=== PATIENT | female | born 1970 | race Caucasian/White ===

== ENCOUNTER 2016-12-25 01:29 | Emergency (ER) | payer SELFPAY ==
[2016-12-25] MEDS ORDERED: Sodium Chloride 0.9% 10 ML Syringe FLUSH PRN (01:43)
[2016-12-25] MEDS ORDERED: Ketorolac 30 MG/ML SDV IVPUSH ONE (01:43)
[2016-12-25] MEDS ORDERED: Ondansetron 4 MG/2 ML SDV IVPUSH ONE (01:44)
[2016-12-25] MEDS ORDERED: Sodium Chloride 0.9% 1,000 ML IV SCH (01:45)
--- NOTE | 2016-12-25 01:48 | EDM.PDOC ---
ED HPI GI/ABDOMINAL - General Chief Complaint: Abdominal Pain Stated Complaint: abdominal pain Time Seen by Provider: 12/25/16 01:38 Source of Information: Reports: Patient, RN, RN notes reviewed History Limitations: Reports: No limitations - History of Present Illness INITIAL COMMENTS - FREE TEXT/NARRATIVE: Patient presents to the ED at [facility] with a 5 day history of lower abdominal/pelvic pain. Patient states she started not feeling well last . She feels very nauseated and started noticing blood in the urine yesterday. Her pain has progressively gotten worse. No vomiting or diarrhea. Patient is only voiding small amounts with dysuria. Symptom Onset Date: 12/19/16 Timing/Duration: Reports: Getting worse Location: other (lower abdomen/pelvic) Quality: Reports: burning, cramping Severity: moderate Improves with: Reports: lying down Worsens with: Reports: urinating, palpation, sitting up Context: Denies: sick contact, bad/questionable food, out of country travel, recent surgery, recent trauma Associated Symptoms (-Female): Reports: nausea/vomiting - Related Data Allergies/ADRs: Allergies Allergy/AdvReac Type Severity Reaction Status Date / Time No Known Drug Allergies Allergy Other Verified 12/25/16 01:32 Home Meds: Home Meds Dextroamphetamine/Amphetamine [Amphetamine Salts] 10 mg PO ASDIRECTED 12/12/13 [ History] Ibuprofen 1 tab PO Q4H PRN 01/07/15 [History] Naproxen Sodium 220 mg PO BID PRN 01/07/15 [History] medroxyPROGESTERone [Depo-Provera Contraceptive] 150 mg IM Q3M 01/07/15 [History ] Hydrochlorothiazide 12.5 mg PO DAILY 12/25/16 [History] Past Medical History Cardiovascular History: Reports: Hypertension Genitourinary History: Reports: Renal calculus Psychiatric History: Reports: ADHD Immunologic 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 (see below) Other Immunologic History: sarcoidosis Social & Family History - Tobacco Use Smoking Status *Q: Current Every Day Smoker Years of Tobacco use: 33 Packs/Tins Daily: 1 Second Hand Smoke Exposure: Yes - Alcohol Use Days Per Week of Alcohol Use: 0 - Recreational Drug Use Recreational Drug Use: No ED ROS GENERAL - Review of Systems Review Of Systems: See Below Constitutional: Denies: fever, chills, weakness Respiratory: Denies: Shortness of Breath, Cough Cardiovascular: Denies: Chest pain, Palpitations GI/Abdominal: Reports: Abdominal pain, Nausea. Denies: Diarrhea, Vomiting : Reports: dysuria, flank pain, hematuria Skin: Reports: no symptoms Neurological: Reports: No Symptoms. Denies: Dizziness, Headache ED EXAM, GI/ABD - Physical Exam Exam: See Below Exam Limited By: No limitations General Appearance: alert, no apparent distress, thin, cachetic Respiratory/Chest: no respiratory distress, lungs clear, normal breath sounds Cardiovascular: regular rate, rhythm GI/Abdominal: hyperactive bowel sounds, tenderness, guarding. No: rebound, rigidity (Female) Exam: Deferred Neurological: alert, oriented Skin Exam: Warm, Dry, Intact, Normal color, No rash Course - Vital Signs Last Recorded V/S: Last Vital Signs Temp 36.9 C 12/25/16 03:20 Pulse 74 12/25/16 03:20 Resp 16 12/25/16 03:20 BP 130/83 12/25/16 03:20 Pulse Ox 100 12/25/16 03:20 - Orders/Labs/Meds Orders: Active Orders 24 hr Category Date Time Status Abdomen Pelvis wo Cont [CT] Stat Exams 12/25/16 01:42 Taken AMPHET/METH EXT CONF (GCMS) Stat Lab 12/25/16 02:00 Received Sodium Chloride 0.9% [Normal Saline] 1,000 ml Med 12/25/16 01:45 Active IV ASDIRECTED Sodium Chloride 0.9% [Saline Flush] Med 12/25/16 01:43 Active 10 ml FLUSH ASDIRECTED PRN Peripheral IV Insertion Adult [OM.PC] Routine Oth 12/25/16 01:43 Ordered Medication Orders Sodium Chloride (Normal Saline) 1,000 mls @ 999 mls/hr IV ASDIRECTED CJ Last Admin: 12/25/16 01:55 Dose: 999 mls/hr Sodium Chloride (Saline Flush) 10 ml FLUSH ASDIRECTED PRN PRN Reason: Keep Vein Open Labs: Laboratory Tests 12/25/16 12/25/16 12/25/16 Range/Units 02:00 02:00 02:00 WBC (4.0-10.0) x10^3/uL RBC (4.00-5.50) x10^6/uL Hgb (12.0-16.0) g/dL Hct (33.0-47.0) % MCV (78.0-93.0) fL MCH (26.0-32.0) pg MCHC (32.0-36.0) g/dL RDW Coeff of Jen (10.0-15.0) % Plt Count (130-400) x10^3/uL Add Manual Diff Neutrophils % (Manual) (50-80) % Band Neutrophils % (0-6) % Lymphocytes % (Manual) (25-50) % Monocytes % (Manual) (2-11) % Eosinophils % (Manual) (0-4) % Basophils % (Manual) (0-1) % Platelet Estimate Sodium (136-145) mmol/L Potassium (3.5-5.1) mmol/L Chloride (98-107) mmol/L Carbon Dioxide (21-32) mmol/L BUN (7-18) mg/dL Creatinine (0.55-1.02) mg/dL Est Cr Clr Drug Dosing Estimated GFR (MDRD) Glucose (74-106) mg/dL Calcium (8.5-10.1) mg/dL Urine Color Yellow (YELLOW) Urine Appearance Slightly cloudy H (CLEAR) Urine pH 7.0 (5.0-8.0) Ur Specific Loa 1.020 Urine Protein Negative (NEGATIVE) mg/dL Urine Glucose (UA) Negative (NEGATIVE) mg/dL Urine Ketones Negative (NEGATIVE) mg/dL Urine Occult Blood Negative (NEGATIVE) Urine Nitrite Negative (NEGATIVE) Urine Bilirubin Negative (NEGATIVE) Urine Urobilinogen 0.2 (0.2) EU/dL Ur Leukocyte Esterase Negative (NEGATIVE) Urine RBC 0-5 (NOT SEEN) /HPF Urine WBC 0-5 (NOT SEEN) /HPF Ur Squamous Epith Cells Moderate H (NEGATIVE) /HPF Amorphous Sediment Moderate Urine Bacteria Moderate H (NEGATIVE) /HPF Granular Casts Few H (NEGATIVE) /HPF Urine Mucus Few H (NEGATIVE) /LPF Urine HCG, Qual Negative (NEGATIVE) Urine Opiates Screen Negative (NEGATIVE) Ur Buprenorphine Scrn Negative (NEGATIVE) Ur Oxycodone Screen Negative (NEGATIVE) Urine Methadone Screen Negative (NEGATIVE) Ur Barbiturates Screen Negative (NEGATIVE) Ur Tricyclics Screen Negative (NEGATIVE) Ur Amphetamine Screen Positive H (NEGATIVE) U Methamphetamines Scrn Negative (NEGATIVE) Urine MDMA Screen Negative (NEGATIVE) U Benzodiazepines Scrn Negative (NEGATIVE) U Cocaine Metab Screen Negative (NEGATIVE) U Marijuana (THC) Screen Negative (NEGATIVE) 12/25/16 12/25/16 Range/Units 02:10 02:10 WBC 11.7 H (4.0-10.0) x10^3/uL RBC 3.99 L (4.00-5.50) x10^6/uL Hgb 12.7 (12.0-16.0) g/dL Hct 36.4 (33.0-47.0) % MCV 91.2 (78.0-93.0) fL MCH 31.8 (26.0-32.0) pg MCHC 34.9 (32.0-36.0) g/dL RDW Coeff of Jen 12.9 (10.0-15.0) % Plt Count 297 (130-400) x10^3/uL Add Manual Diff Yes Neutrophils % (Manual) 52 (50-80) % Band Neutrophils % 1 (0-6) % Lymphocytes % (Manual) 32 (25-50) % Monocytes % (Manual) 7 (2-11) % Eosinophils % (Manual) 6 H (0-4) % Basophils % (Manual) 2 H (0-1) % Platelet Estimate Adequate Sodium 143 (136-145) mmol/L Potassium 3.3 L (3.5-5.1) mmol/L Chloride 108 H (98-107) mmol/L Carbon Dioxide 27 (21-32) mmol/L BUN 10 (7-18) mg/dL Creatinine 0.7 (0.55-1.02) mg/dL Est Cr Clr Drug Dosing TNP Estimated GFR (MDRD) > 60 Glucose 101 (74-106) mg/dL Calcium 8.1 L (8.5-10.1) mg/dL Urine Color (YELLOW) Urine Appearance (CLEAR) Urine pH (5.0-8.0) Ur Specific Loa Urine Protein (NEGATIVE) mg/dL Urine Glucose (UA) (NEGATIVE) mg/dL Urine Ketones (NEGATIVE) mg/dL Urine Occult Blood (NEGATIVE) Urine Nitrite (NEGATIVE) Urine Bilirubin (NEGATIVE) Urine Urobilinogen (0.2) EU/dL Ur Leukocyte Esterase (NEGATIVE) Urine RBC (NOT SEEN) /HPF Urine WBC (NOT SEEN) /HPF Ur Squamous Epith Cells (NEGATIVE) /HPF Amorphous Sediment Urine Bacteria (NEGATIVE) /HPF Granular Casts (NEGATIVE) /HPF Urine Mucus (NEGATIVE) /LPF Urine HCG, Qual (NEGATIVE) Urine Opiates Screen (NEGATIVE) Ur Buprenorphine Scrn (NEGATIVE) Ur Oxycodone Screen (NEGATIVE) Urine Methadone Screen (NEGATIVE) Ur Barbiturates Screen (NEGATIVE) Ur Tricyclics Screen (NEGATIVE) Ur Amphetamine Screen (NEGATIVE) U Methamphetamines Scrn (NEGATIVE) Urine MDMA Screen (NEGATIVE) U Benzodiazepines Scrn (NEGATIVE) U Cocaine Metab Screen (NEGATIVE) U Marijuana (THC) Screen (NEGATIVE) Meds: Medications Generic Name Dose Route Start Last Admin Trade Name Freq PRN Reason Stop Dose Admin Sodium Chloride 1,000 mls @ 999 mls/hr 12/25/16 01:45 12/25/16 01:55 Normal Saline IV 999 mls/hr ASDIRECTED CJ Administration Sodium Chloride 10 ml 12/25/16 01:43 Saline Flush FLUSH ASDIRECTED PRN Keep Vein Open Discontinued Medications Generic Name Dose Route Start Last Admin Trade Name Freq PRN Reason Stop Dose Admin Ketorolac Tromethamine 30 mg 12/25/16 01:43 12/25/16 01:56 Toradol IVPUSH 12/25/16 01:44 30 mg ONETIME ONE Administration Ondansetron HCl 4 mg 12/25/16 01:44 12/25/16 01:56 Zofran IVPUSH 12/25/16 01:45 4 mg ONETIME ONE Administration Potassium Chloride 40 meq 12/25/16 02:37 12/25/16 03:18 Klor-Con M20 PO 12/25/16 02:38 40 meq ONETIME ONE Administration - Radiology Interpretation Free Text/Narrative:: Multiple small bilateral renal cysts and nonobstructing calyceal stones again demostrated No urinary tract obstruction, appendicitis, or other acute abdominopelvic process, but there is moderate predominately proximal colonic stool; correlate clinically for possible proximal constipation See scanned report CT Results Date: 12/25/16 CT Results Time: 03:24 Departure - Departure Time of Disposition: 03:30 Disposition: Home, Self-Care 01 Condition: good Clinical Impression: Constipation Qualifiers: Constipation type: unspecified constipation type Qualified Code(s): K59.00 - Constipation, unspecified Instructions: Constipation, Adult, [id number] Referrals: Kaleigh Hernandez DO [Physician] - Forms: ED Department Discharge - Problem List Review Problem List Initiated/Reviewed/Updated: Yes - My Orders Last 24 Hours: My Active Orders 12/25/16 01:42 Abdomen Pelvis wo Cont [CT] Stat 12/25/16 01:43 Sodium Chloride 0.9% [Saline Flush] 10 ml FLUSH ASDIRECTED PRN Peripheral IV Insertion Adult [OM.PC] Routine 12/25/16 01:45 Sodium Chloride 0.9% [Normal Saline] 1,000 ml IV ASDIRECTED 12/25/16 02:00 AMPHET/METH EXT CONF (GCMS) Stat - Assessment/Plan Last 24 Hours: My Active Orders 12/25/16 01:42 Abdomen Pelvis wo Cont [CT] Stat 12/25/16 01:43 Sodium Chloride 0.9% [Saline Flush] 10 ml FLUSH ASDIRECTED PRN Peripheral IV Insertion Adult [OM.PC] Routine 12/25/16 01:45 Sodium Chloride 0.9% [Normal Saline] 1,000 ml IV ASDIRECTED 12/25/16 02:00 AMPHET/METH EXT CONF (GCMS) Stat
[2016-12-25 02:30] LABS: CHLORIDE,CL 108 mmol/L (98-107); SODIUM,NA 143 mmol/L (136-145)
[2016-12-25] MEDS ORDERED: Potassium Chloride 20 MEQ Tab.ER PO ONE (02:37)
[2016-12-25 03:21] VITALS: BP 130/83
== END 2016-12-25 03:47 | disposition home or self-care (01) ==
LOC: VM.ED 01:29
DX: K59.00 Constipation, unspecified (principal); I10 Essential (primary) hypertension; F17.210 Nicotine dependence, cigarettes, uncomplicated; Z79.899 Other long term (current) drug therapy
CPT/HCPCS: 36415; 74176; 80048; 80305; 81001; 81025; 85025; 96361; 96372; 96374; 99284; A9270; G0480; J1885; J2405; J7030

== ENCOUNTER 2017-12-18 17:38 | Emergency (ER) | payer OTHER, BC ==
[2017-12-18] MEDS ORDERED: Lidocaine 1% 30 ML SDV INJECT ONE (17:45)
[2017-12-18] MEDS ORDERED: Take Home: Acetaminophen/HYDROcodone 325-10 MG, 5 Tab Pack PO ONE (19:06)
[2017-12-18] MEDS ORDERED: Take Home: Cephalexin 500 MG Cap, 4 Cap Pack PO ONE (19:06)
[2017-12-18 19:30] VITALS: BP 158/105
--- NOTE | 2017-12-18 19:50 | EDM.PDOC ---
ED HPI GENERAL MEDICAL PROBLEM - General Chief Complaint: Upper Extremity Injury/Pain Time Seen by Provider: 12/18/17 17:40 Source of Information: Reports: Patient History Limitations: Reports: No Limitations - History of Present Illness INITIAL COMMENTS - FREE TEXT/NARRATIVE: PtAmmy presents to ER with complaints to injury to the tip of her L middle finger. 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 She states that she sustained a laceration to the pad of her L middle finger, as well as discoloration to the nailbed. She denies any other injury than what is isolated to the tip of her finger. Onset: Today Location: Reports: Upper Extremity, Left Quality: Reports: Ache, Burning, Sharp, Stabbing, Throbbing Left 3-Middle finger Pain Score (Numeric/FACES): 10 - Related Data Allergies Allergy/AdvReac Type Severity Reaction Status Date / Time No Known Drug Allergies Allergy Other Verified 12/25/16 01:32 Home Meds: Home Meds Dextroamphetamine/Amphetamine [Amphetamine Salts] 10 mg PO ASDIRECTED 12/12/13 [ History] Ibuprofen 1 tab PO Q4H PRN 01/07/15 [History] Naproxen Sodium 220 mg PO BID PRN 01/07/15 [History] medroxyPROGESTERone [Depo-Provera Contraceptive] 150 mg IM Q3M 01/07/15 [History ] Hydrochlorothiazide 12.5 mg PO DAILY 12/25/16 [History] Past Medical History Cardiovascular History: Reports: Hypertension Respiratory 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 (See Below) Other Respiratory History: sarcoidosis Genitourinary History: Reports: Renal Calculus 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) Other OB/BYN History: 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 Musculoskeletal History: Reports: Fibromyalgia, Other (See Below) Other Musculoskeletal History: arthralgia of both hands Psychiatric History: Reports: ADHD Immunologic 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 (See Below) Other Immunologic History: sarcoidosis Social & Family History - Tobacco Use Smoking Status *Q: Current Every Day Smoker Years of Tobacco use: 30 Packs/Tins Daily: 1.5 Second Hand Smoke Exposure: Yes - Alcohol Use Days Per Week of Alcohol Use: 0 - Recreational Drug Use Recreational Drug Use: No Review of Systems - Review of Systems Review Of Systems: See Below Constitutional: Reports: No Symptoms Musculoskeletal: Reports: Hand Pain (L middle finger) Skin: Reports: No Symptoms Neurological: Reports: No Symptoms ED EXAM, GENERAL - Physical Exam Exam: See Below Exam Limited By: No Limitations General Appearance: Alert, WD/WN, No Apparent Distress Extremities: Other (1.5 cm laceration to volar aspect of L middle finger. bluish discoloration to nail bed consistent with subungual hematoma. No obvious crepitus or deformity. ROM to DIP is normal.) Neurological: Alert, Oriented, CN II-XII Intact, Normal Cognition, Normal Gait, Normal Reflexes, No Motor/Sensory Deficits ED TRAUMA EXTREMITY PROCEDURES - Laceration/Wound Repair Left Middle Distal Dorsal Finger Lac/Wound Length In cm: 1.5 Appearance: Superficial Distal NVT: Neuro & Vascular Intact Anesthetic Type: Digital Local Anesthesia - Lidocaine (Xylocaine): 1% Plain Local Anesthetic Volume: 5cc Skin Prep: Chlorhexidine (Hibiciens), Saline Saline Irrigation (cc's): 500 Exploration/Debridement/Repair: Wound Explored, Explored to Base, Minimal Debridement, No Foreign Material Found Closed With: Sutures Suture Size: 4-0 # of Sutures: 3 Suture Type: Nylon, Interrupted, Simple Tetanus Status Addressed: Yes (UTD according to pt.) Progress/Comments: Finger was cleansed with saline and chlorhexidine. Using sterile technique, digital block was placed in base of 3rd digit of L hand using 4 ml. of 1% lidocaine. 1.5 ml lidocaine was placed in laceration. A total of 3 interrupted 4.0 nylon sutures was used to close the laceration. The nail was further cleansed with betadine and nail was trephinated with disposable bovie. Minimal blood was removed from fingernail. Antibiotic ointment was placed on laceration and zerofoam was used to cover the fingertip. This was secured with gauze sponges and tube gauze. - Splinting Left 3rd Digit Pre-Procedure NV Status: Normal Post-Procedure NV Status: Normal Splint Material: Aluminum-Foam Splint Design: Other (baseball fingertip splint) Applied & Form Fitted By: Provider Provider Post-Splint Application NV Check: NV Status Normal, Good Position Complications: No Course - Vital Signs Last Recorded V/S: Last Vital Signs Temp 36.1 C 12/18/17 17:41 Pulse 97 12/18/17 17:41 Resp 22 H 12/18/17 17:41 BP 158/105 H 12/18/17 19:29 Pulse Ox 99 12/18/17 17:41 - Orders/Labs/Meds Orders: Active Orders 24 hr Category Date Time Status Fingers Third Digit Lt F2 [CR] Stat Exams 12/18/17 17:58 Taken Meds: Medications Discontinued Medications Generic Name Dose Route Start Last Admin Trade Name Freq PRN Reason Stop Dose Admin Hydrocodone Bitart/Acetaminophen 1 packet 12/18/17 19:06 Take Home: Acetaminophen/Hydrocodone 325-10mg PO 12/18/17 19:07 ONETIME ONE Cephalexin 1 packet 12/18/17 19:06 Take Home: Cephalexin 500 Mg, 4 Cap Pack PO 12/18/17 19:07 ONETIME ONE Lidocaine HCl 30 ml 12/18/17 17:45 12/18/17 17:45 Xylocaine-Mpf 1% INJECT 12/18/17 17:46 30 ml ONETIME ONE Administration - Radiology Interpretation Free Text/Narrative:: acute nondisplaced fracture of distal phalanx (3rd digit L hand) was noted. Departure - Departure Time of Disposition: 19:49 Disposition: Home, Self-Care 01 Condition: Good Clinical Impression: Phalanx, distal fracture of finger, Laceration, Subungual hematoma of left middle finger - Discharge Information Instructions: Finger Fracture, Laceration Care, Adult, Nail Bed Injury Referrals: Kaleigh Hernandez DO [Primary Care Provider] - Forms: ED Department Discharge Additional Instructions: Change dressing in 48 hours. Sutures out in 14 days. Keflex 500mg three times daily for 7 days. Albia 10/325mg 1 every 4-6 hours as needed for pain. Clean nailbed with qtip with warm water several times a day to keep nail trephination holes open. Keep laceration covered if still oozing blood. Otherwise, keep open to air as much as possible. - My Orders Last 24 Hours: My Active Orders 12/18/17 17:58 Fingers Third Digit Lt F2 [CR] Stat - Assessment/Plan Last 24 Hours: My Active Orders 12/18/17 17:58 Fingers Third Digit Lt F2 [CR] Stat Assessment:: Distal phalynx fracture 3rd digit L hand 1.5cm laceration to 3rd digit L hand Subungual hematoma with trephination 3rd digit L hand.
== END 2017-12-18 19:49 | disposition home or self-care (01) ==
LOC: VM.ED 17:38
DX: S62.663A Nondisplaced fracture of distal phalanx of left middle finger, initial encounter for closed fracture (principal); S61.213A Laceration without foreign body of left middle finger without damage to nail, initial encounter; I10 Essential (primary) hypertension; Z79.899 Other long term (current) drug therapy; W31.89XA Contact with other specified machinery, initial encounter
CPT/HCPCS: 12001; 73140; 99283; A9270

== ENCOUNTER 2018-11-06 16:24 | Emergency (ER) | payer OTHER, BC ==
[2018-11-06 16:41] VITALS: BP 132/87
--- NOTE | 2018-11-06 17:26 | CR ---
[id number] RAD/RAD Fingers Right EXAM: RAD Fingers Right CLINICAL DATA: TRAUMA COMPARISON: NO PREVIOUS SIMILAR EXAM IS AVAILABLE. FINDINGS: No fracture or dislocation is seen. There is no radiopaque foreign body in the soft tissues. There is no air in the soft tissues. There is no cortical thickening or periosteal reaction either. IMPRESSION: NEGATIVE PLAIN FILM EXAM. Marco Scanlon MD 11/06/18 [id number] Thank you for allowing us to participate in the care of your patient.
--- NOTE | 2018-11-06 17:50 | EDM.PDOC ---
ED HPI GENERAL MEDICAL PROBLEM - General Chief Complaint: Upper Extremity Injury/Pain Time Seen by Provider: 11/06/18 16:35 Source of Information: Reports: Patient History Limitations: Reports: No Limitations - History of Present Illness INITIAL COMMENTS - FREE TEXT/NARRATIVE: PtAmmy presents to ER with complaints of pain to the 5th digit of the R hand. States that she injured it at work yesterday. She was moving heavy totes that were attached to a rope and the rope became wrapped around the digit, injuring it at the base. Denies any paresthesia to the extremity. Does complain of decreased ROM, particularly to the MCP. Denies any injury elsewhere other than what is isolated to the finger. Onset: Today Onset Date: 11/05/18 Location: Reports: Upper Extremity, Right Quality: Reports: Ache, Throbbing Severity: Moderate Improves with: Reports: Rest Worsens with: Reports: Movement Right Finger-Little Pain Score (Numeric/FACES): 7 - Related Data Allergies Allergy/AdvReac Type Severity Reaction Status Date / Time No Known Drug Allergies Allergy Other Verified 11/06/18 16:43 Home Meds: Home Meds Dextroamphetamine/Amphetamine [Amphetamine Salts] 10 mg PO ASDIRECTED 12/12/13 [ History] Ibuprofen 1 tab PO Q4H PRN 01/07/15 [History] Naproxen Sodium 220 mg PO BID PRN 01/07/15 [History] medroxyPROGESTERone [Depo-Provera Contraceptive] 150 mg IM Q3M 01/07/15 [History ] hydroCHLOROthiazide [Hydrochlorothiazide] 25 mg PO DAILY 12/25/16 [History] Past Medical History Cardiovascular History: Reports: Hypertension Respiratory 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 (See Below) Other Respiratory History: sarcoidosis Genitourinary History: Reports: Renal Calculus 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 ), Other Neurological: Reports: No Symptoms, Other. Denies: Numbness, Paresthesia ED EXAM, GENERAL - Physical Exam Exam: See Below Extremities: Normal Capillary Refill, Joint Swelling, Limited Range of Motion, Increased Warmth Course - Vital Signs Last Recorded V/S: Last Vital Signs Temp 36.8 C 11/06/18 16:30 Pulse 89 11/06/18 16:30 Resp 16 11/06/18 16:30 BP 132/87 11/06/18 16:30 Pulse Ox 100 11/06/18 16:30 - Radiology Interpretation Free Text/Narrative:: No acute pathology noted on radiographs. Departure - Departure Time of Disposition: 18:03 Disposition: Home, Self-Care 01 Clinical Impression: Finger sprain - Discharge Information Instructions: Finger Sprain, Adult, [id number], How to Deny Tape, HUNTER for Routine Care of Injuries Referrals: Kaleigh Hernandez DO [Primary Care Provider] - Forms: ED Department Discharge Additional Instructions: Tylenol and ibuprofen as needed Ice the area for 15 min every 1-2 hours to decrease inflammation Slowly work on improving range of motion to the fingers. Deny tape the fingers as needed, especially if you are using your hands for work If continuing to have discomfort, follow-up in clinic in 7-10 days for repeat x- rays. - Assessment/Plan Plan: Tylenol and ibuprofen as needed Ice the area for 15 min every 1-2 hours to decrease inflammation Slowly work on improving range of motion to the fingers. Deny tape the fingers as needed, especially if you are using your hands for work If continuing to have discomfort, follow-up in clinic in 7-10 days for repeat x- rays.
== END 2018-11-06 17:25 | disposition home or self-care (01) ==
LOC: VM.ED 16:24
DX: S63.616A Unspecified sprain of right little finger, initial encounter (principal); I10 Essential (primary) hypertension; Z79.899 Other long term (current) drug therapy; Y99.0 Civilian activity done for income or pay; X50.9XXA Other and unspecified overexertion or strenuous movements or postures, initial encounter
CPT/HCPCS: 73140-F9; 99283-25

== ENCOUNTER 2019-05-30 15:39 | Emergency (ER) | payer BC ==
[2019-05-30] MEDS ORDERED: Albuterol/Ipratropium 3.0-0.5 MG/3 ML Neb Soln NEB ONE (15:51)
[2019-05-30] MEDS ORDERED: Dexamethasone 4 MG/ML SDV IM ONE (15:51)
[2019-05-30] MEDS ORDERED: Benzonatate 100 MG Cap PO PRN (15:56)
--- NOTE | 2019-05-30 15:57 | EDM.PDOC ---
ED HPI GENERAL MEDICAL PROBLEM - General Chief Complaint: General Stated Complaint: RESPIRATORY Time Seen by Provider: 05/30/19 15:45 Source of Information: Reports: Patient History Limitations: Reports: No Limitations - History of Present Illness INITIAL COMMENTS - FREE TEXT/NARRATIVE: Patient comes into the emergency department with complaint of right upper musculoskeletal discomfort in the chest. She also complains about a chronic cough that she's been struggling with symptoms March. Patient states that she has followed up with her primary care provider who has given her an inhaler. She has seen pulmonology in the past regarding her chronic cough and sarcoidosis. She has not followed up with anyone it in extended period of time for she's been feeling pretty well. She states back in March she started with this cough and it is slowly progress. She denies having any fever, nausea, shortness of breath, chest pain, or peripheral edema. She states that the cough is more prevalent when she is trying to lay flat or rests. The cough has not changed in the past 2 months. She states about 2 days ago she started noticing a right sided musculoskeletal discomfort after a severe coughing episode. She states it's palpable to touch on her right upper chest discomfort is described as a throbbing sensation with movement or touching the area. The discomfort is reproducible and palpable/tender. Pt denies any trauma or falls in that area. Patient denies any other concerns or complaints and states that she's been relatively healthy. Onset: Gradual Location: Reports: Chest Quality: Reports: Throbbing Severity: Moderate Improves with: Reports: Other (elevating head) Worsens with: Reports: Movement (or laying flat) Associated Symptoms: Reports: No Other Symptoms Right Chest Pain Score (Numeric/FACES): 10 - Related Data Allergies Allergy/AdvReac Type Severity Reaction Status Date / Time No Known Drug Allergies Allergy Other Verified 05/30/19 15:53 Home Meds: Home Meds Albuterol Sulfate [Albuterol Sulfate Hfa] 2 inh Q6H PRN 05/30/19 [History] Amphetamine Sulfate [Evekeo Odt] 20 mg ASDIRECTED 05/30/19 [History] Benzonatate [Tessalon Perle] 100 mg PO TID #15 capsule 05/30/19 [Rx] Citalopram Hydrobromide [Celexa] 40 mg DAILY 05/30/19 [History] Codeine/Promethazine [Phenergan with Codeine] 10 ml BEDTIME 05/30/19 [History] hydroCHLOROthiazide [Hydrochlorothiazide] 25 mg DAILY 05/30/19 [History] predniSONE [Prednisone] 20 mg PO BID #8 tablet 05/30/19 [Rx] Past Medical History Cardiovascular History: Reports: Hypertension Respiratory 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 (See Below) Other Respiratory History: sarcoidosis Genitourinary History: Reports: Renal Calculus 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 Denies: Shortness of Breath, Sputum Cardiovascular: Reports: No Symptoms Endocrine: Reports: No Symptoms GI/Abdominal: Reports: No Symptoms : Reports: No Symptoms Musculoskeletal: Reports: No Symptoms Skin: Reports: No Symptoms Neurological: Reports: No Symptoms Psychiatric: Reports: No Symptoms Hematologic/Lymphatic: Reports: No Symptoms Immunologic: Reports: No Symptoms ED EXAM, GENERAL - Physical Exam Exam: See Below Exam Limited By: No Limitations General Appearance: Alert, WD/WN, No Apparent Distress Nose: Normal Inspection, Nasal Swelling Throat/Mouth: Normal Inspection, Normal Lips, No Airway Compromise Head: Atraumatic, Normocephalic, Facial Swelling Respiratory/Chest: No Accessory Muscle Use, Wheezing, Stridor. No: Decreased Breath Sounds, Accessory Muscle Use Cardiovascular: Normal Peripheral Pulses, Regular Rate, Rhythm, No Edema, Other (palpable tenderness right upper lateral chest. No redness, warmth, deformity, or ecchymosis noted. Palpation and arm lifting causes discomfort but can do it. If resting no pain/discomfort noted. ) Extremities: Normal Inspection, Normal Range of Motion, Non-Tender, No Pedal Edema, Normal Capillary Refill Neurological: Alert, Oriented, CN II-XII Intact, Normal Cognition, Normal Gait Psychiatric: Normal Affect, Normal Mood Skin Exam: Dry, Intact Course - Vital Signs Last Recorded V/S: Last Vital Signs Temp 36.1 C 05/30/19 15:40 Pulse 91 05/30/19 15:40 Resp 20 05/30/19 15:40 BP 138/85 05/30/19 15:40 Pulse Ox 97 05/30/19 15:40 - Orders/Labs/Meds Orders: Active Orders 24 hr Category Date Time Status RT Aerosol Therapy [RC] ASDIRECTED Care 05/30/19 15:51 Ordered Chest 2V [CR] Stat Exams 05/30/19 15:50 Ordered Benzonatate [Tessalon Perles] Med 05/30/19 15:56 Ordered 200 mg PO TID PRN Medication Orders Benzonatate (Tessalon Perles) 200 mg PO TID PRN PRN Reason: Cough Last Admin: 05/30/19 16:13 Dose: 200 mg Meds: Medications Generic Name Dose Route Start Last Admin Trade Name Freq PRN Reason Stop Dose Admin Benzonatate 200 mg 05/30/19 15:56 05/30/19 16:13 Tessalon Perles PO 200 mg TID PRN Administration Cough Discontinued Medications Generic Name Dose Route Start Last Admin Trade Name Freq PRN Reason Stop Dose Admin Albuterol/Ipratropium 3 ml 05/30/19 15:51 05/30/19 16:13 Duoneb 3.0-0.5 Mg/3 Ml NEB 05/30/19 15:52 3 ml ONETIME ONE Administration Dexamethasone 8 mg 05/30/19 15:51 05/30/19 16:13 Dexamethasone IM 05/30/19 15:52 8 mg ONETIME ONE Administration Departure - Departure Time of Disposition: 16:25 Disposition: Home, Self-Care 01 Condition: Good Clinical Impression: Bronchospasm, Costochondral chest pain - Discharge Information *PRESCRIPTION DRUG MONITORING PROGRAM REVIEWED*: Not Applicable *COPY OF PRESCRIPTION DRUG MONITORING REPORT IN PATIENT GENO: Not Applicable Prescriptions: Benzonatate [Tessalon Perle] 100 mg PO TID #15 capsule predniSONE [Prednisone] 20 mg PO BID #8 tablet Instructions: Bronchospasm, Adult, Costochondritis, [id number], Chest Wall Pain, [id number] Forms: ED Department Discharge, ED Return to Work/School Form Additional Instructions: 1. rest 2. take prednisone 20mg BID for 5 days 3. Can take the Tessalon pearles to help for severe coughing episodes 4. Follow up with PCP if not better 5. For the costochondritis apply ice to the chest 3-4 times a day if needed, splint the region when coughing 6. Activity and diet as tolerated 7. Call with any questions or concerns - My Orders Last 24 Hours: My Active Orders 05/30/19 15:50 Chest 2V [CR] Stat 05/30/19 15:51 RT Aerosol Therapy [RC] ASDIRECTED 05/30/19 15:56 Benzonatate [Tessalon Perles] 200 mg PO TID PRN - Assessment/Plan Last 24 Hours: My Active Orders 05/30/19 15:50 Chest 2V [CR] Stat 05/30/19 15:51 RT Aerosol Therapy [RC] ASDIRECTED 05/30/19 15:56 Benzonatate [Tessalon Perles] 200 mg PO TID PRN Assessment:: 1. bronchospasm 2. muscle strain Plan: 1. x-ray completed in ER. Results reviewed with the patient 2. dexamethasone given in ER. 3. Duoneb given in ER. 4. Pt sent home with prednisone take home pack and Tessalon perles along with a script. 5. Patients cough has not changed over the course of the last 3 months- she is being treated with PCP, she currently has no fever or illness, and her concern today was the palpable/reproducible tenderness on the right upper chest. 5. Education provided regarding pulled muscle and OTC medication, ice therapy and compression, and follow up education information provided 6. All questions and concerns addressed prior to discharge
[2019-05-30 16:05] VITALS: BP 138/85; PULSE 91
--- NOTE | 2019-05-30 16:29 | CR ---
[id number] RAD/RAD Chest PA And Lateral EXAM: RAD Chest PA And Lateral INDICATION: COUGH. COMPARISON: None. DISCUSSION: Cardiomediastinal silhouette is normal in size and contour. No infiltrate, effusion, pneumothorax, or edema. IMPRESSION: Negative examination of the chest. Herman Cuenca MD 05/30/19 2263 Thank you for allowing us to participate in the care of your patient.
== END 2019-05-30 16:35 | disposition home or self-care (01) ==
LOC: VM.ED 15:39
DX: J98.01 Acute bronchospasm (principal); M94.0 Chondrocostal junction syndrome [Tietze]; I10 Essential (primary) hypertension; F90.9 Attention-deficit hyperactivity disorder, unspecified type; Z79.899 Other long term (current) drug therapy
CPT/HCPCS: 71046; 94640; 96372; 99283-25; A9270-GY; J1100; J7620-GY

== ENCOUNTER 2019-09-16 06:00 | Emergency (ER) | payer BC ==
[2019-09-16 06:15] VITALS: BP 146/84; PULSE 88
[2019-09-16] MEDS ORDERED: Fluorescein 1 MG Ophth Strip EYELF ONE (06:17)
[2019-09-16] MEDS ORDERED: Proparacaine 0.5% Ophth Soln 15 ML Bottle EYELF ONE (06:18)
[2019-09-16] MEDS ORDERED: Take Home: Gentamicin 0.3% Ophth Soln 5 ML, 1 Bottle Pack EYELF ONE (06:33)
[2019-09-16] MEDS ORDERED: Take Home: Diclofenac Sodium 0.1% Ophth Soln 5 ML, 1 Bottle Pack EYEBOTH ONE (06:34)
--- NOTE | 2019-09-16 06:48 | EDM.PDOC ---
ED HPI GENERAL MEDICAL PROBLEM - General Chief Complaint: ENT Problem Stated Complaint: FB in left eye Time Seen by Provider: 09/16/19 06:05 Source of Information: Reports: Patient History Limitations: Reports: No Limitations - History of Present Illness INITIAL COMMENTS - FREE TEXT/NARRATIVE: PtAmmy presents to ER with complaints of something in her eye. She states that she works at [employer] and has had irritation to L eye since yesterday. Denies any obvious blow, injury or trauma to eye. Denies any specific event that lead of to this but states that there is a lot of irritants in there air at her workplace. She states that she had been wearing contact lenses which she has removed from the L eye which has affected her visual acuity. She feels that her change if acuity is due to watering of the eye/irritation and due to the fact that the contact has been removed. She is scheduled to work another shift at [employer] today. Onset: Today Onset Date: 09/16/19 Duration: Constant Location: Reports: Face (L eye) Quality: Reports: Burning Treatments CITRIX LEAD: Reports: Other (see below) Other Treatments CITRIX LEAD: Took her contact out left eye Pain Score (Numeric/FACES): 8 - Related Data Allergies Allergy/AdvReac Type Severity Reaction Status Date / Time varenicline [From Chantix] Allergy Other Verified 09/16/19 06:14 Home Meds: Home Meds Albuterol Sulfate [Albuterol Sulfate Hfa] 2 inh Q6H PRN 05/30/19 [History] Citalopram Hydrobromide [Celexa] 40 mg DAILY 05/30/19 [History] hydroCHLOROthiazide [Hydrochlorothiazide] 25 mg DAILY 05/30/19 [History] Cyanocobalamin (Vitamin B-12) [B-12] 1,000 mcg PO DAILY 08/02/19 [History] Dextroamphetamine/Amphetamine [Adderall 20 mg Tablet] 10 - 20 mg PO TID [History] Gabapentin [Neurontin] 300 mg PO BEDTIME 08/02/19 [History] Hydrocodone/Acetaminophen [[place] 5-325 Tablet] 1 each PO QID PRN 08/02/19 [ History] Magnesium Oxide [Magnesium] 500 mg PO DAILY 08/02/19 [History] Minocycline [Minocin] 50 mg PO BID 08/02/19 [History] Potassium Chloride [Klor-Con M20] 20 meq PO BID 08/02/19 [History] hydrOXYzine pamoate [Hydroxyzine Pamoate] 50 mg PO QID 08/02/19 [History] predniSONE [Prednisone] 15 mg PO DAILY 08/02/19 [History] Past Medical History HEENT 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 (See Below) Other HEENT History: presbyopia; hypermetropia Cardiovascular History: Reports: Hypertension Respiratory 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 (See Below) Other Respiratory History: sarcoidosis Gastrointestinal History: Reports: Chronic Constipation, Colon Polyp Genitourinary History: Reports: Pyelonephritis, Renal Calculus 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 (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 COMMUNICATIONS MANAGER History: 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 Musculoskeletal History: Reports: Arthritis, Fibromyalgia, Other (See Below) Other Musculoskeletal History: sciatica; arthralgia of both hands Psychiatric History: Reports: ADHD, Anxiety, Depression, Other (See Below) Other Psychiatric History: tobacco use Immunologic 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 (See Below) Other Immunologic History: sarcoidosis Dermatologic 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 (See Below) Other Dermatologic History: acne; nevus congenital - Past Surgical History Respiratory Surgical History: Reports: Lung Biopsies GI Surgical History: Reports: Colonoscopy, Other (See Below) Other GI Surgeries/Procedures: hemorrhoidectomy Female Surgical History: Reports: Lithotripsy/ESWL, Tubal Ligation, Other ( See Below) Other Female Surgeries/Procedures: cyrosurger; colposcopy; Musculoskeletal Surgical History: Reports: Carpal Tunnel ED ROS GENERAL - Review of Systems Review Of Systems: See Below Constitutional: Reports: No Symptoms HEENT: Reports: Eye Discharge, Eye Pain Respiratory: Reports: No Symptoms Cardiovascular: Reports: No Symptoms Endocrine: Reports: No Symptoms GI/Abdominal: Reports: No Symptoms : Reports: No Symptoms Musculoskeletal: Reports: No Symptoms Skin: Reports: No Symptoms Neurological: Reports: No Symptoms Psychiatric: Reports: No Symptoms Hematologic/Lymphatic: Reports: No Symptoms Immunologic: Reports: No Symptoms ED EXAM, GENERAL - Physical Exam Exam: See Below Exam Limited By: No Limitations General Appearance: Alert, WD/WN, No Apparent Distress Eye Exam: Left Eye: Conjunctival Injection, Corneal Abrasion, Vision Changes, Other (gross exam with magnification did not reveal any obvious foreign body to surface of eye or to underside of eyelid. EOMI. No globe injury noted. Florescein examination was performed under black light. No obvious foreign bodies noted. Significant conjuctival hyperemia noted to L eye.), Bilateral Eye : EOMI, PERRL Course - Vital Signs Last Recorded V/S: Last Vital Signs Temp 36.4 C 09/16/19 06:00 Pulse 88 09/16/19 06:00 Resp 16 09/16/19 06:00 BP 146/84 H 09/16/19 06:00 Pulse Ox - Orders/Labs/Meds Meds: Medications Discontinued Medications Generic Name Dose Route Start Last Admin Trade Name Christy PRN Reason Stop Dose Admin Diclofenac Sodium 1 packet 09/16/19 06:34 09/16/19 06:38 Take Home: Diclofenac 0.1% Ophth, 1 Bottle EYEBOTH 09/16/19 06:35 1 packet ONETIME ONE Administration Fluorescein Sodium 1 mg 09/16/19 06:17 09/16/19 06:28 Ful-Pia EYELF 09/16/19 06:18 1 mg ONETIME ONE Administration Gentamicin Sulfate 1 packet 09/16/19 06:33 09/16/19 06:38 Take Home: Gentamicin 0.3% Ophth Soln, 1 Rose EYELF 09/16/19 06:34 1 packet ONETIME ONE Administration Proparacaine HCl 1 ml 09/16/19 06:18 09/16/19 06:25 Proparacaine 0.5% Ophth Soln EYELF 09/16/19 06:19 3 drop ONETIME ONE Administration Departure - Departure Time of Disposition: 06:50 Disposition: Home, Self-Care 01 Clinical Impression: Corneal abrasion, left - Discharge Information Instructions: Corneal Abrasion, [id number], Gentamicin eye drops, Diclofenac eye solution Referrals: Kaleigh Hernandez DO [Primary Care Provider] - Forms: ED Department Discharge Additional Instructions: gentamycin eye drops 1 drop to L eye 5 times daily for 10 days Diclofenac eye drops 1 drop to L eye 4 times daily for 5 days Off work today. Minimize possibility to getting any other material in the eye. Use glasses. No contact use until it is well healed. Follow-up today at local eye clinic of choice for slit lamp examination. Sepsis Event Note - Evaluation Sepsis Screening Result: No Definite Risk - Focused Exam Vital Signs: Vital Signs Temp Pulse Resp BP 09/16/19 06:00 36.4 C 88 16 146/84 H Date Exam was Performed: 09/16/19 Time Exam was Performed: 06:42 - Assessment/Plan Plan: gentamycin eye drops 1 drop to L eye 5 times daily for 10 days Diclofenac eye drops 1 drop to L eye 4 times daily for 5 days Off work today. Minimize possibility to getting any other material in the eye. Use glasses. No contact use until it is well healed. Follow-up today at local eye clinic of choice for slit lamp examination.
== END 2019-09-16 06:46 | disposition home or self-care (01) ==
LOC: VM.ED 06:00
DX: S05.02XA Injury of conjunctiva and corneal abrasion without foreign body, left eye, initial encounter (principal); H11.432 Conjunctival hyperemia, left eye; I10 Essential (primary) hypertension; Z79.899 Other long term (current) drug therapy; Z88.8 Allergy status to other drugs, medicaments and biological substances; X58.XXXA Exposure to other specified factors, initial encounter
CPT/HCPCS: 99283; A9270-GY

== ENCOUNTER 2020-02-26 12:35 | Emergency (ER) | payer BC, OTHER ==
[2020-02-26] MEDS ORDERED: methylPREDNISolone Sodium Succinate 125 MG/2 ML SDV IVPUSH ONE (13:27)
[2020-02-26] MEDS ORDERED: Albuterol/Ipratropium 3.0-0.5 MG/3 ML Neb Soln NEB ONE (13:27)
--- NOTE | 2020-02-26 13:29 | EDM.PDOC ---
ED HPI GENERAL MEDICAL PROBLEM - General Chief Complaint: Respiratory Problem Stated Complaint: COUGH,CHILLS Time Seen by Provider: 02/26/20 13:15 Source of Information: Reports: Patient History Limitations: Reports: No Limitations - History of Present Illness INITIAL COMMENTS - FREE TEXT/NARRATIVE: Patient presented to ER with complaints of shortness of breath, cough and fatig ue. She denies any fever. No sore throat, sinus congestion or ear pain. States has a history of sarcoidosis, has recently weaned off prednisone and was doing well until a few days ago. States chest is tight, sore from coughing all the time. Has noted audible wheezing. Cough has been nonproductive. Onset: Gradual Duration: Day(s): Location: Reports: Chest Quality: Reports: Ache Severity: Moderate Improves with: Reports: Rest Worsens with: Reports: Other (cough) Associated Symptoms: Reports: Cough, Headaches, Malaise, Shortness of Breath. Denies: Confusion, Chest Pain, cough w sputum, Fever/Chills, Loss of Appetite, Nausea/Vomiting Chest Pain Score (Numeric/FACES): 7 - Related Data Allergies Allergy/AdvReac Type Severity Reaction Status Date / Time varenicline [From Chantix] Allergy Other Verified 02/26/20 14:14 Home Meds: Home Meds Albuterol Sulfate [Albuterol Sulfate Hfa] 2 inh Q6H PRN 05/30/19 [History] Citalopram Hydrobromide [Celexa] 40 mg DAILY 05/30/19 [History] hydroCHLOROthiazide [Hydrochlorothiazide] 25 mg DAILY 05/30/19 [History] Cyanocobalamin (Vitamin B-12) [B-12] 1,000 mcg PO DAILY 08/02/19 [History] Dextroamphetamine/Amphetamine [Adderall 20 mg Tablet] 10 - 20 mg PO TID 08/02/19 [History] Gabapentin [Neurontin] 300 mg PO BEDTIME 08/02/19 [History] Hydrocodone/Acetaminophen [[place] 5-325 Tablet] 1 each PO QID PRN 08/02/19 [History] Magnesium Oxide [Magnesium] 500 mg PO DAILY 08/02/19 [History] Minocycline [Minocin] 50 mg PO BID 08/02/19 [History] Potassium Chloride [Klor-Con M20] 20 meq PO BID 08/02/19 [History] hydrOXYzine pamoate [Hydroxyzine Pamoate] 50 mg PO QID 08/02/19 [History] predniSONE [Prednisone] 15 mg PO DAILY 08/02/19 [History] Past Medical History HEENT 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 (See Below) Other HEENT History: presbyopia; hypermetropia Cardiovascular History: Reports: Hypertension Respiratory 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 (See Below) Other Respiratory History: sarcoidosis Gastrointestinal History: Reports: Chronic Constipation, Colon Polyp Genitourinary History: Reports: Pyelonephritis, Renal Calculus 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: 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 Musculoskeletal History: Reports: Arthritis, Fibromyalgia, Other (See Below) Other Musculoskeletal History: sciatica; arthralgia of both hands Psychiatric History: Reports: ADHD, Anxiety, Depression, Other (See Below) Other Psychiatric History: tobacco use Immunologic 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 (See Below) Other Immunologic History: sarcoidosis Dermatologic 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 (See Below) Other Dermatologic History: acne; nevus congenital - Past Surgical History Respiratory Surgical History: Reports: Lung Biopsies GI Surgical History: Reports: Colonoscopy, Other (See Below) Other GI Surgeries/Procedures: hemorrhoidectomy Female Surgical History: Reports: Lithotripsy/ESWL, Tubal Ligation, Other (See Below) Other Female Surgeries/Procedures: cyrosurger; colposcopy; Musculoskeletal Surgical History: Reports: Carpal Tunnel Social & Family History - Tobacco Use Smoking Status *Q: Unknown Ever Smoked ED ROS GENERAL - Review of Systems Review Of Systems: See Below Constitutional: Reports: Malaise, Fatigue. Denies: Fever, Chills, Weakness, Decreased Appetite HEENT: Denies: Ear Pain, Rhinitis, Sinus Problem, Throat Pain Respiratory: Reports: Shortness of Breath, Wheezing, Pleuritic Chest Pain, Cough Cardiovascular: Denies: Chest Pain, Edema, Lightheadedness Endocrine: Denies: Fatigue GI/Abdominal: Denies: Abdominal Pain, Constipation, Diarrhea, Nausea, Vomiting : Reports: No Symptoms Musculoskeletal: Reports: No Symptoms Skin: Reports: No Symptoms Neurological: Reports: No Symptoms Psychiatric: Reports: No Symptoms ED EXAM, GENERAL - Physical Exam Exam: See Below Exam Limited By: No Limitations General Appearance: Alert, WD/WN, Mild Distress Ears: Normal External Exam, Normal TMs Nose: Normal Inspection Throat/Mouth: Normal Inspection, Normal Oropharynx Head: Normocephalic Neck: Normal Inspection, Supple, Non-Tender Respiratory/Chest: Decreased Breath Sounds, Wheezing Cardiovascular: Regular Rate, Rhythm GI/Abdominal: Normal Bowel Sounds, Soft, Non-Tender Extremities: Normal Inspection, No Pedal Edema Neurological: Alert, Oriented Skin Exam: Warm, Dry Course - Orders/Labs/Meds Orders: Active Orders 24 hr Category Date Time Status RT Aerosol Therapy [RC] ASDIRECTED Care 02/26/20 13:27 Active Labs: Laboratory Tests 02/26/20 02/26/20 02/26/20 Range/Units 12:50 13:52 13:52 WBC 8.1 (4.0-10.0) x10^3/uL RBC 4.75 (4.00-5.50) x10^6/uL Hgb 15.4 D (12.0-16.0) g/dL Hct 44.5 (33.0-47.0) % MCV 93.7 H (78.0-93.0) fL MCH 32.4 H (26.0-32.0) pg MCHC 34.6 (32.0-36.0) g/dL RDW Coeff of Jen 12.6 (10.0-15.0) % Plt Count 330 (130-400) x10^3/uL Neut % (Auto) 58.9 (50.0-80.0) % Lymph % (Auto) 24.1 L (25.0-50.0) % [place] % (Auto) 8.3 (2.0-11.0) % Eos % (Auto) 8.3 H (0.0-4.0) % Baso % (Auto) 0.4 (0.2-1.2) % D-Dimer, Quantitative 0.41 (<=0.58) mg/LFEU Sodium (136-145) mmol/L Potassium (3.5-5.1) mmol/L Chloride (98-107) mmol/L Carbon Dioxide (21-32) mmol/L Anion Gap (10-20) mmol/L BUN (7-18) mg/dL Creatinine (0.55-1.02) mg/dL Est Cr Clr Drug Dosing mL/min Estimated GFR (MDRD) Glucose (74-106) mg/dL Calcium (8.5-10.1) mg/dL Corrected Calcium (8.5-10.1) mg/dL Total Bilirubin (0.2-1.0) mg/dL AST (15-37) U/L ALT (14-59) U/L Alkaline Phosphatase (46-116) U/L C-Reactive Protein (<=0.9) mg/dL Total Protein (6.4-8.2) g/dL Albumin (3.4-5.0) g/dL Globulin Albumin/Globulin Ratio SARS-CoV-2 RNA (RT-PCR) Negative (NEGATIVE) 02/26/20 Range/Units 13:52 WBC (4.0-10.0) x10^3/uL RBC (4.00-5.50) x10^6/uL Hgb (12.0-16.0) g/dL Hct (33.0-47.0) % MCV (78.0-93.0) fL MCH (26.0-32.0) pg MCHC (32.0-36.0) g/dL RDW Coeff of Jen (10.0-15.0) % Plt Count (130-400) x10^3/uL Neut % (Auto) (50.0-80.0) % Lymph % (Auto) (25.0-50.0) % [place] % (Auto) (2.0-11.0) % Eos % (Auto) (0.0-4.0) % Baso % (Auto) (0.2-1.2) % D-Dimer, Quantitative (<=0.58) mg/LFEU Sodium 141 (136-145) mmol/L Potassium 2.7 L* (3.5-5.1) mmol/L Chloride 102 (98-107) mmol/L Carbon Dioxide 31 (21-32) mmol/L Anion Gap 10.7 (10-20) mmol/L BUN 15 (7-18) mg/dL Creatinine 0.9 (0.55-1.02) mg/dL Est Cr Clr Drug Dosing 62.55 mL/min Estimated GFR (MDRD) > 60 Glucose 111 H (74-106) mg/dL Calcium 8.9 (8.5-10.1) mg/dL Corrected Calcium 9.46 (8.5-10.1) mg/dL Total Bilirubin 0.3 (0.2-1.0) mg/dL AST 17 (15-37) U/L ALT 17 (14-59) U/L Alkaline Phosphatase 114 (46-116) U/L C-Reactive Protein 1.6 H (<=0.9) mg/dL Total Protein 7.0 (6.4-8.2) g/dL Albumin 3.3 L (3.4-5.0) g/dL Globulin 3.7 Albumin/Globulin Ratio 0.89 SARS-CoV-2 RNA (RT-PCR) (NEGATIVE) Meds: Medications Discontinued Medications Generic Name Dose Route Start Last Admin Trade Name Freq PRN Reason Stop Dose Admin Albuterol/Ipratropium 3 ml 02/26/20 13:27 02/26/20 14:06 Duoneb 3.0-0.5 Mg/3 Ml NEB 02/26/20 13:28 3 ml ONETIME ONE Administration Methylprednisolone Sodium Succinate 125 mg 02/26/20 13:27 02/26/20 14:07 Solu-Medrol IVPUSH 02/26/20 13:28 125 mg ONETIME ONE Administration - Re-Assessments/Exams Free Text/Narrative Re-Assessment/Exam: 02/26/20 1315 COVID testing negative 02/26/20 14:27 Lab results reviewed. WBC stable. CRP mildly elevated. Potassium is low at 2.7 but admits she hasn't been taking her meds. Will start a tapering dose of prednisone. Discussed nebulizers at home, states has not been able to use as cannot afford the nebs. Will need to resume her oral potassium as prescribed, does have at home. Departure - Departure Time of Disposition: 14:31 Disposition: Home, Self-Care 01 Condition: Fair Clinical Impression: Acute bronchiolitis - Discharge Information *PRESCRIPTION DRUG MONITORING PROGRAM REVIEWED*: No *COPY OF PRESCRIPTION DRUG MONITORING REPORT IN PATIENT GENO: No Instructions: Acute Bronchitis, Adult, [id number] Forms: ED Department Discharge Additional Instructions: 1. Push fluids 2. Rest 3. Start tapering dose of prednisone tomorrow 4. Consider obtaining nebulizer machine as would benefit for chronic lung concerns/wheezing 5. Resume taking oral potassium as prescribed 6. Follow up with Dr. Hernandez on Friday for recheck. Will also need follow up labs. - My Orders Last 24 Hours: My Active Orders 02/26/20 13:27 RT Aerosol Therapy [RC] ASDIRECTED - Assessment/Plan Last 24 Hours: My Active Orders 02/26/20 13:27 RT Aerosol Therapy [RC] ASDIRECTED
--- NOTE | 2020-02-26 13:45 | CR ---
[id number] RAD/RAD Chest PA And Lateral EXAM: RAD Chest PA And Lateral CLINICAL DATA: COUGH COMPARISON: CORRELATION IS MADE WITH 2018 FINDINGS: The lungs are clear. The cardiomediastinal contour is normal. There is an old fracture of the right sixth rib. The regional bones and soft tissues are unremarkable. IMPRESSION: NO ACUTE PROCESS. Marco Scanlon MD 02/26/20 [id number] Thank you for allowing us to participate in the care of your patient.
[2020-02-26 14:17] LABS: CHLORIDE,CL 102 mmol/L (98-107); SODIUM,NA 141 mmol/L (136-145)
[2020-02-26 14:19] LABS: ANION GAP 10.7 mmol/L (10-20)
[2020-02-26] MEDS ORDERED: Take Home: predniSONE 20 MG, 2 Tab Pack PO ONE (14:36)
[2020-02-26 15:22] VITALS: BP 118/72; PULSE 64
[2020-02-26] MEDS ORDERED: Ketorolac 60 MG/2 ML SDV IM ONE (15:22)
[2020-02-26] MEDS ORDERED: Dexamethasone/Tobramycin 0.1-0.3% Ophth Susp 2.5 ML Bottle EYERT SCH (15:30)
== END 2020-02-26 14:52 | disposition home or self-care (01) ==
LOC: VM.ED 12:35
DX: J21.9 Acute bronchiolitis, unspecified (principal); I10 Essential (primary) hypertension; F41.9 Anxiety disorder, unspecified; F32.9 Major depressive disorder, single episode, unspecified; Z20.828 Contact with and (suspected) exposure to other viral communicable diseases; Z72.0 Tobacco use; Z79.899 Other long term (current) drug therapy; Z88.8 Allergy status to other drugs, medicaments and biological substances
CPT/HCPCS: 36415; 71046; 80053; 85025; 85379; 86140; 87635; 94640; 96374; 99285; J2930; J7512; J7620-GY; U0002

== ENCOUNTER 2020-10-07 02:30 | Emergency (ER) | payer BC ==
[2020-10-07] MEDS ORDERED: Lactated Ringers 1,000 ML IV ONE (02:41)
[2020-10-07] MEDS ORDERED: Ondansetron 4 MG/2 ML SDV IVPUSH ONE (02:41)
[2020-10-07] MEDS ORDERED: Ketorolac 30 MG/ML SDV IVPUSH ONE (02:41)
[2020-10-07] MEDS ORDERED: Sodium Chloride 0.9% 10 ML Syringe FLUSH PRN (02:41)
[2020-10-07] MEDS ORDERED: fentaNYL 100 MCG/2 ML SDV IVPUSH ONE (02:56)
--- NOTE | 2020-10-07 03:04 | EDM.PDOC ---
ED HPI GENERAL MEDICAL PROBLEM - General Chief Complaint: Back Pain or Injury Stated Complaint: Right mid thoracic back pain Time Seen by Provider: 10/07/20 02:40 Source of Information: Reports: Patient - History of Present Illness INITIAL COMMENTS - FREE TEXT/NARRATIVE: Rita is a 50 y/o female who comes to the ER with complaints of RUQ abdominal pain and right sided flank pain that started coming on through the week, but got much worse tonight. She has had a history of multiple kidney stones and has even had lithotripsy 4 times. She reports it has been quite a while since she has had a kidney stone. No fever. No dysuria. Right thoracic back/flank Pain Score (Numeric/FACES): 4 - Related Data Allergies Allergy/AdvReac Type Severity Reaction Status Date / Time varenicline [From Chantix] Allergy Other Verified 10/07/20 04:51 Home Meds: Home Meds Albuterol Sulfate [Albuterol Sulfate Hfa] 2 inh Q6H PRN 05/30/19 [History] Citalopram Hydrobromide [Celexa] 40 mg DAILY 05/30/19 [History] hydroCHLOROthiazide [Hydrochlorothiazide] 25 mg DAILY 05/30/19 [History] Cyanocobalamin (Vitamin B-12) [B-12] 1,000 mcg PO DAILY 08/02/19 [History] Dextroamphetamine/Amphetamine [Adderall 20 mg Tablet] 10 - 20 mg PO TID 08/02/19 [History] Gabapentin [Neurontin] 300 mg PO BEDTIME 08/02/19 [History] Hydrocodone/Acetaminophen [[place] 5-325 Tablet] 1 each PO QID PRN 08/02/19 [History] Magnesium Oxide [Magnesium] 500 mg PO DAILY 08/02/19 [History] Minocycline [Minocin] 50 mg PO BID 08/02/19 [History] Potassium Chloride [Klor-Con M20] 20 meq PO BID 08/02/19 [History] hydrOXYzine pamoate [Hydroxyzine Pamoate] 50 mg PO QID 08/02/19 [History] predniSONE [Prednisone] 15 mg PO DAILY 08/02/19 [History] Cyclobenzaprine [Flexeril] 10 mg PO TID PRN #30 tab 10/07/20 [Rx] Past Medical History HEENT 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 (See Below) Other HEENT History: presbyopia; hypermetropia Cardiovascular History: Reports: Hypertension Respiratory 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 (See Below) Other Respiratory History: sarcoidosis Gastrointestinal History: Reports: Chronic Constipation, Colon Polyp Genitourinary History: Reports: Pyelonephritis, Renal Calculus 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 (See Below) Other SPEECH THERAPY TEACHER History: 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 Musculoskeletal History: Reports: Arthritis, Fibromyalgia, Other (See Below) Other Musculoskeletal History: sciatica; arthralgia of both hands Psychiatric History: Reports: ADHD, Anxiety, Depression, Other (See Below) Other Psychiatric History: tobacco use Immunologic 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 (See Below) Other Immunologic History: sarcoidosis Dermatologic 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 (See Below) Other Dermatologic History: acne; nevus congenital - Past Surgical History Respiratory Surgical History: Reports: Lung Biopsies GI Surgical History: Reports: Colonoscopy, Other (See Below) Other GI Surgeries/Procedures: hemorrhoidectomy Female Surgical History: Reports: Lithotripsy/ESWL, Tubal Ligation, Other (See Below) Other Female Surgeries/Procedures: cyrosurger; colposcopy; Musculoskeletal Surgical History: Reports: Carpal Tunnel Review of Systems - Review of Systems Review Of Systems: See Below Constitutional: Reports: No Symptoms Eyes: Reports: No Symptoms Ears: Reports: No Symptoms Nose: Reports: No Symptoms Mouth/Throat: Reports: No Symptoms Respiratory: Reports: No Symptoms Cardiovascular: Reports: No Symptoms GI/Abdominal: Reports: Abdominal Pain (RUQ) Genitourinary: Reports: No Symptoms Musculoskeletal: Reports: Back Pain (Right Flank Pain) Skin: Reports: No Symptoms Neurological: Reports: No Symptoms Psychiatric: Reports: No Symptoms ED EXAM, GENERAL - Physical Exam Exam: See Below General Appearance: Alert, WD/WN, Moderate Distress (Adult female, holding her right flank region and having a hard time moving.) Ears: Hearing Grossly Normal Throat/Mouth: Normal Inspection, Normal Lips, Normal Voice Head: Atraumatic, Normocephalic Respiratory/Chest: No Respiratory Distress, Lungs Clear, Chest Non-Tender Cardiovascular: Normal Peripheral Pulses, Regular Rate, Rhythm GI/Abdominal: Normal Bowel Sounds, Soft, No Organomegaly, Tender (RUQ) (Female) Exam: Deferred Rectal (Female) Exam: Deferred Back Exam: CVA Tenderness (R) Extremities: Normal Inspection, Normal Range of Motion, Normal Capillary Refill Neurological: Alert, Oriented, CN II-XII Intact Psychiatric: Anxious Skin Exam: Warm, Dry, Intact, Normal Color Lymphatic: No Adenopathy Course - Vital Signs Text/Narrative:: 0240 The patient was seen by the MANAGER FIXED INCOME. Labs ordered. She was given a liter of LR, Toradol 30mg IVP, Fentanyl 100mcg IVP, and Zofran 4mg IVP. 0350 Labs reviewed. Note WBC=14.9, Uuarwrq=913, UA=pos occult blood. Right flank pain persisting, rates pain 9/10, Dilaudid 1mg IVP ordered. Will get CT to exclude renal calculi. 0530 CT results reviewed. Bilateral nonobstructing nephrolithiasis noted. Left Interpol Kidney, possibly a cyst. Patient still having right flank pain, but higher that before. Right posterior thoracic region tender with exam now and =muscle spasms palpated. Diazepam 10mg po given. Will treat for musculoskeletal pain. Patient given discharge instructions and left the ER in stable condition. Last Recorded V/S: Last Vital Signs Temp 36.8 C 10/07/20 02:30 Pulse 68 10/07/20 05:21 Resp 16 10/07/20 05:21 BP 118/71 10/07/20 05:21 Pulse Ox 95 10/07/20 05:21 - Orders/Labs/Meds Orders: Active Orders 24 hr Category Date Time Status Abdomen Pelvis wo Cont [CT] Stat Exams 10/07/20 03:52 Taken Sodium Chloride 0.9% [Saline Flush] Med 10/07/20 02:41 Active 10 ml FLUSH ASDIRECTED PRN diazePAM [Valium.] Med 10/07/20 05:32 Once 10 mg PO ONETIME ONE Saline Lock Insert [OM.PC] Stat Oth 10/07/20 02:40 Ordered Medication Orders Sodium Chloride (Saline Flush) 10 ml FLUSH ASDIRECTED PRN PRN Reason: Keep Vein Open Labs: Laboratory Tests 10/07/20 10/07/20 10/07/20 Range/Units 02:54 02:54 02:54 WBC 14.9 H (4.0-10.0) x10^3/uL RBC 4.79 (4.00-5.50) x10^6/uL Hgb 15.6 (12.0-16.0) g/dL Hct 46.5 (33.0-47.0) % MCV 97.1 H D (78.0-93.0) fL MCH 32.6 H (26.0-32.0) pg MCHC 33.5 (32.0-36.0) g/dL RDW Coeff of Jen 14.1 (10.0-15.0) % Plt Count 359 (130-400) x10^3/uL Add Manual Diff Yes Neutrophils % (Manual) 54 (50-80) % Lymphocytes % (Manual) 22 L (25-50) % Reactive Lymphs % 9 H (0) % Monocytes % (Manual) 10 (2-11) % Eosinophils % (Manual) 5 H (0-4) % Vacuolated Monocytes 1+ slight H Toxic Granulation Rare Platelet Estimate Adequate Polychromasia Rare Macrocytosis 1+ slight H Target Cells Rare Sodium 139 (136-145) mmol/L Potassium 4.0 (3.5-5.1) mmol/L Chloride 101 (98-107) mmol/L Carbon Dioxide 27 (21-32) mmol/L Anion Gap 15.0 (5-15) mmol/L BUN 10 (7-18) mg/dL Creatinine 0.7 (0.55-1.02) mg/dL Est Cr Clr Drug Dosing TNP Estimated GFR (MDRD) > 60 Glucose 113 H (74-106) mg/dL Lactic Acid 1.4 (0.4-2.0) mmol/L Calcium 9.2 (8.5-10.1) mg/dL Corrected Calcium 9.68 (8.5-10.1) mg/dL Total Bilirubin 0.4 (0.2-1.0) mg/dL AST 15 (15-37) U/L ALT 21 (14-59) U/L Alkaline Phosphatase 96 (46-116) U/L Total Protein 7.2 (6.4-8.2) g/dL Albumin 3.4 (3.4-5.0) g/dL Globulin 3.8 Albumin/Globulin Ratio 0.89 Urine Color (YELLOW) Urine Appearance (CLEAR) Urine pH (5.0-8.0) Ur Specific [place] Urine Protein (NEGATIVE) mg/dL Urine Glucose (UA) (NEGATIVE) mg/dL Urine Ketones (NEGATIVE) mg/dL Urine Occult Blood (NEGATIVE) Urine Nitrite (NEGATIVE) Urine Bilirubin (NEGATIVE) Urine Urobilinogen (0.2) EU/dL Ur Leukocyte Esterase (NEGATIVE) U Hyaline Cast (Auto) Urine RBC (NOT SEEN) /HPF Urine WBC (NOT SEEN) /HPF Ur Squamous Epith Cells (NEGATIVE) /HPF Urine Bacteria (NEGATIVE) /HPF Urine Mucus (NEGATIVE) /LPF Urine Opiates Screen (NEGATIVE) Ur Buprenorphine Scrn (NEGATIVE) Ur Oxycodone Screen (NEGATIVE) Ur EDDP (Meth Metab) (NEGATIVE) Urine Methadone Screen (NEGATIVE) Ur Barbituates Screen (NEGATIVE) Ur Tricyclics Screen (NEGATIVE) Ur Phencyclidine Scrn (NEGATIVE) Ur Amphetamines Screen (NEGATIVE) U Methamphetamines Scrn (NEGATIVE) Urine MDMA Screen (NEGATIVE) U Benzodiazepines Scrn (NEGATIVE) Urine Cocaine Screen (NEGATIVE) U Marijuana (THC) Screen (NEGATIVE) 10/07/20 10/07/20 Range/Units 03:35 03:35 WBC (4.0-10.0) x10^3/uL RBC (4.00-5.50) x10^6/uL Hgb (12.0-16.0) g/dL Hct (33.0-47.0) % MCV (78.0-93.0) fL MCH (26.0-32.0) pg MCHC (32.0-36.0) g/dL RDW Coeff of Jen (10.0-15.0) % Plt Count (130-400) x10^3/uL Add Manual Diff Neutrophils % (Manual) (50-80) % Lymphocytes % (Manual) (25-50) % Reactive Lymphs % (0) % Monocytes % (Manual) (2-11) % Eosinophils % (Manual) (0-4) % Vacuolated Monocytes Toxic Granulation Platelet Estimate Polychromasia Macrocytosis Target Cells Sodium (136-145) mmol/L Potassium (3.5-5.1) mmol/L Chloride (98-107) mmol/L Carbon Dioxide (21-32) mmol/L Anion Gap (5-15) mmol/L BUN (7-18) mg/dL Creatinine (0.55-1.02) mg/dL Est Cr Clr Drug Dosing Estimated GFR (MDRD) Glucose (74-106) mg/dL Lactic Acid (0.4-2.0) mmol/L Calcium (8.5-10.1) mg/dL Corrected Calcium (8.5-10.1) mg/dL Total Bilirubin (0.2-1.0) mg/dL AST (15-37) U/L ALT (14-59) U/L Alkaline Phosphatase (46-116) U/L Total Protein (6.4-8.2) g/dL Albumin (3.4-5.0) g/dL Globulin Albumin/Globulin Ratio Urine Color Yellow (YELLOW) Urine Appearance Clear (CLEAR) Urine pH 6.0 (5.0-8.0) Ur Specific [place] 1.025 Urine Protein Negative (NEGATIVE) mg/dL Urine Glucose (UA) Negative (NEGATIVE) mg/dL Urine Ketones Negative (NEGATIVE) mg/dL Urine Occult Blood Moderate H (NEGATIVE) Urine Nitrite Negative (NEGATIVE) Urine Bilirubin Negative (NEGATIVE) Urine Urobilinogen 1.0 (0.2) EU/dL Ur Leukocyte Esterase Negative (NEGATIVE) U Hyaline Cast (Auto) Few Urine RBC 0-5 (NOT SEEN) /HPF Urine WBC 0-5 (NOT SEEN) /HPF Ur Squamous Epith Cells Many H (NEGATIVE) /HPF Urine Bacteria Not seen (NEGATIVE) /HPF Urine Mucus Moderate H (NEGATIVE) /LPF Urine Opiates Screen Negative (NEGATIVE) Ur Buprenorphine Scrn Negative (NEGATIVE) Ur Oxycodone Screen Negative (NEGATIVE) Ur EDDP (Meth Metab) Negative (NEGATIVE) Urine Methadone Screen Positive H (NEGATIVE) Ur Barbituates Screen Negative (NEGATIVE) Ur Tricyclics Screen Negative (NEGATIVE) Ur Phencyclidine Scrn Negative (NEGATIVE) Ur Amphetamines Screen Positive H (NEGATIVE) U Methamphetamines Scrn Positive H (NEGATIVE) Urine MDMA Screen Negative (NEGATIVE) U Benzodiazepines Scrn Negative (NEGATIVE) Urine Cocaine Screen Negative (NEGATIVE) U Marijuana (THC) Screen Negative (NEGATIVE) Meds: Medications Generic Name Dose Route Start Last Admin Trade Name Freq PRN Reason Stop Dose Admin Sodium Chloride 10 ml 10/07/20 02:41 Saline Flush FLUSH ASDIRECTED PRN Keep Vein Open Discontinued Medications Generic Name Dose Route Start Last Admin Trade Name Freq PRN Reason Stop Dose Admin Fentanyl 100 mcg 10/07/20 02:56 10/07/20 03:05 Sublimaze IVPUSH 10/07/20 02:57 100 mcg ONETIME ONE Administration Hydromorphone HCl 1 mg 10/07/20 03:52 10/07/20 04:05 Dilaudid IVPUSH 10/07/20 03:53 1 mg ONETIME ONE Administration Lactated Ringer's 1,000 mls @ 999 mls/hr 10/07/20 02:41 10/07/20 03:00 Ringers, Lactated IV 10/07/20 03:41 999 mls/hr ONETIME ONE Administration Ketorolac Tromethamine 30 mg 10/07/20 02:41 10/07/20 03:02 Toradol IVPUSH 10/07/20 02:42 30 mg ONETIME ONE Administration Ondansetron HCl 4 mg 10/07/20 02:41 10/07/20 03:00 Zofran IVPUSH 10/07/20 02:42 4 mg ONETIME ONE Administration Departure - Departure Time of Disposition: 05:36 Disposition: Home, Self-Care 01 Clinical Impression: Musculoskeletal pain - Discharge Information *PRESCRIPTION DRUG MONITORING PROGRAM REVIEWED*: No *COPY OF PRESCRIPTION DRUG MONITORING REPORT IN PATIENT GENO: No Prescriptions: Cyclobenzaprine [Flexeril] 10 mg PO TID PRN #30 tab PRN Reason: Muscle Spasm Instructions: Musculoskeletal Pain Forms: ED Department Discharge Additional Instructions: -Ibuprofen 600mg orally every hours x 5-7 days then every 8 hours as needed -Cyclobenzaprine 10 mg orally every 8 hours as needed for muscle spasms #15 (Rx) -Ice or heat applied to the area as needed -Rest, Increase activity as able - Return to see your PCP to arrange further diagnostic testing if the pain persists -Follow up in ER if pain worse or any other concerns Sepsis Event Note (ED) - Focused Exam Vital Signs: Vital Signs Temp Pulse Resp BP Pulse Ox 10/07/20 05:21 68 16 118/71 95 10/07/20 02:30 36.8 C 80 20 152/101 H 97 - My Orders Last 24 Hours: My Active Orders 10/07/20 02:40 Saline Lock Insert [OM.PC] Stat 10/07/20 02:41 Sodium Chloride 0.9% [Saline Flush] 10 ml FLUSH ASDIRECTED PRN 10/07/20 03:52 Abdomen Pelvis wo Cont [CT] Stat 10/07/20 05:32 diazePAM [Valium.] 10 mg PO ONETIME ONE - Assessment/Plan Last 24 Hours: My Active Orders 10/07/20 02:40 Saline Lock Insert [OM.PC] Stat 10/07/20 02:41 Sodium Chloride 0.9% [Saline Flush] 10 ml FLUSH ASDIRECTED PRN 10/07/20 03:52 Abdomen Pelvis wo Cont [CT] Stat 10/07/20 05:32 diazePAM [Valium.] 10 mg PO ONETIME ONE
[2020-10-07 03:22] LABS: SODIUM,NA 139 mmol/L (136-145)
[2020-10-07 03:31] LABS: CHLORIDE,CL 101 mmol/L (98-107)
[2020-10-07 03:51] LABS: BUPRENORPHINE,URINE NEGATIVE (NEGATIVE); MARIJUANA,URINE NEGATIVE (NEGATIVE); METHYLENEDIOXYMETHAMP,UR NEGATIVE (NEGATIVE); PHENCYCLIDINE,URINE NEGATIVE (NEGATIVE)
[2020-10-07] MEDS ORDERED: HYDROmorphone 1 MG/ML Syringe IVPUSH ONE (03:52)
[2020-10-07 05:23] VITALS: BP 118/71; PULSE 68
[2020-10-07] MEDS ORDERED: Diazepam 5 MG Tab PO ONE (05:32)
--- NOTE | 2020-10-09 09:56 | CT ---
[id number] CT/CT Abdomen Pelvis WO IV Exam: CT Abdomen Pelvis WO IV Clinical Data: ABDOMINAL PAIN COMPARISON: CORRELATION IS MADE WITH DECEMBER 25, 2016 FINDINGS: There are small bilateral renal calculi. There are also small renal cysts, some which are indeterminate without IV contrast There is no hydronephrosis There is no radiopaque ureteral calculus The liver and spleen, adrenals, aorta, and pancreas otherwise are unremarkable The gallbladder is not distended The pelvis shows no mass or adenopathy The appendix is normal The appendix is best identified on image 85, series 2 IMPRESSION: NO ACUTE PROCESS SMALL BILATERAL RENAL CALCULI Marco Scanlon MD 10/09/20 0955 Thank you for allowing us to participate in the care of your patient.
== END 2020-10-07 06:00 | disposition home or self-care (01) ==
LOC: VM.ED 02:30
DX: M54.6 Pain in thoracic spine (principal); R10.11 Right upper quadrant pain; I10 Essential (primary) hypertension; Z72.0 Tobacco use; Z88.8 Allergy status to other drugs, medicaments and biological substances; Z79.899 Other long term (current) drug therapy
CPT/HCPCS: 74176; 80053; 80305-QW; 81001; 83605; 85025; 96374; 96375; 99284; 99284-25; A9270-GY; J1170; J1885; J2405; J3010; J7120

== ENCOUNTER 2020-10-07 10:28 | Emergency (ER) | payer BC ==
[2020-10-07] MEDS ORDERED: HYDROmorphone 1 MG/ML Syringe IM ONE (10:37)
[2020-10-07] MEDS ORDERED: Diazepam 5 MG Tab PO ONE (10:37)
[2020-10-07 10:41] VITALS: BP 157/98; PULSE 72
[2020-10-07] MEDS ORDERED: Ketorolac 30 MG/ML SDV IM ONE (11:02)
--- NOTE | 2020-10-07 12:01 | EDM.PDOC ---
ED HPI GENERAL MEDICAL PROBLEM - General Chief Complaint: Back Pain or Injury Stated Complaint: BACK PAIN Time Seen by Provider: 10/07/20 10:32 Source of Information: Reports: Patient - History of Present Illness INITIAL COMMENTS - FREE TEXT/NARRATIVE: Rita is a 50 y/o female who returns to the ER with right mid-thoracic back pain. She was seen in the ER last night for the same pain and labs anc CT were done. Obstructing Renal Calculi were excluded and her labs were negative. She was sent home and advised to fill her prescription for Flexeril which she has not yet done. She also is supposed to increase her Prednisone for the next 5 days as advised by her Dr Kaleigh Hernandez, but she has not yet filled that either. She has not taken any of her morning meds. NO new injury, but reports that pain is persisting. She has not tried any ibuprofen or acetaminophen as advised. Right Middle Back Pain Score (Numeric/FACES): 10 - Related Data Allergies Allergy/AdvReac Type Severity Reaction Status Date / Time varenicline [From Chantix] Allergy Other Verified 10/07/20 11:04 Home Meds: Home Meds Albuterol Sulfate [Albuterol Sulfate Hfa] 2 inh Q6H PRN 05/30/19 [History] Citalopram Hydrobromide [Celexa] 40 mg DAILY 05/30/19 [History] hydroCHLOROthiazide [Hydrochlorothiazide] 25 mg DAILY 05/30/19 [History] Cyanocobalamin (Vitamin B-12) [B-12] 1,000 mcg PO DAILY 08/02/19 [History] Dextroamphetamine/Amphetamine [Adderall 20 mg Tablet] 10 - 20 mg PO TID 08/02/19 [History] Gabapentin [Neurontin] 300 mg PO BEDTIME 08/02/19 [History] Hydrocodone/Acetaminophen [[place] 5-325 Tablet] 1 each PO QID PRN 08/02/19 [History] Magnesium Oxide [Magnesium] 500 mg PO DAILY 08/02/19 [History] Minocycline [Minocin] 50 mg PO BID 08/02/19 [History] Potassium Chloride [Klor-Con M20] 20 meq PO BID 08/02/19 [History] hydrOXYzine pamoate [Hydroxyzine Pamoate] 50 mg PO QID 08/02/19 [History] predniSONE [Prednisone] 15 mg PO DAILY 08/02/19 [History] Cyclobenzaprine [Flexeril] 10 mg PO TID PRN #30 tab 10/07/20 [Rx] Past Medical History HEENT 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 (See Below) Other HEENT History: presbyopia; hypermetropia Cardiovascular History: Reports: Hypertension Respiratory 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 (See Below) Other Respiratory History: sarcoidosis Gastrointestinal History: Reports: Chronic Constipation, Colon Polyp Genitourinary History: Reports: Pyelonephritis, Renal Calculus 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: 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 Musculoskeletal History: Reports: Arthritis, Fibromyalgia, Other (See Below) Other Musculoskeletal History: sciatica; arthralgia of both hands Psychiatric History: Reports: ADHD, Anxiety, Depression, Other (See Below) Other Psychiatric History: tobacco use Immunologic 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 (See Below) Other Immunologic History: sarcoidosis Dermatologic 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 (See Below) Other Dermatologic History: acne; nevus congenital - Past Surgical History Respiratory Surgical History: Reports: Lung Biopsies GI Surgical History: Reports: Colonoscopy, Other (See Below) Other GI Surgeries/Procedures: hemorrhoidectomy Female Surgical History: Reports: Lithotripsy/ESWL, Tubal Ligation, Other (See Below) Other Female Surgeries/Procedures: cyrosurger; colposcopy; Musculoskeletal Surgical History: Reports: Carpal Tunnel Social & Family History - Tobacco Use Tobacco Use Status *Q: Current Every Day Tobacco User Years of Tobacco use: 30 Packs/Tins Daily: 1 Review of Systems - Review of Systems Review Of Systems: See Below Constitutional: Reports: No Symptoms Eyes: Reports: No Symptoms Ears: Reports: No Symptoms Nose: Reports: No Symptoms Mouth/Throat: Reports: No Symptoms Respiratory: Reports: No Symptoms Cardiovascular: Reports: No Symptoms GI/Abdominal: Reports: No Symptoms Genitourinary: Reports: No Symptoms Musculoskeletal: Reports: Back Pain, Muscle Pain Skin: Reports: No Symptoms Neurological: Reports: No Symptoms Psychiatric: Reports: No Symptoms ED EXAM, GENERAL - Physical Exam Exam: See Below General Appearance: Alert, WD/WN, Other (Adult female, obsviously in pain and moaning and changing position frequently for comfort.) Ears: Hearing Grossly Normal Nose: Normal Inspection Throat/Mouth: Normal Inspection, Normal Lips, Normal Voice Head: Atraumatic, Normocephalic Respiratory/Chest: No Respiratory Distress, Lungs Clear Cardiovascular: Normal Peripheral Pulses, Regular Rate, Rhythm GI/Abdominal: Normal Bowel Sounds, Soft (Female) Exam: Deferred Rectal (Female) Exam: Deferred Back Exam: Muscle Spasm (Posterior Right Thoracic region a tight muscle is palpated) Extremities: Normal Inspection, Normal Range of Motion, Normal Capillary Refill Neurological: Alert, Oriented, CN II-XII Intact, No Motor/Sensory Deficits Psychiatric: Anxious Skin Exam: Warm, Dry, Intact Course - Vital Signs Text/Narrative:: 1032 The patient was seen by the LINEN KEEPER. She was given Dilaudid 1mg IM and Valium 10mg po for the pain. 1115 Pain only slightly better now, rates 7/10. Toradol 60mg IM given. 1200 Still moaning, but states pain is better. Discussed importance of taking muscle relaxers and OTC pain meds, including ibuprofen and acetaminophen. Also discussed course of prednisone. She was advised yesterday by Dr Kaleigh Hernandez to increase her Prednisone to 30mg qd x 5 days then return to 15mg qd. Patient reports that she had not taken her AM meds and had not yet gotten her muscle relaxers filled at the pharmacy. Patient was advised that she needs to picker tender helper her prescriptions and take meds as instructed. We reviewed her CT and labs that were done on her previous ER visit a few hours earlier. LINEN KEEPER advised her to go home with meds and rest. She was given written instructions and left the ER in stable condition. Last Recorded V/S: Last Vital Signs Temp 36.5 C 10/07/20 10:28 Pulse 72 10/07/20 10:28 Resp 20 10/07/20 10:28 BP 157/98 H 10/07/20 10:28 Pulse Ox 100 10/07/20 10:28 - Orders/Labs/Meds Meds: Medications Discontinued Medications Generic Name Dose Route Start Last Admin Trade Name Christy PRN Reason Stop Dose Admin Diazepam 10 mg 10/07/20 10:37 10/07/20 10:45 Valium. PO 10/07/20 10:38 10 mg ONETIME ONE Administration Hydromorphone HCl 1 mg 10/07/20 10:37 10/07/20 10:45 Dilaudid IM 10/07/20 10:38 1 mg ONETIME ONE Administration Ketorolac Tromethamine 60 mg 10/07/20 11:02 10/07/20 11:12 Toradol IM 10/07/20 11:03 60 mg ONETIME ONE Administration Departure - Departure Time of Disposition: 12:02 Disposition: Home, Self-Care 01 Condition: Good Clinical Impression: Spasm of muscle, back - Discharge Information *PRESCRIPTION DRUG MONITORING PROGRAM REVIEWED*: Yes *COPY OF PRESCRIPTION DRUG MONITORING REPORT IN PATIENT GENO: No (Current MME/day=15.00; OD Zdop=009) Instructions: Muscle Cramps and Spasms, Pain Medicine Instructions, [id number] Forms: ED Department Discharge Additional Instructions: -Alternate ibuprofen 200mg 4 tablets oral very 8 hours with [id number] 3 tablets every 6 hours (Use over the counter meds) -ict support engineer the Cyclobenzaprine prescription that you were given during your previous ER visit. -Take 60mg of Prednisone today, then take 30mg daily for the next 4 days, then return to your usual daily dose of 15mg daily. -You also have Hydrocodone prescribed from your PCP and may need to increase this use for the next couple days. -Apply ice or heat as needed for pain/inflammation -Rest as needed. Increase your activity as you are able. -Consider a chiropractic or massage therapy appt -If pain persists, follow up with Dr Kaleihg Hernandez on Friday. Sepsis Event Note (ED) - Evaluation Sepsis Screening Result: No Definite Risk - Focused Exam Vital Signs: Vital Signs Temp Pulse Resp BP Pulse Ox 10/07/20 10:28 36.5 C 72 20 157/98 H 100
== END 2020-10-07 12:12 | disposition home or self-care (01) ==
LOC: VM.ED 10:28
DX: M62.830 Muscle spasm of back (principal); I10 Essential (primary) hypertension; Z72.0 Tobacco use; Z88.8 Allergy status to other drugs, medicaments and biological substances; Z79.899 Other long term (current) drug therapy
CPT/HCPCS: 96372; 99283; A9270-GY; J1170; J1885

== ENCOUNTER 2020-10-08 20:14 | Inpatient (IN) | payer BC ==
--- NOTE | 2020-10-08 21:43 | EDM.PDOC ---
ED HPI GENERAL MEDICAL PROBLEM - General Chief Complaint: Abdominal Pain Stated Complaint: BACK/SIDE PAIN;ABD PAIN Time Seen by Provider: 10/08/20 21:10 Source of Information: Reports: Patient History Limitations: Reports: No Limitations - History of Present Illness INITIAL COMMENTS - FREE TEXT/NARRATIVE: Patient with a chief complaint of epigastric pain radiating to the right upper quadrant she states it hurts worse when she swallows and eats or when she coughs she rates her pain a 10 out of 10 states is been going on since . She states she saw her primary care provider and was told just to see how it goes over the next couple of days she presented to the ER Friday morning where she had lab work and a CT abdomen pelvis without contrast. She was given multiple medications and discharged home afterwards then she represented at 1030 the same morning. Patient states she has not had anything to eat or drink since being home and has not took any medications that she was given. She called EMS tonight and return to the ER. She denies any fever or chills Covid exposure she has no other complaints at this time Duration: Day(s): Location: Reports: Abdomen Quality: Reports: Ache, Dull, Pressure, Same as Previous Episode, Stabbing, Throbbing Severity: Severe Improves with: Reports: None Worsens with: Reports: Other (Swallowing eating and cough) Associated Symptoms: Reports: No Other Symptoms, Cough. Denies: Confusion, Chest Pain, Diaphoresis, Fever/Chills, Headaches, Loss of Appetite, Nausea/Vomiting, Shortness of Breath, Weakness - Related Data Allergies Allergy/AdvReac Type Severity Reaction Status Date / Time varenicline [From Chantix] Allergy Other Verified 10/08/20 22:02 Home Meds: Home Meds Albuterol Sulfate [Albuterol Sulfate Hfa] 2 inh Q6H PRN 05/30/19 [History] Citalopram Hydrobromide [Celexa] 40 mg DAILY 05/30/19 [History] hydroCHLOROthiazide [Hydrochlorothiazide] 25 mg DAILY 05/30/19 [History] Cyanocobalamin (Vitamin B-12) [B-12] 1,000 mcg PO DAILY 08/02/19 [History] Dextroamphetamine/Amphetamine [Adderall 20 mg Tablet] 10 - 20 mg PO TID 08/02/19 [History] Gabapentin [Neurontin] 300 mg PO BEDTIME 08/02/19 [History] Hydrocodone/Acetaminophen [[place] 5-325 Tablet] 1 each PO QID PRN 08/02/19 [History] Magnesium Oxide [Magnesium] 500 mg PO DAILY 08/02/19 [History] Minocycline [Minocin] 50 mg PO BID 08/02/19 [History] Potassium Chloride [Klor-Con M20] 20 meq PO BID 08/02/19 [History] hydrOXYzine pamoate [Hydroxyzine Pamoate] 50 mg PO QID 08/02/19 [History] predniSONE [Prednisone] 15 mg PO DAILY 08/02/19 [History] Cyclobenzaprine [Flexeril] 10 mg PO TID PRN #30 tab 10/07/20 [Rx] Past Medical History HEENT 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 (See Below) Other HEENT History: presbyopia; hypermetropia Cardiovascular History: Reports: Hypertension Respiratory 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 (See Below) Other Respiratory History: sarcoidosis Gastrointestinal History: Reports: Chronic Constipation, Colon Polyp Genitourinary History: Reports: Pyelonephritis, Renal Calculus 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 (See Below) Other COLD ROLL OPERATOR History: 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 Musculoskeletal History: Reports: Arthritis, Fibromyalgia, Other (See Below) Other Musculoskeletal History: sciatica; arthralgia of both hands Psychiatric History: Reports: ADHD, Anxiety, Depression, Other (See Below) Other Psychiatric History: tobacco use Immunologic 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 (See Below) Other Immunologic History: sarcoidosis Dermatologic 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 (See Below) Other Dermatologic History: acne; nevus congenital - Past Surgical History Respiratory Surgical History: Reports: Lung Biopsies GI Surgical History: Reports: Colonoscopy, Other (See Below) Other GI Surgeries/Procedures: hemorrhoidectomy Female Surgical History: Reports: Lithotripsy/ESWL, Tubal Ligation, Other (See Below) Other Female Surgeries/Procedures: cyrosurger; colposcopy; Musculoskeletal Surgical History: Reports: Carpal Tunnel ED ROS GENERAL - Review of Systems Review Of Systems: See Below Constitutional: Denies: Fever, Chills, Malaise, Weakness, Fatigue, Night Sweats, Diaphoresis, Decreased Appetite, Weight Loss HEENT: Reports: No Symptoms Respiratory: Reports: Cough. Denies: Shortness of Breath, Wheezing, Pleuritic Chest Pain, Sputum, Hemoptysis Cardiovascular: Denies: Chest Pain, Dyspnea on Exertion, Edema, Lightheadedness, Syncope Endocrine: Reports: No Symptoms GI/Abdominal: Reports: Abdominal Pain, Other (Patient denies any dysphagia or odontophagia but does state it hurts after she swallows and points to the mid epigastric area). Denies: Anorexia, Black Stool, Bloody Stool, Constipation, Diarrhea, Decreased Appetite, Flatus, Hematemesis, Hematochezia, Mucous in Stool, Nausea, Stool Incontinence, Vomiting : Reports: Hematuria. Denies: Discharge, Dysuria, Flank Pain, Frequency, Incontinence, Pain, Urgency, Urinary Retention Musculoskeletal: Reports: No Symptoms Skin: Reports: No Symptoms Neurological: Reports: No Symptoms Psychiatric: Reports: No Symptoms Hematologic/Lymphatic: Reports: No Symptoms Immunologic: Reports: No Symptoms ED EXAM, GI/ABD - Physical Exam Exam: See Below Text/Narrative:: Upon walking into the room the patient was asleep and had to be slightly shaken to be woken up she appears to be in no acute distressAnd immediately started crying and states she was in pain Exam Limited By: No Limitations General Appearance: Alert, WD/WN, No Apparent Distress Eyes: Bilateral: Normal Appearance, EOMI Ears: Normal Canal, Hearing Grossly Normal Nose: Normal Inspection, Normal Mucosa, No Blood Throat/Mouth: Normal Inspection, Normal Lips, Normal Teeth, Normal Gums, Normal Oropharynx, Normal Voice, No Airway Compromise Neck: Normal Inspection, Supple, Non-Tender, Full Range of Motion Respiratory/Chest: No Respiratory Distress, Lungs Clear, Normal Breath Sounds, No Accessory Muscle Use, Chest Non-Tender Cardiovascular: Normal Peripheral Pulses, Regular Rate, Rhythm, No Edema, No Gallop, No JVD, No Murmur, No Rub GI/Abdominal Exam: Normal Bowel Sounds, Soft, No Organomegaly, No Distention, Tender, Other (Patient had negative rebound negative psoas negative obturator negative pelvic rock negative heel slap negative McBurney's negative Espinosa's but did have some mild reproducible epigastric pain). No: Non-Tender, Pelvis Stable, Distended, Guarding, Rigid, Rebound, Abnormal Bowel Sounds Back Exam: Normal Inspection, Full Range of Motion. No: CVA Tenderness (L), CVA Tenderness (R) Extremities: Normal Inspection, Normal Range of Motion, Non-Tender, No Pedal Edema, Normal Capillary Refill Neurological: Alert, Oriented, CN II-XII Intact, Normal Cognition, No Motor/Sensory Deficits, Other (Patient had 5 of 5 upper extremity lower extremity strength with full range of motion all extremities) Psychiatric: Normal Affect, Normal Mood, Tearful Skin Exam: Warm, Intact, Normal Color, No Rash Lymphatic: No Adenopathy Course - Vital Signs Text/Narrative:: Lab work from prior visit was reviewed along with CT abdomen pelvis noncontrasted from 07 October at 5:41 AM Impression #1 focal areas of peripheral groundglass opacities at the lung base bilaterally differentials consideration include atelectasis multi lobar viral pneumonia pulmonary edema 2 sigmoid diverticulosis 3 bilateral nonobstructing nephrolithiasis 4 hypodense nodule in the left interpolar kidney likely a cyst but cannot be evaluated on noncontrast and recommend further evaluation with ultrasound or CT #5 moderate sized hiatal hernia. Patient did have a white count of 14,000 secondary to the white count I will recheck lab work today CBC BMP and a lactic acid although her vitals are normal and her exam to the abdomen is pretty benign.White blood cell was repeated now 20,000 up from 14,000 chest x-ray shows no acute finding. With elevated white count possibility of nonfocal pneumonia not showing up yet or with questionable viral pneumonia per CT abdomen pelvis I will place the patient inpatient for course of antibiotics and IV hydration. I spoke with Vonnie she is willing to accept and have her primary care provider Kaleigh see her in the morning. Patient had blood cultures x2 drawn along with a normal lactic acid I did review the patient's UDS from the other day with a positive methadone noted on the UDS Last Recorded V/S: Last Vital Signs Temp 37.2 C 10/08/20 20:15 Pulse 81 10/08/20 20:15 Resp 16 10/08/20 20:15 BP 152/89 H 10/08/20 20:15 Pulse Ox 98 10/08/20 20:15 - Orders/Labs/Meds Orders: Active Orders 24 hr Category Date Time Status Chest 1V Frontal [CR] Stat Exams 10/08/20 22:25 Ordered CULTURE BLOOD [BC] Stat Lab 10/08/20 22:13 Ordered CULTURE BLOOD [BC] Stat Lab 10/08/20 22:19 Received Sodium Chloride 0.9% [Normal Saline] 1,000 ml Med 10/08/20 21:45 Ordered IV ASDIRECTED Medication Orders Sodium Chloride (Normal Saline) 1,000 mls @ 1,000 mls/hr IV ASDIRECTED CJ Last Admin: 10/08/20 21:30 Dose: 1,000 mls/hr Documented by: Labs: Laboratory Tests 10/08/20 10/08/20 10/08/20 Range/Units 21:46 21:46 21:46 WBC 20.0 H (4.0-10.0) x10^3/uL RBC 4.33 (4.00-5.50) x10^6/uL Hgb 14.1 D (12.0-16.0) g/dL Hct 43.3 (33.0-47.0) % MCV 100.0 H (78.0-93.0) fL MCH 32.6 H (26.0-32.0) pg MCHC 32.6 (32.0-36.0) g/dL RDW Coeff of Jen 14.2 (10.0-15.0) % Plt Count 334 (130-400) x10^3/uL Add Manual Diff Yes Neutrophils % (Manual) 73 (50-80) % Band Neutrophils % 1 (0-6) % Lymphocytes % (Manual) 15 L (25-50) % Monocytes % (Manual) 8 (2-11) % Eosinophils % (Manual) 3 (0-4) % Platelet Estimate Adequate Sodium 145 (136-145) mmol/L Potassium 3.5 (3.5-5.1) mmol/L Chloride 107 (98-107) mmol/L Carbon Dioxide 28 (21-32) mmol/L Anion Gap 13.5 (5-15) mmol/L BUN 13 (7-18) mg/dL Creatinine 0.8 (0.55-1.02) mg/dL Est Cr Clr Drug Dosing TNP Estimated GFR (MDRD) > 60 Glucose 99 (74-106) mg/dL Lactic Acid 0.6 (0.4-2.0) mmol/L Calcium 9.1 (8.5-10.1) mg/dL Meds: Medications Generic Name Dose Route Start Last Admin Trade Name Freq PRN Reason Stop Dose Admin Sodium Chloride 1,000 mls @ 1,000 mls/hr 10/08/20 21:45 10/08/20 21:30 Normal Saline IV 1,000 mls/hr ASDIRECTED CJ Administration Discontinued Medications Generic Name Dose Route Start Last Admin Trade Name Christy PRN Reason Stop Dose Admin Al Hydroxide/Mg Hydroxide 30 ml 10/08/20 21:51 10/08/20 22:05 Gi Cocktail PO 10/08/20 21:52 30 ml ONETIME ONE Administration Departure - Departure Time of Disposition: 22:50 Disposition: Admitted As Inpatient 66 Condition: Good Clinical Impression: Leukocytosis, unspecified, Epigastric pain - Discharge Information *PRESCRIPTION DRUG MONITORING PROGRAM REVIEWED*: No *COPY OF PRESCRIPTION DRUG MONITORING REPORT IN PATIENT GENO: No Referrals: Kaleigh Hernandez, [Primary Care Provider] - Forms: ED Department Discharge Sepsis Event Note (ED) - Focused Exam Vital Signs: Vital Signs Temp Pulse Resp BP Pulse Ox 10/08/20 20:15 37.2 C 81 16 152/89 H 98 - Problem List & Annotations (1) Epigastric pain SNOMED Code(s): 94039022 Code(s): R10.13 - EPIGASTRIC PAIN Status: Acute Current Visit: Yes (2) Leukocytosis, unspecified SNOMED Code(s): 718212010, 640334712 Code(s): D72.829 - ELEVATED WHITE BLOOD CELL COUNT, UNSPECIFIED Status: Acute Current Visit: Yes - My Orders Last 24 Hours: My Active Orders 10/08/20 21:45 Sodium Chloride 0.9% [Normal Saline] 1,000 ml IV ASDIRECTED 10/08/20 22:13 CULTURE BLOOD [BC] Stat 10/08/20 22:19 CULTURE BLOOD [BC] Stat 10/08/20 22:25 Chest 1V Frontal [CR] Stat - Assessment/Plan Last 24 Hours: My Active Orders 10/08/20 21:45 Sodium Chloride 0.9% [Normal Saline] 1,000 ml IV ASDIRECTED 10/08/20 22:13 CULTURE BLOOD [BC] Stat 10/08/20 22:19 CULTURE BLOOD [BC] Stat 10/08/20 22:25 Chest 1V Frontal [CR] Stat
[2020-10-08] MEDS ORDERED: Sodium Chloride 0.9% 1,000 ML IV SCH (21:45)
[2020-10-08] MEDS ORDERED: GI Cocktail Oral Solution 30 ML PO ONE (21:51)
[2020-10-08 22:01] LABS: ANION GAP 13.5 mmol/L (5-15); CHLORIDE,CL 107 mmol/L (98-107); SODIUM,NA 145 mmol/L (136-145)
[2020-10-08] MEDS ORDERED: cefTRIAXone 1 GM Vial IVPUSH ONE (22:55)
[2020-10-09] MEDS ORDERED: Azithromycin 500 MG in Sodium Chloride 0.9% 250 ML IV ONE (00:40)
[2020-10-09] MEDS ORDERED: Ondansetron 8 MG in Sodium Chloride 0.9% 100 ML IV PRN (00:48)
[2020-10-09] MEDS ORDERED: Acetaminophen 500 MG Tab PO PRN (00:50)
[2020-10-09] MEDS ORDERED: Ibuprofen 200 MG Tab PO PRN (00:51)
[2020-10-09] MEDS ORDERED: Promethazine 25 MG/ML SDV IM PRN (00:52)
[2020-10-09] MEDS ORDERED: Sodium Chloride 0.9% 1,000 ML IV SCH (01:00)
--- NOTE | 2020-10-09 07:57 | CR ---
[id number] RAD/RAD Chest PA or AP 1V EXAM: RAD Chest PA or AP 1V INDICATION: ELEVATED WBC. COMPARISON: February 26, 2020. DISCUSSION: Cardiomediastinal silhouette is normal in size and contour. Lungs are clear. No pleural effusion or pneumothorax. Chronic healed right-sided rib fractures. IMPRESSION: No evidence of pneumonia or other acute findings. Herman Cuenca MD 10/09/20 0756 Thank you for allowing us to participate in the care of your patient.
[2020-10-09] MEDS ORDERED: hydrALAZINE 25 MG Tab PO PRN (09:12)
[2020-10-09 09:28] LABS: BASE EXCESS VENOUS 1 mmol/L ((-2)-3); BICARBONATE,VENOUS 26 mmol/L (22-29); O2 SATURATION VENOUS 97 %; PCO2 VENOUS 39 mmHG (41-51); PH,VENOUS 7.43 pH (7.33-7.43); PO2 VENOUS 87 mmHG
[2020-10-09] MEDS: HYDROmorphone 0.5 MG/0.5 ML Syringe IVPUSH PRN ×4 (09:31→20:34)
[2020-10-09] MEDS: methylPREDNISolone Sodium Succinate 40 MG/1 ML SDV IVPUSH SCH ×2 (09:31→20:25)
[2020-10-09] MEDS: DULoxetine 30 MG Cap PO SCH (09:31)
[2020-10-09] MEDS: Magnesium Oxide 400 MG Tab PO SCH (09:31)
[2020-10-09] MEDS: Enoxaparin 40 MG/0.4 ML Syringe SUBCUT SCH (09:31)
[2020-10-09] MEDS ORDERED: Iopamidol 612 MG/ML 100 ML Bottle IVPUSH ONE (09:32)
[2020-10-09 09:39] LABS: ANION GAP 9.4 mmol/L (5-15); CHLORIDE,CL 109 mmol/L (98-107); SODIUM,NA 145 mmol/L (136-145)
[2020-10-09] MEDS ORDERED: NS + KCl 20mEq/L 1,000 ML IV SCH (10:15)
[2020-10-09] MEDS ORDERED: cefTRIAXone 1 GM Vial IVPUSH SCH ×2 (10:15→20:00)
--- NOTE | 2020-10-09 10:17 | CT ---
[id number] CT/CTA Chest EXAM: CT ANGIOGRAM CHEST INDICATION: CHEST PAIN. COMPARISON: June 28, 2019. DISCUSSION: No pulmonary embolus is identified, but the degree of contrast opacification of the pulmonary arteries limits assessment. Small bilateral pleural effusions, right greater than left. Stable surgical changes in the left upper lobe. Stable surgical changes left upper lobe. A few scattered small noncalcified nodules have not appreciably changed. A groundglass opacity in the right upper lobe on the prior study is no longer seen. Interval development of a moderate esophageal wall thickening which could be seen with esophagitis or malignancy. Partial atelectasis of both lower lobes. No acute infiltrates. Normal heart size. Stable moderate hiatus hernia. IMPRESSION: 1. Development of moderate esophageal wall thickening. This could be seen in the context of esophagitis or malignancy. Consider endoscopy. 2. No large or central pulmonary embolism. Contrast timing limits assessment for small and peripheral emboli. Bharat Schreiber MD 10/09/20 1015 Thank you for allowing us to participate in the care of your patient.
[2020-10-09] MEDS ORDERED: Azithromycin 250 MG Tab PO SCH ×2 (10:30→20:00)
[2020-10-09] MEDS: Pantoprazole 40 MG Vial IVPUSH SCH ×2 (11:07→20:19)
[2020-10-09] MEDS: Acetaminophen/HYDROcodone 325-5 MG Tab PO PRN ×2 (11:11→18:41)
--- NOTE | 2020-10-09 11:34 | HP ---
CHIEF COMPLAINT: Chest and epigastric pain. HISTORY OF PRESENT ILLNESS: This is a 50-year-old female who was seen in the office on 10/06/2020 because of increasing chest wall pain that is now constant. She has had it off and on for the last couple of years due to her underlying sarcoidosis. She was placed on a burst of prednisone 20 mg daily. She has been coughing, but has not had shortness of breath. No fever, no chills. The patient then was in the ER on the twice for right mid and thoracic back pain, and then on the , she did have workup including an abdominal CT which did suggest ground-glass opacities, atelectasis, pneumonia or pulmonary edema, sigmoid diverticulosis, nonobstructing kidney stones which we know she has, a hypodense nodule on the left kidney, and moderate-sized hiatal hernia. The patient says that she is also having a lot of pain in her throat and she points to mid sternum. She has been on long-term 15 mg daily of prednisone. She has not been using her nebulizers because she cannot afford them. The patient does smoke. White count was up to 20,000. Therefore, she was placed on IV Rocephin and Zithromax, and admitted during the night. She also received various IV agents through her ER visits including IV fentanyl, Valium, Dilaudid, IM ketorolac, Zofran. She was told to take ibuprofen and increase prednisone. Otherwise, this morning, she is quite sleepy and groggy, although has not received any pain medications overnight. She is asking to eat or drink something as she has been kept n.p.o. She normally is on Protonix, I do not see that it is ordered yet. She has been given some IV fluids. ALLERGIES: Include the Chantix. MEDICATIONS: Her medication list is reviewed and shows prednisone currently was 60 mg daily from the ER visit. Hydrocodone 5/325 one every 6 hours as needed for pain, previously took only 3 per day. Adderall 10 mg in the morning, 20 mg at noon and 10 mg at 2 p.m., Celexa 40 mg daily, lisinopril 10 mg daily, Neurontin 100 in the morning and afternoon and 3 at bedtime, Protonix 40 mg daily, albuterol nebs and ProAir inhaler as needed, hydroxyzine 50 mg 4 times a day as needed. PAST MEDICAL HISTORY: The patient is also followed by Psych for ADHD, so her past medical history includes: 1. ADHD. 2. Anxiety. 3. Carpal tunnel. 4. Depression. 5. Essential hypertension. 6. Kidney stones with lithotripsies in the past. 7. Sarcoid diagnosed in 1993, then in remission, reoccurred. 8. Tobacco abuse and smoking. PAST SURGICAL HISTORY: Tubal ligation, I and D of hemorrhoids and hemorrhoid procedures, lithotripsy, cryosurgery for cervical lesions, lung biopsy, and left carpal tunnel surgery. SOCIAL HISTORY: The patient has a partner. She smokes. She does care for her 1 granddaughter who is in grade school. Her daughter is addicted to meth. She works at [employer]. FAMILY HISTORY: Parents are listed is alive. Her mom has diabetes and sarcoid. Father has hypertension. Sister has endometriosis and RA. Another sister with endometriosis. REVIEW OF SYSTEMS: General: The patient has not noted any weight changes. No fever. No chills. HEENT: No upper airway sore throat, but lower esophagus sore throat. Trouble swallowing only due to pain. Cardiac: No left-sided chest wall pain. No palpitations. Respiratory: She has had a cough. She has had wheezing. Abdomen: No nausea, vomiting, diarrhea, or constipation. Musculoskeletal: She has had some upper back pain as well. No numbness or tingling. Otherwise, all systems reviewed and found to be negative unless otherwise stated. PHYSICAL EXAMINATION: Vital Signs: Temperature 97.3, pulse 79, blood pressure 152/92, respiratory rate 16, O2 of 96% on room air. Weight is 74.8 kg. General: She is in no acute distress. She is resting in bed. She appears very sleepy. Heart: Regular rate and rhythm. S1, S2 without murmur. Lungs: Lung sounds show some rhonchi over the left base and also right base with expiratory wheezing throughout. Abdomen: Nondistended, nontender. Extremities: Warm and dry. No edema. Mental Status: She is alert. She is orientated x3. She is able to answer questions. LABORATORY DATA: Lab work this morning, white count improved from 20 to 16.3, hemoglobin 12.6, platelets 339. ESR 23, pCO2 on venous blood gas 39. Sodium 149, potassium 3.4, chloride 109, bicarb 30, BUN 13, creatinine 0.8, lactic normal on admission, glucose 81, calcium 8.4, bilirubin 0.5, AST 11, ALT 13, CRP 4.2, albumin 2.6, lipase 53. UA on the 6th showed 0 to 5 rbc's. Urine was positive for methadone. The patient does not know how that happened. Amphetamines and methamphetamines also positive. ASSESSMENT: 1. Sarcoidosis. The patient is due for a Pulmonary followup later this month. She has a history of this kind of pain. It is unclear if this is just a flare. We will do a CT chest today. 2. Community-acquired pneumonia. We will get a chest CT to further evaluate for that. She will continue on the IV Rocephin and Zithromax for now. 3. Hypokalemia, mild. I will replace with IV fluids given her esophageal pain. 4. Esophageal pain, on long-term steroids. Considerations could include yeast. The patient would need endoscopy. For now, we will do IV Protonix. 5. Abnormal urine drug screen with methadone. We will look into this further for other possible causes and the patient was inadvertently given methadone. She says somebody took some of her hydrocodone in her previous clinic visit. 6. Smoking. She is encouraged to quit. We will give her a nicotine patch if needed. 7. Chronic pain. She is on Neurontin. She is on long-term hydrocodone. Discussed with her and previously her psychiatrist starting her on Cymbalta and she is agreeable to that today. We will wean off Celexa. 8. Attention deficit hyperactivity disorder. I have held her Adderall while she is inpatient. PLAN: The patient will undergo a CTA today to rule out any other causes of chest pain. We will give her IV Solu-Medrol 40 twice daily. I will put her on IV Protonix. We had lab work this morning and will repeat tomorrow with magnesium level. We will continue current treatment. She is not on any oxygen. Dilaudid is available for pain control. For DVT prophylaxis, I have started Lovenox. She is a code level 1. MKA: 10/09/2020 10:16:34 MODL: 10/09/2020 11:27:02 /[id number]
[2020-10-09] MEDS: Fluconazole/Normal Saline 200 MG in Premix Bag 1 BAG IV SCH (12:02)
[2020-10-09] MEDS: Albuterol/Ipratropium 3.0-0.5 MG/3 ML Neb Soln NEB SCH ×2 (12:38→18:29)
[2020-10-09] MEDS: Gabapentin 300 MG Cap PO SCH (20:16)
[2020-10-10] MEDS: Albuterol/Ipratropium 3.0-0.5 MG/3 ML Neb Soln NEB SCH ×4 (01:52→18:27)
[2020-10-10] MEDS: Acetaminophen/HYDROcodone 325-5 MG Tab PO PRN ×3 (06:21→19:52)
[2020-10-10 07:00] LABS: CHLORIDE,CL 104 mmol/L (98-107); SODIUM,NA 139 mmol/L (136-145)
[2020-10-10 07:02] LABS: ANION GAP 14.8 mmol/L (5-15)
[2020-10-10] MEDS: HYDROmorphone 0.5 MG/0.5 ML Syringe IVPUSH PRN ×3 (07:33→17:52)
[2020-10-10] MEDS: Enoxaparin 40 MG/0.4 ML Syringe SUBCUT SCH (07:35)
[2020-10-10] MEDS: Pantoprazole 40 MG Vial IVPUSH SCH ×2 (07:36→19:54)
[2020-10-10] MEDS: DULoxetine 30 MG Cap PO SCH (07:36)
[2020-10-10] MEDS: methylPREDNISolone Sodium Succinate 40 MG/1 ML SDV IVPUSH SCH ×2 (07:36→19:54)
[2020-10-10] MEDS: Azithromycin 250 MG Tab PO SCH (07:36)
[2020-10-10] MEDS: Magnesium Oxide 400 MG Tab PO SCH (07:37)
[2020-10-10] MEDS: Gabapentin 100 MG Cap PO SCH (07:37)
[2020-10-10] MEDS: Citalopram 20 MG Tab PO SCH (07:37)
[2020-10-10] MEDS ORDERED: Ondansetron 4 MG in Sodium Chloride 0.9% 100 ML IV PRN (10:56)
[2020-10-10] MEDS ORDERED: Ondansetron 4 MG Tab.DIS PO PRN (10:57)
--- NOTE | 2020-10-10 11:34 | PN ---
Progress Note for TI [facility] Date: 10/10/2020 Room #: VM.214 SUBJECTIVE: This is hospital day #2 on a 50-year-old admitted with leukocytosis and presumed pneumonia, but then was having more pain in her midsternal chest and trouble swallowing. CT did not reveal pulmonary embolism, but thickening of the esophagus, either esophagitis or concern for malignancy was suspected. The patient's inflammation marker was a 23. She does have a history of sarcoid. She is a smoker. She does have known reactive lung disease. She has been on IV steroids. Her breathing and wheezing seems much better today, but she admits she is still coughing. She has had to use 5 doses of IV Dilaudid 0.5 mg since yesterday including 1 this morning about an hour after her regular hydrocodone the 5 mg dose which she says just is not working enough. Otherwise, she has been afebrile. Her Cymbalta was now started for pain and moods. She is also on gabapentin. She is eating 90% of breakfast, but again has a harder time swallowing the solids due to pain. OBJECTIVE: Vital Signs: Her temperature is 97.6, pulse 80, blood pressure 136/79, respiratory rate 16, O2 of 98% on room air. General: She is in no acute distress. Heart: Regular rate and rhythm. S1, S2 without murmur. Lungs: Lung sounds today are clear to auscultation without crackles or wheezes. Abdomen: Nondistended, nontender. Otherwise, she does grimace slightly in the upper quadrant in esophageal areas, but it is deeper, not something that I am able to palpate. Mental Status: She is alert. She is orientated x3. Skin: She is not pale. It should be noted also for her exam that she did just get a nebulizer this morning. LABORATORY DATA: White count did go up to 22 with 86% neutrophils, hemoglobin 12.7, platelets 368. Sodium 139, potassium 3.8, chloride 104, bicarb 24, BUN 12, creatinine 0.8, magnesium 1.8, calcium 8.8, glucose 155. ASSESSMENT: 1. Community-acquired pneumonia. CT done yesterday is showing more of atelectasis. The patient is being treated now more for a chronic obstructive pulmonary disease exacerbation. We will continue with the oral Zithromax. I am going to discontinue IV Rocephin. I believe the white count went up due to the steroids. 2. Esophageal thickening and pain with swallowing. The patient is arranged for an outpatient EGD on . If she stays, she will get it inpatient. 3. Hypokalemia, replaced. She is now off IV fluids. 4. Essential hypertension. Blood pressure is controlled. 5. Sarcoidosis. She had been on 15 mg of prednisone up until this admission, now is on Solu-Medrol 40 b.i.d. 6. Smoking. She is encouraged to quit. 7. Anxiety and depression. She is being titrated off Celexa and on Cymbalta. 8. Abnormal drug screen with methadone. This was not safe for confirmation. It was reported medications like Benadryl and ibuprofen could cause a false positive. The patient was definitely on NSAIDs. I have taken her off those due to esophageal concerns. 9. Chronic pain, on Neurontin. We will increase her hydrocodone to the 10 mg dose to try to limit the IV Dilaudid. 10.Attention deficit hyperactivity disorder. She is off her Adderall currently while inpatient. PLAN: The patient will continue on acute cares. I will continue the IV Solu- Medrol. I will continue oral Zithromax, but stop IV Rocephin. I will continue IV Protonix. I will order her some viscous lidocaine. IV Diflucan was started yesterday empirically in case she has Jessica esophagitis. We will have her still on a soft or mostly liquid diet with n.p.o. for EGD on . If pain can be controlled with the oral hydrocodone, we will hopefully discharge her home as soon as tomorrow. For DVT prophylaxis, she is on Lovenox, but we would hold doses tomorrow pending her EGD and possible need for biopsies. I will repeat a CBC tomorrow. The patient is not feeling worse, just has not improved yet with her pain in the esophagus and right chest wall area. MKA: 10/10/2020 11:06:01 MODL: 10/10/2020 11:22:58 /[id number]
[2020-10-10] MEDS: Sodium Chloride 0.9% 10 ML Syringe FLUSH PRN ×2 (11:35→14:17)
[2020-10-10] MEDS: Fluconazole/Normal Saline 200 MG in Premix Bag 1 BAG IV SCH (11:43)
[2020-10-10] MEDS ORDERED: Ondansetron 4 MG/2 ML SDV IVPUSH PRN (12:04)
[2020-10-10] MEDS: Lidocaine 2% Viscous Solution 15 ML Cup PO PRN ×2 (12:37→18:27)
[2020-10-10] MEDS: Sodium Chloride 0.9% 10 ML Syringe IV PRN (17:52)
[2020-10-10] MEDS: Gabapentin 300 MG Cap PO SCH (19:51)
[2020-10-11] MEDS: Cyclobenzaprine 10 MG Tab PO PRN ×2 (00:25→11:53)
[2020-10-11] MEDS: Albuterol/Ipratropium 3.0-0.5 MG/3 ML Neb Soln NEB SCH ×4 (00:25→18:22)
[2020-10-11] MEDS: HYDROmorphone 0.5 MG/0.5 ML Syringe IVPUSH PRN ×5 (03:15→20:14)
[2020-10-11] MEDS: Pantoprazole 40 MG Vial IVPUSH SCH ×2 (07:42→20:01)
[2020-10-11] MEDS: Citalopram 20 MG Tab PO SCH (07:42)
[2020-10-11] MEDS: Gabapentin 100 MG Cap PO SCH (07:42)
[2020-10-11] MEDS: methylPREDNISolone Sodium Succinate 40 MG/1 ML SDV IVPUSH SCH ×2 (07:42→20:01)
[2020-10-11] MEDS: Acetaminophen/HYDROcodone 325-5 MG Tab PO PRN ×2 (07:43→16:34)
[2020-10-11] MEDS: DULoxetine 30 MG Cap PO SCH (07:43)
[2020-10-11] MEDS: Magnesium Oxide 400 MG Tab PO SCH (07:43)
[2020-10-11] MEDS: Sodium Chloride 0.9% 10 ML Syringe IV PRN ×7 (07:44→20:14)
[2020-10-11] MEDS: Azithromycin 250 MG Tab PO SCH (07:45)
[2020-10-11] MEDS: Lidocaine 2% Viscous Solution 15 ML Cup PO PRN (09:11)
[2020-10-11] MEDS ORDERED: Lidocaine 2% Viscous Solution 15 ML Cup PO PRN (09:17)
--- NOTE | 2020-10-11 10:12 | PN ---
Progress Note for TI [facility] Date: 10/11/2020 Room #: VM.214 SUBJECTIVE: This is hospital day #3 on a 50-year-old admitted for right-sided chest pain and midsternal pain with esophageal thickening on CT. The patient has used less of the IV Dilaudid, three doses since yesterday, just two doses overnight, one was early this morning. With the increase in her hydrocodone, it did help some. However, the patient states her pain is no better. She is not worse either. She feels it almost expanding when she swallows things, but she is able to swallow. The pain is lower in the esophagus and out over the right lower ribs. Her breathing and cough have improved. She did get a neb this morning. She has been afebrile. She has been tolerating over 75% of her meals. She has not yet had any bowel movements charted. She denies any stomach pain or vomiting. OBJECTIVE: Vital signs: Her temperature is 97.4, pulse 87, blood pressure 135/80, respiratory rate 17, and O2 of 95% on room air. General: She is in no acute distress. Heart: Regular rate and rhythm. Lungs: Lung sounds are clear to auscultation bilaterally without crackles or wheezes. Abdomen: Has positive bowel sounds. Soft, nondistended. It is mildly tender in the midepigastric area. There is no crepitus on exam. Mental Status: She is alert, she is orientated x3. LABORATORY DATA: Otherwise, lab work does show white count improved to 19.2, hemoglobin 11.8, platelets 374. ASSESSMENT: 1. Esophageal and midepigastric pain. She is on IV fluconazole, now day #3. We will have her EGD done tomorrow for further evaluation on the esophageal thickening. She had been on long-term steroids. 2. Concern for community-acquired pneumonia, but probably more of just a chronic obstructive pulmonary disease, bronchitis exacerbation. We will continue to complete a 5-day course of Zithromax. I will continue her on IV Solu-Medrol due to trouble swallowing. 3. Hypokalemia, replaced. 4. Essential hypertension controlled. 5. Sarcoidosis. She had previously been on 15 mg daily of steroids. 6. Smoking. 7. Anxiety and depression. She was recently started on Cymbalta. She is on tapering Celexa. 8. Abnormal urine drug screen with methadone. The patient denies. There was not enough urine for confirmation. 9. Chronic pain. She is on Neurontin. She is on hydrocodone. We will continue p.r.n. IV Dilaudid until after her EGD and we determine the cause of her pain. I did discuss maybe, we will need to transfer for further evaluation. The patient, however, currently is medically stable, just not doing well enough to go home. 10.Attention deficit disorder. Her Adderall is on hold while inpatient. PLAN: The patient will continue acute cares with IV Solu-Medrol and IV Protonix. We did try dose of viscous lidocaine yesterday, it did help with swallowing. We may repeat that today if needed. I will go ahead and try some Carafate because she has previously taken NSAIDs. We will continue IV fluconazole. We will continue diet as tolerated. She had been on Lovenox for DVT prophylaxis, but dose is being held today due to the need for possible biopsy tomorrow. We will start her on some SCDs. Fluid orders have already been put in by Surgery for when she goes n.p.o. again. Patient with continued chest pain requiring IV pain control and IV medications due to pain and trouble swallowing for esophageal pathology that we will be evaluating further tomorrow. MKA: 10/11/2020 09:14:59 MODL: 10/11/2020 10:02:35 /[id number]
[2020-10-11] MEDS: Sucralfate 1 GM Tab PO SCH ×3 (10:53→20:00)
[2020-10-11] MEDS: Fluconazole/Normal Saline 200 MG in Premix Bag 1 BAG IV SCH (11:53)
[2020-10-11] MEDS: Gabapentin 300 MG Cap PO SCH (20:00)
[2020-10-12] MEDS: Albuterol/Ipratropium 3.0-0.5 MG/3 ML Neb Soln NEB SCH ×3 (01:42→13:00)
[2020-10-12] MEDS: Sodium Chloride 0.9% 10 ML Syringe IV PRN ×4 (01:50→20:01)
[2020-10-12] MEDS: HYDROmorphone 0.5 MG/0.5 ML Syringe IVPUSH PRN ×5 (01:51→16:07)
[2020-10-12] MEDS: Sucralfate 1 GM Tab PO SCH ×4 (06:30→20:01)
[2020-10-12 06:58] LABS: CHLORIDE,CL 102 mmol/L (98-107); SODIUM,NA 141 mmol/L (136-145)
[2020-10-12 07:05] LABS: ANION GAP 13.2 mmol/L (5-15)
[2020-10-12] MEDS ORDERED: Lactated Ringers 1,000 ML IV SCH (08:00)
[2020-10-12] MEDS: Pantoprazole 40 MG Vial IVPUSH SCH (08:03)
[2020-10-12] MEDS ORDERED: hydrOXYzine HCl 25 MG Tab PO PRN (08:38)
[2020-10-12] MEDS ORDERED: Citric Acid/Sodium Citrate Solution 30 ML Cup PO ONE (09:55)
[2020-10-12] MEDS ORDERED: Propofol 200 MG/20 ML SDV ONE (10:01)
[2020-10-12] MEDS ORDERED: fentaNYL 100 MCG/2 ML SDV ONE (10:01)
[2020-10-12] MEDS ORDERED: HYDROmorphone 1 MG/ML Syringe IVPUSH ONE (10:19)
[2020-10-12] MEDS: Fluconazole/Normal Saline 200 MG in Premix Bag 1 BAG IV SCH (13:00)
[2020-10-12] MEDS: Citalopram 20 MG Tab PO SCH (13:00)
[2020-10-12] MEDS: Magnesium Oxide 400 MG Tab PO SCH (13:00)
[2020-10-12] MEDS: Gabapentin 100 MG Cap PO SCH (13:00)
[2020-10-12] MEDS: DULoxetine 30 MG Cap PO SCH (13:01)
[2020-10-12] MEDS: Azithromycin 250 MG Tab PO SCH (13:01)
[2020-10-12] MEDS: methylPREDNISolone Sodium Succinate 40 MG/1 ML SDV IVPUSH SCH (13:01)
--- NOTE | 2020-10-12 14:46 | OR ---
SURGERY DATE: 10/12/2020. REFERRING PROVIDER: Kaleigh Hernandez DO The patient is inpatient currently in [facility]. PRE-OPERATIVE DIAGNOSES: 1. Substernal chest pain that is worse with swallowing. This has been ongoing for past 2 weeks. 2. Moderate hiatal hernia seen on CT scan as well as some moderate esophageal wall thickening on more recent CT scan. 3. History of sarcoidosis. The patient is on chronic prednisone. 4. Chronic tobacco use. A pack per day since teenage years. POST-OPERATIVE DIAGNOSES: 1. A 5 cm sliding-type hiatal hernia with significant esophagitis at and above the Z-line affecting the lower esophagus. Cold biopsy x2 bites taken. Mucosa was quite friable and bled easily. 2. Moderate bile reflux within the stomach body. 3. Mild antritis. Cold biopsy x2 bites taken for path and Helicobacter pylori. 4. Mild duodenitis within the duodenal bulb portion. Cold biopsy x2 bites taken. PROCEDURE: Esophagogastroduodenoscopy with cold biopsy x3 separate sites using cold forceps. SURGEON: Roger Chaudhary M.D. ANESTHESIA: Monitored anesthesia care. Harika is a 50-year-old female who was brought to the endoscope suite after discussion of risks and benefits (including but not limited to reaction to medication, bleeding, infection, aspiration, perforation). Informed consent was obtained for monitored anesthesia care and esophagogastroduodenoscopy along with possible biopsy and/or dilatation. Pre-procedure exam including oral cavity was unremarkable. The patient does have some poor dentition. IV, oxygen, and monitors were placed. Patient was placed in the left lateral position and sedation was administered. A bite block was placed gently and scope lightly lubricated and passed through the bite block and over the tongue. Hypopharynx and vocal cords were visualized and unremarkable. Scope was passed through the cricopharynx and into the esophagus. The scope was then passed through the distal esophagus and the GE junction was visualized and photographed. The GE junction was remarkable for 5 cm sliding- type hiatal hernia and exhibited significant esophagitis at and above the Z-line area of the lower esophagus. Cold biopsy x2 bites taken. The patient's mucosa was quite friable and bled easily. This was monitored for a couple minutes to ensure resolution of bleeding. Vocal cords were visualized and unremarkable. The scope was advanced into the stomach and gastric dalal was suctioned. Pylorus was identified and intubated and then the scope was advanced to the third portion of the duodenum. The second portion of the duodenum was unremarkable. The duodenal bulb was visualized and did reveal some mild duodenitis. Cold biopsy x2 bites taken from this area. The scope was brought back into the stomach. The pylorus and the antrum revealed some mild antritis. Cold biopsy x2 bites was taken for path and H pylori. The scope was then retroflexed to visualize the angularis, fundus, body, and cardia. These were unremarkable except for the moderate bile reflux that was noted upon first entering the stomach. The stomach was desufflated of air and then the scope was slowly withdrawn, and the esophagus was closely visualized during withdrawal all the way into the posterior pharynx. It did have a significant esophagitis affecting the mid to lower esophagus. The upper esophagus appeared normal. The patient tolerated the procedure well and went to recovery in stable condition. The patient was monitored until at baseline status. Findings and discharge instructions were reviewed and the patient was discharged in good condition. COMPLICATIONS: None. TOTAL TIME: 14 minutes. ESTIMATED BLOOD LOSS: 4 to 5 mL. RECOMMENDATIONS/FOLLOW-UP: Findings were called and discussed with attending physician, Dr. Kaleigh Hernandez. The patient will avoid any blood thinners for at least the next 24 hours to limit any chance of bleeding from the biopsy sites. May consider some liquid sucralfate to help coat the lower to mid esophagus. She should continue on high-dose PPI. Smoking cessation was also highly recommended. I would like to kindly thank Kaleigh Hernandez for this referral. We will send out letter with path results when available next week. DMB: 10/12/2020 12:28:16 MODL: 10/12/2020 14:32:22 /[id number]
[2020-10-12] MEDS ORDERED: Albuterol/Ipratropium 3.0-0.5 MG/3 ML Neb Soln NEB PRN (16:30)
[2020-10-12] MEDS: Pantoprazole 40 MG Tab.CR PO SCH (17:01)
--- NOTE | 2020-10-12 17:16 | PN ---
Progress Note for TI [facility] Date: 10/12/2020 Room #: VM.214 SUBJECTIVE: This is hospital day #4 on a 50-year-old admitted for midsternal and right-sided pain due to esophagitis. She underwent an EGD this morning that showed she has a 5 cm hiatal hernia. Biopsies were taken and recommendations were made to stay off any Lovenox for 24 hours. She is not currently on any aspirin or NSAIDs. The patient has not had any bowel movements. She is not having any cough or shortness of breath. She is on scheduled nebulizers. She has been afebrile. She did get IV Dilaudid overnight due to the fact that she was n.p.o. for her procedure. Her pain is made worse by eating. OBJECTIVE: Vital Signs: Her temperature 98.6, pulse 84, blood pressure 137/79, respiratory rate 17, and O2 of 97 on room air. General: She is in no acute distress. Heart: Regular rate and rhythm. S1, S2 without murmur. Lungs: Sounds are clear to auscultation bilaterally without crackles or wheezes. Abdomen: Has positive bowel sounds. Soft, nondistended, nontender. Extremities: Warm and dry. No edema. Chest: She does have some tenderness over the right rib cage. This is an area of soreness. There is no bruising or rashes. Mental Status: She is alert. She is orientated x3. LABORATORY DATA: Lab work does show her to have a white count down to 18.5, hemoglobin 11.9, platelets 375. Potassium 4.2, BUN 13, creatinine 0.7, glucose 112. The rest within normal limits. Albumin though is only 2.7. ASSESSMENT AND PLAN: 1. Esophagitis. Differential diagnosis would include reflux, NSAID induced; Jessica; Helicobacter pylori. Biopsies have been sent. We will continue her on Carafate liquid and will be planned for discharge. We will continue the Protonix twice daily, but switch it over to p.o. We will continue IV fluconazole and likely send her home on oral pending biopsy results as she has been on long-term steroids. 2. Community-acquired pneumonia, but likely more of a chronic obstructive pulmonary disease or bronchitis exacerbation. We will switch her steroids over to oral prednisone 40 mg daily and complete a 5-day course of Zithromax. 3. Hypokalemia, replaced. 4. Essential hypertension, controlled. 5. Sarcoidosis, on chronic steroids 15 mg daily. 6. Smoking. 7. Anxiety and depression. 8. Chronic pain. We will change her oral hydrocodone to Dilaudid to see if that works better and limit IV Dilaudid use. She did use more overnight, but she was n.p.o. 9. Attention deficit disorder. Her Adderall is on hold. PLAN: The patient will continue acute cares. She did get her doses of IV Solu- Medrol and Protonix while n.p.o. We will switch those over to oral. She is on viscous lidocaine to help with her throat pain. She is on Carafate. She is avoiding all NSAIDs. We will continue SCDs for DVT prophylaxis. We will hold off on any Lovenox. Anticipate the patient should be stable enough for discharge home tomorrow and outpatient followup while awaiting biopsy results, and I am also changing her nebulizers to p.r.n. MKA: 10/12/2020 16:33:16 MODL: 10/12/2020 17:08:16 /[id number]
[2020-10-12] MEDS: Gabapentin 300 MG Cap PO SCH (20:02)
[2020-10-12] MEDS: HYDROmorphone 2 MG Tab PO PRN (20:08)
[2020-10-13] MEDS: HYDROmorphone 2 MG Tab PO PRN ×2 (05:03→09:43)
[2020-10-13] MEDS: Pantoprazole 40 MG Tab.CR PO SCH (06:15)
[2020-10-13] MEDS: Sucralfate 1 GM Tab PO SCH ×2 (06:15→10:36)
[2020-10-13] MEDS ORDERED: predniSONE 20 MG Tab PO SCH (08:00)
[2020-10-13] MEDS: Magnesium Oxide 400 MG Tab PO SCH (09:45)
[2020-10-13] MEDS: Gabapentin 100 MG Cap PO SCH (09:45)
[2020-10-13] MEDS: DULoxetine 30 MG Cap PO SCH (09:45)
[2020-10-13] MEDS: Azithromycin 250 MG Tab PO SCH (09:45)
[2020-10-13] MEDS: Citalopram 20 MG Tab PO SCH (09:45)
[2020-10-13 09:52] VITALS: BP 134/74; PULSE 89
[2020-10-13] MEDS: Fluconazole/Normal Saline 200 MG in Premix Bag 1 BAG IV SCH (12:18)
--- NOTE | 2020-10-13 14:50 | DISCH ---
PRIMARY DISCHARGE DIAGNOSES: 1. Chest pain due to esophagitis, etiology unclear, biopsies taken on esophagogastroduodenoscopy on 10/11/2020, awaiting results. 2. Chest wall pain with known sarcoidosis and fibromyalgia. The patient was increased to 60 mg of Cymbalta and her pain pills were changed to hydromorphone 4 mg four times a day to help control her symptoms. Last fill for hydrocodone was for 112 pills on 10/11/2020. Per [facility], unclear if she has picked up yet. We will call the pharmacy as she has been hospitalized. 3. Anxiety and depression. She follows with Psychiatry. 4. Community-acquired pneumonia ruled out, probably a bronchitis exacerbation. She was treated with 5 days of Zithromax IV. Rocephin given initially was discontinued. 5. Smoking. 6. Hypokalemia, treated. She does not need any supplements on discharge. 7. Abnormal drug screen with methadone, but no confirmation was sent, the patient denies. 8. Chronic pain. She is also on Neurontin. 9. Attention deficit and hyperactivity disorders. REASON FOR ADMISSION: On the date of admission, this 50-year-old female who had made her third ER trip over the weekend for cough, chest wall pain, and shortness of breath had a white count of 20,000. Abdominal CT was suggesting some atelectasis or infiltrate in the right lower lobe. Therefore, she was admitted for further cares and treatment of pneumonia. Blood cultures were negative. She was treated with IV Rocephin and Zithromax. Her cough and breathing improved with scheduled nebs and they were later changed to p.r.n. and she did not use any. She was placed on IV steroids. She had actually been increased recently in the clinic from 15 mg daily to 20 mg to help her chest wall pain with her history of sarcoidosis. The patient was also found and newly having severe pain with swallowing. She had been on NSAIDs to help with her pain. EGD was arranged and there was a hiatal hernia 5 cm noted with significant esophagitis. Biopsies taken. She had empirically been started on Diflucan IV 200 daily. However, when no white patches were found, we did discontinue this on discharge. The patient's Celexa was decreased to 20 mg and she was started on Cymbalta 30. She tolerated this well. She was also given lidocaine solution up to 3 times a day to help with her esophageal pain, and on discharge, she will receive liquid Carafate. She did receive some oral Carafate here starting yesterday. The patient did receive IV Dilaudid while she was n.p.o., but had not any IV Dilaudid since her dose after her procedure yesterday. Protonix was also given IV during her stay, but now increased to 40 b.i.d. on discharge. Overall, the patient's hospital course was prolonged due to her severe pain with swallowing and need to complete procedures and ensure that she was stable enough to be discharged home. She has been eating 100% of her meals. No bowel movements during her stay here, but she stated that was not unusual. She was started on stool softeners. PHYSICAL EXAMINATION: Vital Signs: Discharging vitals include a temperature of 97.9, pulse 83, blood pressure 143/82, respiratory rate 18, and O2 of 96% on room air. General: She is in no acute distress. Heart: Regular rate and rhythm. S1, S2 without murmur. Lungs: Lung sounds were clear to auscultation bilaterally without crackles or wheezes. Abdomen: Had positive bowel sounds. Soft, nondistended, nontender. Extremities: Warm and dry. No edema. She did have some tenderness over the right side of her ribs, but felt it was deep. There was no crepitus. She denies any new injuries. IMAGING DATA: The patient also had a chest CT that did not show any significant pneumonia. DISCHARGE PLANS AND INSTRUCTIONS: The patient already has followup arranged with Pulmonary for an echo test on the 10/24/2020. The patient will see me in 1 week for a post hospital followup. She will continue and resume her same medications. She had actually not been receiving lisinopril here. She will be on 10 mg daily. Multiple medication changes including starting Carafate for 1 week, prednisone back to 15, starting Cymbalta now 60, off Celexa, stopping hydrocodone and starting Dilaudid 4 mg 4 times a day for pain 28 pills sent, Protonix is b.i.d. Greater than 30 minutes spent on the discharge process. MKA: 10/13/2020 12:48:16 MODL: 10/13/2020 14:41:53 /[id number]
== END 2020-10-13 13:50 | disposition home or self-care (01) | DRG 243 ==
LOC: VM.ED 20:14 → VM.MS 22:54
PROVIDERS: ADMIT Physician Assistant Medical; ATTEND Internal Medicine
PROC: 0DB98ZX Excision of Duodenum, Via Natural or Artificial Opening Endoscopic, Diagnostic (ICD-10-PCS; principal; 2020-10-12)
PROC: 0DB68ZX Excision of Stomach, Via Natural or Artificial Opening Endoscopic, Diagnostic (ICD-10-PCS; 2020-10-12)
DX: K20.90 Esophagitis, unspecified without bleeding (principal); D86.9 Sarcoidosis, unspecified; M79.7 Fibromyalgia; F41.9 Anxiety disorder, unspecified; F32.9 Major depressive disorder, single episode, unspecified; J20.9 Acute bronchitis, unspecified; E87.6 Hypokalemia; Z87.891 Personal history of nicotine dependence; G89.29 Other chronic pain; F90.9 Attention-deficit hyperactivity disorder, unspecified type; K44.9 Diaphragmatic hernia without obstruction or gangrene; Z88.8 Allergy status to other drugs, medicaments and biological substances; Z98.890 Other specified postprocedural states; Z98.51 Tubal ligation status; I10 Essential (primary) hypertension; K59.09 Other constipation; Z86.010 Personal history of colon polyps; Z87.440 Personal history of urinary (tract) infections; Z87.442 Personal history of urinary calculi; J32.0 Chronic maxillary sinusitis; K21.9 Gastro-esophageal reflux disease without esophagitis; K29.80 Duodenitis without bleeding; Z20.822 Contact with and (suspected) exposure to COVID-19
CPT/HCPCS: 00731; 36415; 71045; 71275; 80048; 80053; 82803; 83605; 83690; 83735; 85025; 85652; 86140; 87040; 94640; 99284; 99285-25; A9270-GY; C9113; J0456; J0696; J1170; J1450; J1650; J2704; J2920; J3010; J3480; J7030; J7050; J7120; J7512; J7620-GY; Q9967; U0002

== ENCOUNTER 2020-11-24 20:25 | Emergency (ER) | payer BC ==
[2020-11-24] MEDS ORDERED: Sodium Chloride 0.9% 10 ML Syringe FLUSH PRN (20:37)
[2020-11-24] MEDS ORDERED: Ketorolac 15 MG/ML SDV IVPUSH ONE (20:40)
[2020-11-24] MEDS ORDERED: methylPREDNISolone Sodium Succinate 125 MG/2 ML SDV IV ONE (20:40)
[2020-11-24] MEDS ORDERED: Albuterol/Ipratropium 3.0-0.5 MG/3 ML Neb Soln NEB ONE (20:40)
--- NOTE | 2020-11-24 20:49 | EDM.PDOC ---
ED HPI GENERAL MEDICAL PROBLEM - General Stated Complaint: PAIN IN RIBS Time Seen by Provider: 11/24/20 20:30 Source of Information: Reports: Patient History Limitations: Reports: No Limitations - History of Present Illness INITIAL COMMENTS - FREE TEXT/NARRATIVE: This patient presents to ER with 2-3 week history of cough, shortness of breath, chest congestion, wheezing, and R lateral respirophasic chest pain. Pt. has a history of COPD and is a heavy smoker (30+ pack year). Denies any substernal chest discomfort. She states that her cough is productive. She denies any palpitations. No nausea, vomiting, or diarrhea. She is unaware of any ill contacts. Pt. was hospitalized in October with epigastric pain, pneumonia, and chest wall pain. She was treated with antibiotics at that time. She was thought to have esophagitis and is scheduled to have surgery for hiatal hernia. At this point, it seems the esophagitis is improving. She denies any current epigastric pain. She denies any hemoptysis. Right lateral chest Pain Score (Numeric/FACES): 3 - Related Data Allergies Allergy/AdvReac Type Severity Reaction Status Date / Time varenicline [From Chantix] Allergy Other Verified 11/24/20 21:23 Home Meds: Home Meds Albuterol Sulfate [Albuterol Sulfate Hfa] 2 inh Q6H PRN 05/30/19 [History] Dextroamphetamine/Amphetamine [Adderall 20 mg Tablet] 10 - 20 mg PO TID 08/02/19 [History] Gabapentin [Neurontin] 300 mg PO BEDTIME 08/02/19 [History] Magnesium Oxide [Magnesium] 500 mg PO DAILY 08/02/19 [History] hydrOXYzine pamoate [Hydroxyzine Pamoate] 50 mg PO QID PRN 08/02/19 [History] predniSONE [Prednisone] 15 mg PO DAILY 08/02/19 [History] Cyclobenzaprine [Flexeril] 10 mg PO TID PRN #30 tab 10/07/20 [Rx] Gabapentin [Neurontin] 100 mg PO DAILY 10/09/20 [History] Acetaminophen [Tylenol Extra Strength] 500 mg PO Q4H PRN tablet 10/13/20 [Rx] DULoxetine [Cymbalta] 60 mg PO DAILY #90 cap 10/13/20 [Rx] Docusate Sodium/Sennosides [Senna Plus] 1 tab PO BID tablet 10/13/20 [Rx] HYDROmorphone [Dilaudid] 4 mg PO Q4H PRN tablet 10/13/20 [Rx] Pantoprazole [ProTONIX] 40 mg PO BIDAC #60 tab.cr 10/13/20 [Rx] Past Medical History HEENT 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 (See Below) Other HEENT History: presbyopia; hypermetropia Cardiovascular History: Reports: Hypertension Respiratory 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 (See Below) Other Respiratory History: sarcoidosis Gastrointestinal History: Reports: Chronic Constipation, Colon Polyp Genitourinary History: Reports: Pyelonephritis, Renal Calculus [employer] 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 (See Below) Other [employer] History: 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 Musculoskeletal History: Reports: Arthritis, Fibromyalgia, Other (See Below) Other Musculoskeletal History: sciatica; arthralgia of both hands Psychiatric History: Reports: ADHD, Anxiety, Depression, Other (See Below) Other Psychiatric History: tobacco use Immunologic 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 (See Below) Other Immunologic History: sarcoidosis Dermatologic 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 (See Below) Other Dermatologic History: acne; nevus congenital - Past Surgical History Respiratory Surgical History: Reports: Lung Biopsies GI Surgical History: Reports: Colonoscopy, Other (See Below) Other GI Surgeries/Procedures: hemorrhoidectomy Female Surgical History: Reports: Lithotripsy/ESWL, Tubal Ligation, Other (See Below) Other Female Surgeries/Procedures: cyrosurger; colposcopy; Musculoskeletal Surgical History: Reports: Carpal Tunnel ED ROS GENERAL - Review of Systems Review Of Systems: See Below Constitutional: Reports: No Symptoms HEENT: Reports: No Symptoms Respiratory: Reports: Shortness of Breath, Wheezing, Pleuritic Chest Pain, Cough, Sputum Cardiovascular: Reports: No Symptoms Endocrine: Reports: No Symptoms GI/Abdominal: Reports: No Symptoms : Reports: No Symptoms Musculoskeletal: Reports: No Symptoms Skin: Reports: No Symptoms Neurological: Reports: No Symptoms Psychiatric: Reports: No Symptoms Hematologic/Lymphatic: Reports: No Symptoms Immunologic: Reports: No Symptoms ED EXAM, GENERAL - Physical Exam Exam: See Below Exam Limited By: No Limitations General Appearance: Alert, WD/WN, No Apparent Distress Throat/Mouth: Normal Inspection, Normal Lips, Normal Oropharynx, Normal Voice, No Airway Compromise Head: Atraumatic, Normocephalic Neck: Normal Inspection, Supple, Non-Tender, Full Range of Motion Respiratory/Chest: No Respiratory Distress, No Accessory Muscle Use, Rhonchi, Wheezing Cardiovascular: Normal Peripheral Pulses, Regular Rate, Rhythm, No Edema, No JVD Peripheral Pulses: 4+: Radial (L) GI/Abdominal: Soft, Non-Tender, No Distention, No Mass (Female) Exam: Deferred Rectal (Female) Exam: Deferred Neurological: Alert, Oriented, CN II-XII Intact, Normal Cognition, Normal Reflexes, No Motor/Sensory Deficits Psychiatric: Normal Affect, Normal Mood Skin Exam: Warm, Dry, Intact, Normal Color #1 Interpretation Rhythm: NSR [place]: Normal P-Wave: Present QRS: Normal ST-T: Normal QT: Normal EKG Interpretation Comments: IndicationL Shortness of breath. Course - Vital Signs Last Recorded V/S: Last Vital Signs Temp 36.8 C 11/24/20 20:25 Pulse 90 11/24/20 22:44 Resp 20 11/24/20 21:50 BP 130/75 11/24/20 21:50 Pulse Ox 90 L 11/24/20 21:50 - Orders/Labs/Meds Orders: Active Orders 24 hr Category Date Time Status Chest 1V Frontal [CR] Stat Exams 11/24/20 20:37 Taken PE Chest [Ang Chest] [CT] Stat Exams 11/24/20 21:46 Taken CULTURE BLOOD [BC] Stat Lab 11/24/20 21:03 Received CULTURE BLOOD [BC] Stat Lab 11/24/20 21:07 Received Blood Culture x2 Reflex Set [OM.PC] Stat Oth 11/24/20 20:38 Ordered Peripheral IV Insertion Adult [OM.PC] Routine Oth 11/24/20 20:38 Ordered Labs: Laboratory Tests 11/24/20 11/24/20 11/24/20 Range/Units 20:45 21:03 21:03 WBC 11.4 H (4.0-10.0) x10^3/uL RBC 4.62 (4.00-5.50) x10^6/uL Hgb 15.0 D (12.0-16.0) g/dL Hct 44.2 (33.0-47.0) % MCV 95.7 H D (78.0-93.0) fL MCH 32.5 H (26.0-32.0) pg MCHC 33.9 (32.0-36.0) g/dL RDW Coeff of Jen 13.1 (10.0-15.0) % Plt Count 354 (130-400) x10^3/uL Neut % (Auto) 57.8 (50.0-80.0) % Lymph % (Auto) 26.0 (25.0-50.0) % Moca % (Auto) 8.5 (2.0-11.0) % Eos % (Auto) 7.4 H (0.0-4.0) % Baso % (Auto) 0.3 (0.2-1.2) % PT 10.9 (9.9-12.5) SEC INR 1.0 L (2.0-3.5) APTT (25.6-32.8) SEC D-Dimer, Quantitative 1.00 H (<=0.58) mg/LFEU Sodium (136-145) mmol/L Potassium (3.5-5.1) mmol/L Chloride (98-107) mmol/L Carbon Dioxide (21-32) mmol/L Anion Gap (5-15) mmol/L BUN (7-18) mg/dL Creatinine (0.55-1.02) mg/dL Est Cr Clr Drug Dosing mL/min Estimated GFR (MDRD) Glucose (74-106) mg/dL Lactic Acid (0.4-2.0) mmol/L Calcium (8.5-10.1) mg/dL Corrected Calcium (8.5-10.1) mg/dL Magnesium (1.8-2.4) mg/dL Total Bilirubin (0.2-1.0) mg/dL AST (15-37) U/L ALT (14-59) U/L Alkaline Phosphatase (46-116) U/L Troponin I High Sens (<=51) ng/L C-Reactive Protein (<=0.9) mg/dL Total Protein (6.4-8.2) g/dL Albumin (3.4-5.0) g/dL Globulin Albumin/Globulin Ratio SARS CoV-2 RNA Rapid CALVIN Negative (NEGATIVE) 03/26/21 03/26/21 03/26/21 Range/Units 21:03 21:03 21:03 WBC (4.0-10.0) x10^3/uL RBC (4.00-5.50) x10^6/uL Hgb (12.0-16.0) g/dL Hct (33.0-47.0) % MCV (78.0-93.0) fL MCH (26.0-32.0) pg MCHC (32.0-36.0) g/dL RDW Coeff of Jen (10.0-15.0) % Plt Count (130-400) x10^3/uL Neut % (Auto) (50.0-80.0) % Lymph % (Auto) (25.0-50.0) % Moca % (Auto) (2.0-11.0) % Eos % (Auto) (0.0-4.0) % Baso % (Auto) (0.2-1.2) % PT (9.9-12.5) SEC INR (2.0-3.5) APTT 26.6 (25.6-32.8) SEC D-Dimer, Quantitative (<=0.58) mg/LFEU Sodium 142 (136-145) mmol/L Potassium 3.7 (3.5-5.1) mmol/L Chloride 103 (98-107) mmol/L Carbon Dioxide 29 (21-32) mmol/L Anion Gap 13.7 (5-15) mmol/L BUN 11 (7-18) mg/dL Creatinine 0.8 (0.55-1.02) mg/dL Est Cr Clr Drug Dosing 69.59 mL/min Estimated GFR (MDRD) > 60 Glucose 100 (74-106) mg/dL Lactic Acid 1.1 (0.4-2.0) mmol/L Calcium 8.9 (8.5-10.1) mg/dL Corrected Calcium 9.54 (8.5-10.1) mg/dL Magnesium 1.8 (1.8-2.4) mg/dL Total Bilirubin 0.3 (0.2-1.0) mg/dL AST 15 (15-37) U/L ALT 12 L (14-59) U/L Alkaline Phosphatase 122 H (46-116) U/L Troponin I High Sens < 4 (<=51) ng/L C-Reactive Protein 1.7 H (<=0.9) mg/dL Total Protein 7.0 (6.4-8.2) g/dL Albumin 3.2 L (3.4-5.0) g/dL Globulin 3.8 Albumin/Globulin Ratio 0.84 SARS CoV-2 RNA Rapid CALVIN (NEGATIVE) Meds: Medications Discontinued Medications Generic Name Dose Route Start Last Admin Trade Name Christy PRN Reason Stop Dose Admin Albuterol 2.5 mg 11/24/20 22:30 11/24/20 22:34 Albuterol 0.083% 2.5 Mg/3 Ml Neb Soln NEB 11/24/20 22:31 2.5 mg ONETIME ONE Administration Albuterol/Ipratropium 3 ml 11/24/20 20:40 11/24/20 20:52 Albuterol/Ipratropium 3.0-0.5 Mg/3 Ml Neb Soln NEB 11/24/20 20:41 3 ml ONETIME ONE Administration Ceftriaxone Sodium 2 gm 11/24/20 21:18 11/24/20 21:40 Ceftriaxone 2 Gm Vial IVPUSH 11/24/20 21:19 2 gm STAT ONE Administration Doxycycline Monohydrate 1 packet 11/24/20 22:46 11/24/20 22:59 Take Home: Doxycycline 100 Mg Tab, 4 Tab Pack PO 11/24/20 22:47 1 packet ONETIME ONE Administration Iopamidol 100 ml 11/24/20 22:39 11/24/20 22:43 Iopamidol 612 Mg/Ml 100 Ml Bottle IVPUSH 11/24/20 22:40 100 ml ONETIME ONE Administration Ketorolac Tromethamine 15 mg 11/24/20 20:40 11/24/20 21:08 Ketorolac 15 Mg/Ml Sdv IVPUSH 11/24/20 20:41 15 mg ONETIME ONE Administration Methylprednisolone Sodium Succinate 125 mg 11/24/20 20:40 11/24/20 21:15 Methylprednisolone Sodium Succinate 125 Mg/2 Ml Sdv IV 11/24/20 20:41 125 mg ONETIME ONE Administration Methylprednisolone Sodium Succinate Confirm 11/24/20 21:23 11/24/20 21:50 Methylprednisolone Sodium Succinate 125 Mg/2 Ml Sdv Administered 11/24/20 21:24 Not Given Dose 125 mg .ROUTE .STK-MED ONE Sodium Chloride 10 ml 11/24/20 20:37 Sodium Chloride 0.9% 10 Ml Syringe FLUSH ASDIRECTED PRN Keep Vein Open - Radiology Interpretation Free Text/Narrative:: CTA chest did not reveal any PE. Evidence of esophagitis. COPD. No consolidation. - Re-Assessments/Exams Free Text/Narrative Re-Assessment/Exam: Pt. was given 2 breathing treatments in ER and reported significant improvement in breathing. She was given solu medrol 125mg IV. She was given rocephin 2 gm IV and doxycycline 100mg. Toradol 15mg IV helped with the chest pain. Departure - Departure Time of Disposition: 18:18 Disposition: Home, Self-Care 01 Clinical Impression: COPD exacerbation, Bronchitis, Atypical chest pain - Discharge Information Instructions: Chronic Obstructive Pulmonary Disease Exacerbation, Doxycycline tablets or capsules, Prednisone tablets Referrals: Kaleigh Hernandez DO [Primary Care Provider] - Forms: ED Department Discharge Additional Instructions: Stop smoking GARY. Doxycycline 100mg 1 twice daily for 10 days total Prednisone 20mg 3 tabs daily for 5 days Continue with albuterol inhaler Ibuprofen 200mg 3 tabs every 6 hours as needed for pain Recheck in clinic in 10-14 days Sepsis Event Note (ED) - Focused Exam Vital Signs: Vital Signs Temp Pulse Resp BP Pulse Ox 11/24/20 22:44 90 11/24/20 21:50 85 20 130/75 90 L 11/24/20 20:52 89 11/24/20 20:25 36.8 C 104 H 24 H 156/95 H 89 L - Problem List Review Problem List Initiated/Reviewed/Updated: Yes - My Orders Last 24 Hours: My Active Orders 11/24/20 20:37 Chest 1V Frontal [CR] Stat 11/24/20 20:38 Blood Culture x2 Reflex Set [OM.PC] Stat Peripheral IV Insertion Adult [OM.PC] Routine 11/24/20 21:03 CULTURE BLOOD [BC] Stat 11/24/20 21:07 CULTURE BLOOD [BC] Stat 11/24/20 21:46 PE Chest [Ang Chest] [CT] Stat - Assessment/Plan Last 24 Hours: My Active Orders 11/24/20 20:37 Chest 1V Frontal [CR] Stat 11/24/20 20:38 Blood Culture x2 Reflex Set [OM.PC] Stat Peripheral IV Insertion Adult [OM.PC] Routine 11/24/20 21:03 CULTURE BLOOD [BC] Stat 11/24/20 21:07 CULTURE BLOOD [BC] Stat 11/24/20 21:46 PE Chest [Ang Chest] [CT] Stat Plan: Stop smoking GARY. Doxycycline 100mg 1 twice daily for 10 days total Prednisone 20mg 3 tabs daily for 5 days Continue with albuterol inhaler Ibuprofen 200mg 3 tabs every 6 hours as needed for pain Recheck in clinic in 10-14 days
[2020-11-24] MEDS ORDERED: cefTRIAXone 2 GM Vial IVPUSH ONE (21:18)
[2020-11-24] MEDS ORDERED: methylPREDNISolone Sodium Succinate 125 MG/2 ML SDV ONE (21:23)
[2020-11-24 21:42] LABS: CHLORIDE,CL 103 mmol/L (98-107); SODIUM,NA 142 mmol/L (136-145)
[2020-11-24 21:46] LABS: ANION GAP 13.7 mmol/L (5-15)
[2020-11-24] MEDS ORDERED: Albuterol 0.083% 2.5 MG/3 ML Neb Soln NEB ONE (22:30)
[2020-11-24 22:31] VITALS: BP 130/75
[2020-11-24] MEDS ORDERED: Iopamidol 612 MG/ML 100 ML Bottle IVPUSH ONE (22:39)
[2020-11-24] MEDS ORDERED: Take Home: Doxycycline 100 MG Tab, 4 Tab Pack PO ONE (22:46)
[2020-11-24 22:56] VITALS: PULSE 90
--- NOTE | 2020-11-25 08:58 | CT ---
[id number] CT/CTA Chest EXAM: CT ANGIOGRAM CHEST INDICATION: Shortness of breath with concern for pulmonary embolism. COMPARISON: October 09, 2020. DISCUSSION: The pulmonary arteries are normal in appearance with no emboli identified. Sequela of chronic obstructive pulmonary disease with mild apical predominant emphysema and bronchial wall thickening compatible with bronchitis. There are scattered areas of focal mucus plugging involving subsegmental airways. No acute infiltrates. 6 mm noncalcified nodule right upper lobe (image 55 series 4) not definitely seen on prior studies. A 6 month follow-up CT examination is suggested. Stable surgical changes in the left upper lobe. No pleural or pericardial effusion. Normal heart size. No mediastinal, hilar or axillary lymphadenopathy. Moderate hiatus hernia with mild persistent distal esophageal wall thickening. Multiple chronic right rib fractures. A 14 mm hypodensity in the upper pole of the left kidney is indeterminate. Scattered nonobstructing stones in both kidneys. The largest calculus measures about 5 mm on the right. IMPRESSION: 1. Negative for pulmonary embolism. 2. Chronic obstructive pulmonary disease. 3. Newly identified 6 mm noncalcified right upper lobe pulmonary nodule. A 6 month follow-up chest CT without contrast is suggested. 4. Indeterminate 14 mm left renal hypodensity. Abdomen CT or MRI with and without contrast could provide further evaluation. 5. Moderate hiatus hernia with a mild residual thick-walled appearance of the distal esophagus which could be from esophagitis. Bharat Schreiber MD 11/25/20 [id number] Thank you for allowing us to participate in the care of your patient.
--- NOTE | 2020-11-25 12:03 | CR ---
[id number] RAD/RAD Chest PA or AP 1V EXAM: FRONTAL CHEST INDICATION: Shortness of breath. COMPARISON: October 08, 2020. DISCUSSION: Hyperinflation suggests underlying chronic obstructive pulmonary disease. No acute infiltrates are identified. Normal heart size. No effusions. Chronic healed right rib fractures are unchanged. IMPRESSION: 1. No acute findings. Bharat Schreiber MD 11/25/20 [id number] Thank you for allowing us to participate in the care of your patient.
== END 2020-11-24 23:23 | disposition home or self-care (01) ==
LOC: VM.ED 20:25
DX: J44.1 Chronic obstructive pulmonary disease with (acute) exacerbation (principal); I10 Essential (primary) hypertension; Z88.1 Allergy status to other antibiotic agents; Z20.822 Contact with and (suspected) exposure to COVID-19; Z79.899 Other long term (current) drug therapy
CPT/HCPCS: 36415; 71045; 71275; 80053; 83605; 83735; 84484; 85025; 85379; 85610; 85730; 86140; 87040; 93005; 93010; 94640; 96374; 96375; 99284; 99285-25; A9270-GY; J0696; J1885; J2930; J7613-GY; J7620-GY; Q9967; U0002

== ENCOUNTER 2020-11-25 12:35 | Inpatient (IN) | payer BC ==
[2020-11-25] MEDS ORDERED: HYDROmorphone 1 MG/ML Syringe IVPUSH ONE (12:38)
[2020-11-25] MEDS ORDERED: Ketorolac 15 MG/ML SDV IVPUSH ONE (12:39)
--- NOTE | 2020-11-25 13:22 | CR ---
[id number] RAD/RAD Chest PA And Lateral EXAM: FRONTAL AND LATERAL CHEST INDICATION: R SIDED CHEST PAIN COMPARISON: November 24, 2020. DISCUSSION: Decreased aeration of both lungs with associated central vascular crowding and basilar atelectasis. These findings could obscure infiltrates or other pathology in the lung bases. Chronic right rib fractures are unchanged. Normal heart size. No effusions. IMPRESSION: 1. Low lung volumes with central vascular crowding and bibasilar atelectasis. Bharat Schreiber MD 11/25/20 [id number] Thank you for allowing us to participate in the care of your patient.
[2020-11-25] MEDS ORDERED: Morphine 4 MG/ML Syringe IVPUSH ONE (13:47)
[2020-11-25 13:49] LABS: CHLORIDE,CL 102 mmol/L (98-107); SODIUM,NA 139 mmol/L (136-145)
[2020-11-25 13:52] LABS: ANION GAP 13.2 mmol/L (5-15)
--- NOTE | 2020-11-25 14:17 | EDM.PDOC ---
ED HPI GENERAL MEDICAL PROBLEM - General Chief Complaint: Back Pain or Injury Time Seen by Provider: 11/25/20 12:40 Source of Information: Reports: Patient History Limitations: Reports: No Limitations - History of Present Illness INITIAL COMMENTS - FREE TEXT/NARRATIVE: Pt. presents back to ER. She was seen last night with complaints of cough, wheezing, and chest wall pain. Chest x-ray did not show any infiltrate. She did have a mildly elevated d dimer. CTA of the chest was obtained, negative for PE. Again, no consolidation was noted. She did have some evidence of COPD, and incidental finding of solitary lung nodule and renal cyst. She also had evidence of gastritis, which is a chronic problem for her, but she is not experiencing any epigastric pain. She was sent on on steroids and antibiotics. She states that today, she coughed and felt instantaneous pain, this time more medial and posterior to the pain she was having last night. She uses norco at home, and states that this is not helping. She denies any hemoptysis, new fever, chills. No substernal chest pain. Denies any nausea or vomiting today. She denies any recent trauma. Pt. is a 30+ pack her smoker. She also has a history of sarcoidosis. Pt. states that the cough, congestion, and wheezing started approx. 2-3 weeks ago. Onset: Today Onset Date: 11/25/20 Middle Back Pain Score (Numeric/FACES): 10 - Related Data Allergies Allergy/AdvReac Type Severity Reaction Status Date / Time varenicline [From Chantix] Allergy Other Verified 11/25/20 12:59 Home Meds: Home Meds Albuterol Sulfate [Albuterol Sulfate Hfa] 2 inh Q6H PRN 05/30/19 [History] Gabapentin [Neurontin] 300 mg PO BEDTIME 08/02/19 [History] hydrOXYzine pamoate [Hydroxyzine Pamoate] 50 mg PO QID PRN 08/02/19 [History] Gabapentin [Neurontin] 100 mg PO DAILY 10/09/20 [History] Acetaminophen [Tylenol Extra Strength] 500 mg PO Q4H PRN tablet 10/13/20 [Rx] Docusate Sodium/Sennosides [Senna Plus] 1 tab PO BID tablet 10/13/20 [Rx] Pantoprazole [ProTONIX] 40 mg PO BIDAC #60 tab.cr 10/13/20 [Rx] Acetaminophen/HYDROcodone [[place] 325-5 MG] 1 tab PO Q6H PRN 11/25/20 [History] Albuterol Sulfate 0.63 mg IH QID PRN 11/25/20 [History] Amphetamine/Dextroamphetamine [Adderall XR] 20 mg PO DAILY 11/25/20 [History] Cyclobenzaprine [Flexeril] 10 mg PO TID 11/25/20 [History] DULoxetine [Cymbalta] 90 mg PO DAILY 11/25/20 [History] Dextroamphetamine/Amphetamine [Adderall 10 mg Tablet] 10 mg PO BID 11/25/20 [History] Magnesium Oxide 400 mg PO DAILY 11/25/20 [History] Sucralfate [Carafate] 1 gm PO TIDAC PRN 11/25/20 [History] lisinopriL [Lisinopril] 10 mg PO DAILY 11/25/20 [History] Past Medical History HEENT 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 (See Below) Other HEENT History: presbyopia; hypermetropia Cardiovascular History: Reports: Hypertension Respiratory 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 (See Below) Other Respiratory History: sarcoidosis Gastrointestinal History: Reports: Chronic Constipation, Colon Polyp Genitourinary History: Reports: Pyelonephritis, Renal Calculus 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 Musculoskeletal History: Reports: Arthritis, Fibromyalgia, Other (See Below) Other Musculoskeletal History: sciatica; arthralgia of both hands Psychiatric History: Reports: ADHD, Anxiety, Depression, Other (See Below) Other Psychiatric History: tobacco use Immunologic 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 (See Below) Other Immunologic History: sarcoidosis Dermatologic 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 (See Below) Other Dermatologic History: acne; nevus congenital - Infectious Disease History Infectious Disease History: Reports: None - Past Surgical History Respiratory Surgical History: Reports: Lung Biopsies GI Surgical History: Reports: Colonoscopy, Other (See Below) Other GI Surgeries/Procedures: hemorrhoidectomy Female Surgical History: Reports: Lithotripsy/ESWL, Tubal Ligation, Other (See Below) Other Female Surgeries/Procedures: cyrosurger; colposcopy; Musculoskeletal Surgical History: Reports: Carpal Tunnel Social & Family History - Tobacco Use Tobacco Use Status *Q: Current Every Day Tobacco User Years of Tobacco use: 30 Packs/Tins Daily: 1 ED ROS GENERAL - Review of Systems Review Of Systems: See Below Constitutional: Reports: No Symptoms HEENT: Reports: No Symptoms Respiratory: Reports: Shortness of Breath, Wheezing, Pleuritic Chest Pain, Cough, Sputum. Denies: Hemoptysis Cardiovascular: Reports: Chest Pain. Denies: Dyspnea on Exertion, Lightheadedness, Palpitations Endocrine: Reports: No Symptoms GI/Abdominal: Reports: No Symptoms : Reports: No Symptoms Musculoskeletal: Reports: No Symptoms Skin: Reports: No Symptoms Neurological: Reports: No Symptoms Psychiatric: Reports: No Symptoms Hematologic/Lymphatic: Reports: No Symptoms Immunologic: Reports: No Symptoms ED EXAM, GENERAL - Physical Exam Exam: See Below Exam Limited By: No Limitations General Appearance: Alert, WD/WN, No Apparent Distress, Moderate Distress Eye Exam: Bilateral Eye: EOMI Throat/Mouth: Normal Lips, Normal Teeth, Normal Oropharynx, Normal Voice, No Airway Compromise Head: Atraumatic, Normocephalic Neck: Normal Inspection, Supple, Non-Tender Respiratory/Chest: Decreased Breath Sounds, Wheezing, Other (Severe tenderness with very light palpation of R posterior mid/lower ribs. Her lung sounds are actually much improved from arrival to ER last night. O2 sat has improved as well, maintaining sats in the mid 90s in RA.) Cardiovascular: Normal Peripheral Pulses, Regular Rate, Rhythm, No Edema, No JVD Peripheral Pulses: 4+: Radial (L) GI/Abdominal: Soft, Non-Tender, No Distention, No Mass (Female) Exam: Deferred Rectal (Female) Exam: Deferred Back Exam: Normal Inspection, Full Range of Motion Extremities: Normal Inspection, Normal Range of Motion, Non-Tender, No Pedal Edema, Normal Capillary Refill Neurological: Alert, Oriented, CN II-XII Intact, Normal Cognition, Normal Gait, Normal Reflexes, No Motor/Sensory Deficits Psychiatric: Normal Affect, Normal Mood Course - Vital Signs Last Recorded V/S: Last Vital Signs Temp 36.8 C 11/25/20 12:40 Pulse 110 H 11/25/20 14:01 Resp 20 11/25/20 14:01 BP 137/92 H 11/25/20 14:01 Pulse Ox 93 L 11/25/20 14:01 - Orders/Labs/Meds Labs: Laboratory Tests 11/25/20 11/25/20 11/25/20 Range/Units 13:16 13:16 13:16 WBC 13.2 H (4.0-10.0) x10^3/uL RBC 4.31 (4.00-5.50) x10^6/uL Hgb 14.0 (12.0-16.0) g/dL Hct 41.4 (33.0-47.0) % MCV 96.1 H (78.0-93.0) fL MCH 32.5 H (26.0-32.0) pg MCHC 33.8 (32.0-36.0) g/dL RDW Coeff of Jen 13.2 (10.0-15.0) % Plt Count 361 (130-400) x10^3/uL Neut % (Auto) 91.4 H (50.0-80.0) % Lymph % (Auto) 6.9 L (25.0-50.0) % [place] % (Auto) 1.6 L (2.0-11.0) % Eos % (Auto) 0.0 (0.0-4.0) % Baso % (Auto) 0.1 L (0.2-1.2) % Sodium 139 (136-145) mmol/L Potassium 4.2 (3.5-5.1) mmol/L Chloride 102 (98-107) mmol/L Carbon Dioxide 28 (21-32) mmol/L Anion Gap 13.2 (5-15) mmol/L BUN 14 (7-18) mg/dL Creatinine 0.9 (0.55-1.02) mg/dL Est Cr Clr Drug Dosing 61.86 mL/min Estimated GFR (MDRD) > 60 Glucose 156 H (74-106) mg/dL Lactic Acid 2.7 H* (0.4-2.0) mmol/L Calcium 9.5 (8.5-10.1) mg/dL Corrected Calcium 10.14 H (8.5-10.1) mg/dL Total Bilirubin 0.2 (0.2-1.0) mg/dL AST 14 L (15-37) U/L ALT 20 (14-59) U/L Alkaline Phosphatase 122 H (46-116) U/L Troponin I High Sens < 4 (<=51) ng/L Total Protein 7.3 (6.4-8.2) g/dL Albumin 3.2 L (3.4-5.0) g/dL Globulin 4.1 Albumin/Globulin Ratio 0.78 Meds: Medications Discontinued Medications Generic Name Dose Route Start Last Admin Trade Name Christy PRN Reason Stop Dose Admin Albuterol/Ipratropium 3 ml 11/25/20 14:19 11/25/20 14:25 Albuterol/Ipratropium 3.0-0.5 Mg/3 Ml Neb Soln NEB 11/25/20 14:20 3 ml ONETIME ONE Administration Hydromorphone HCl 1 mg 11/25/20 12:38 11/25/20 12:47 Hydromorphone 1 Mg/Ml Syringe IVPUSH 11/25/20 12:39 1 mg ONETIME ONE Administration Ketorolac Tromethamine 15 mg 11/25/20 12:39 11/25/20 12:47 Ketorolac 15 Mg/Ml Sdv IVPUSH 11/25/20 12:40 15 mg ONETIME ONE Administration Morphine Sulfate 4 mg 11/25/20 13:47 11/25/20 14:00 Morphine 4 Mg/Ml Syringe IVPUSH 11/25/20 13:48 4 mg ONETIME ONE Administration - Radiology Interpretation Free Text/Narrative:: Poor air entry, mild atelectasis noted on CXR. No pneumothorax or acute infiltrate noted. - Re-Assessments/Exams Free Text/Narrative Re-Assessment/Exam: 11/25/20 14:36 Pt. was given a duoneb treatment in ER. She was given IV dilaudid on arrival to ER. She was rating her pain at 10 on 1-10 scale. She was also given IV toradol 15mg IV. Initially this helped, but she was given a 4 mg morphine IV for intensifying pain. She reported significant improvement in discomfort at that point. Departure - Departure Time of Disposition: 14:33 Disposition: Admitted As Inpatient 66 Clinical Impression: COPD (chronic obstructive pulmonary disease), Lactic acidosis, Right-sided chest wall pain - Discharge Information Sepsis Event Note (ED) - Evaluation Sepsis Screening Result: No Definite Risk - Focused Exam Vital Signs: Vital Signs Temp Pulse Resp BP Pulse Ox 11/25/20 14:01 110 H 20 137/92 H 93 L 11/25/20 12:40 36.8 C 123 H 16 153/97 H 94 L - Problem List Review Problem List Initiated/Reviewed/Updated: Yes - Assessment/Plan Plan: Pt. will be admitted acutely. Her WBCs have increased mildly. She is afebrile. This could be due to steroids, or due to stress from being ill/uncomfortable. She also has an elevated lactic acid which was normal last night. This will need to be trended. I did start her on IV NS at 250ml a hour. Will recheck lactate in 3 hours. She is a code 1. She will be admitted by Dr. Cedillo. She identifies her PCP and Dr. Kaleigh Hernandez.
[2020-11-25] MEDS ORDERED: Albuterol/Ipratropium 3.0-0.5 MG/3 ML Neb Soln NEB ONE (14:19)
[2020-11-25] MEDS ORDERED: Sodium Chloride 0.9% 1,000 ML IV SCH (14:45)
--- NOTE | 2020-11-25 15:34 | PCM.HP.2 ---
H&P History of Present Illness - General Date of Service: 11/25/20 Admit Problem/Dx: Admission Diagnosis/Problem Admission Diagnosis/Problem Bronchitis, Restrictive Airway Disease, ?COPD Source of Information: Patient, EMS, Old Records History Limitations: Reports: No Limitations - History of Present Illness Initial Comments - Free Text/Narative: Rita Moreland is a 50-year-old female with past medical history of hypertension, ADHD, sarcoidosis, depression, anxiety, tobacco use disorder and ADHD who presented to the ER for complaints of cough, wheezing, chest wall pain. She was initially seen last evening on 11/24/2020 for these complaints. Extensive workup was completed at that time: Chest x-ray did not show any infiltrates, she had a mildly elevated d-dimer but CTA of the chest was negative for PE. CT did demonstrate some evidence of COPD as well as an incidental solitary lung nodule and a renal cyst as well as evidence of her gastritis. COVID was negative. Last evening she was sent home on steroids and antibiotics. She presented back to the ER today after worsening pain after she had had a coughing spell. Upon presenting to the ER today patient was noted to be stable, pulse was mildly tachycardic at 110. O2 sat 93% on room air. She had quite a bit of wheezing as well as decreased breath sounds however the provider noted that these were improved from the night before. Provider also noted some severe tenderness with palpation over the chest wall that may be indicative of costochondritis. Repeat chest x-ray did not show any new infiltrate. Laboratory evaluation was notable for a very mild leukocytosis of 13.2 with a neutrophil predominance. Lactic acid was mildly elevated at 2.7. She was given a DuoNeb in the ER as well as pain medication. Due to this potentially being a COPD exacerbation versus bronchitis exacerbation as well as has history of long hospitalizations decision was made to admit her under inpatient status.Dietary Services Director has been weaning her off of her prednisone. Patient states that the last week of her steroid taper with when her wheezing and cough had started. This is been persisting now for 2-3 weeks time. At this time patient notes that her symptoms are a little bit better than what they were in the ER. C/O of the deep, hacking cough and associated chest wall pains as well as the wheezing. Has a hoarse voice from the cough. Dietary intake has been poor but she notes she is very hungry at this time. Middle Back Pain Score (Numeric/FACES): 5 - Related Data Allergies/Adverse Reactions: Allergies Allergy/AdvReac Type Severity Reaction Status Date / Time varenicline [From Chantix] Allergy Other Verified 11/25/20 12:59 Home Medications: Home Meds Albuterol Sulfate [Albuterol Sulfate Hfa] 2 inh INH Q6H PRN 05/30/19 [History] Gabapentin [Neurontin] 300 mg PO BEDTIME 08/02/19 [History] hydrOXYzine pamoate [Hydroxyzine Pamoate] 50 mg PO QID PRN 08/02/19 [History] Gabapentin [Neurontin] 100 mg PO DAILY 10/09/20 [History] Acetaminophen [Tylenol Extra Strength] 500 mg PO Q4H PRN tablet 10/13/20 [Rx] Docusate Sodium/Sennosides [Senna Plus] 1 tab PO BID tablet 10/13/20 [Rx] Pantoprazole [ProTONIX] 40 mg PO BIDAC #60 tab.cr 10/13/20 [Rx] Acetaminophen/HYDROcodone [[place] 325-5 MG] 1 tab PO Q6H PRN 11/25/20 [History] Albuterol Sulfate 0.63 mg IH QID PRN 11/25/20 [History] Amphetamine/Dextroamphetamine [Adderall XR] 20 mg PO DAILY 11/25/20 [History] Cyclobenzaprine [Flexeril] 10 mg PO TID 11/25/20 [History] DULoxetine [Cymbalta] 90 mg PO DAILY 11/25/20 [History] Dextroamphetamine/Amphetamine [Adderall 10 mg Tablet] 10 mg PO BID 11/25/20 [History] Magnesium Oxide 400 mg PO DAILY 11/25/20 [History] Sucralfate [Carafate] 1 gm PO TIDAC PRN 11/25/20 [History] lisinopriL [Lisinopril] 10 mg PO DAILY 11/25/20 [History] Past Medical History HEENT 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 (See Below) Other HEENT History: presbyopia; hypermetropia Cardiovascular History: Reports: Hypertension Respiratory 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 (See Below) Other Respiratory History: sarcoidosis Gastrointestinal History: Reports: Chronic Constipation, Colon Polyp Genitourinary History: Reports: Pyelonephritis, Renal Calculus 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) Other OB/BYN History: 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 Musculoskeletal History: Reports: Arthritis, Fibromyalgia, Other (See Below) Other Musculoskeletal History: sciatica; arthralgia of both hands Psychiatric History: Reports: ADHD, Anxiety, Depression, Other (See Below) Other Psychiatric History: tobacco use Immunologic 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 (See Below) Other Immunologic History: sarcoidosis Dermatologic 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 (See Below) Other Dermatologic History: acne; nevus congenital - Infectious Disease History Infectious Disease History: Reports: Chicken Pox - Past Surgical History Respiratory Surgical History: Reports: Lung Biopsies GI Surgical History: Reports: Colonoscopy, Other (See Below) Other GI Surgeries/Procedures: hemorrhoidectomy Female Surgical History: Reports: Lithotripsy/ESWL, Tubal Ligation, Other (See Below) Other Female Surgeries/Procedures: cyrosurger; colposcopy; Musculoskeletal Surgical History: Reports: Carpal Tunnel Social & Family History - Tobacco Use Tobacco Use Status *Q: Current Every Day Tobacco User Years of Tobacco use: 30 Packs/Tins Daily: 1 H&P Review of Systems - Review of Systems: Review Of Systems: See Below General: Reports: Other (hot flashes (chronic)) HEENT: Reports: No Symptoms Pulmonary: Reports: Shortness of Breath, Wheezing, Cough Cardiovascular: Reports: Chest Pain (chest wall) Gastrointestinal: Reports: No Symptoms Genitourinary: Reports: Incontinence (stress - coughing making it worse) Skin: Reports: No Symptoms Psychiatric: Reports: No Symptoms Neurological: Reports: No Symptoms Hematologic/Lymphatic: Reports: No Symptoms Exam - Exam Exam: See Below - Vital Signs Vital Signs: Last Vital Signs Temp 98.1 F 11/25/20 14:19 Pulse 105 H 11/25/20 14:19 Resp 16 11/25/20 14:19 BP 128/73 11/25/20 14:19 Pulse Ox 96 11/25/20 14:19 Weight: 145 lb - Exam General: Alert, Oriented, Cooperative HEENT: Conjunctiva Clear, EOMI, Mucosa Moist & [place] Neck: Supple, Trachea Midline Lungs: Normal Respiratory Effort, Decreased Breath Sounds (lung sounds are distant), Wheezing (end inspiratory and end-expiratory) Cardiovascular: Regular Rhythm, Tachycardia GI/Abdominal Exam: Normal Bowel Sounds, Soft, Non-Tender Back Exam: Normal Inspection Extremities: Normal Inspection, Non-Tender, No Pedal Edema Skin: Warm, Dry Neurological: Normal Gait, Normal Speech Neuro Extensive - Mental Status: Alert, Oriented x3, Normal Mood/Affect Psychiatric: Alert, Normal Affect, Normal Mood - Patient Data Lab Results Last 24 hrs: Laboratory Results - last 24 hr 11/25/20 11/25/20 11/25/20 Range/Units 13:16 13:16 13:16 WBC 13.2 H (4.0-10.0) x10^3/uL RBC 4.31 (4.00-5.50) x10^6/uL Hgb 14.0 (12.0-16.0) g/dL Hct 41.4 (33.0-47.0) % MCV 96.1 H (78.0-93.0) fL MCH 32.5 H (26.0-32.0) pg MCHC 33.8 (32.0-36.0) g/dL RDW Coeff of Jen 13.2 (10.0-15.0) % Plt Count 361 (130-400) x10^3/uL Neut % (Auto) 91.4 H (50.0-80.0) % Lymph % (Auto) 6.9 L (25.0-50.0) % [place] % (Auto) 1.6 L (2.0-11.0) % Eos % (Auto) 0.0 (0.0-4.0) % Baso % (Auto) 0.1 L (0.2-1.2) % Sodium 139 (136-145) mmol/L Potassium 4.2 (3.5-5.1) mmol/L Chloride 102 (98-107) mmol/L Carbon Dioxide 28 (21-32) mmol/L Anion Gap 13.2 (5-15) mmol/L BUN 14 (7-18) mg/dL Creatinine 0.9 (0.55-1.02) mg/dL Est Cr Clr Drug Dosing 61.86 mL/min Estimated GFR (MDRD) > 60 Glucose 156 H (74-106) mg/dL Lactic Acid 2.7 H* (0.4-2.0) mmol/L Calcium 9.5 (8.5-10.1) mg/dL Corrected Calcium 10.14 H (8.5-10.1) mg/dL Total Bilirubin 0.2 (0.2-1.0) mg/dL AST 14 L (15-37) U/L ALT 20 (14-59) U/L Alkaline Phosphatase 122 H (46-116) U/L Troponin I High Sens < 4 (<=51) ng/L Total Protein 7.3 (6.4-8.2) g/dL Albumin 3.2 L (3.4-5.0) g/dL Globulin 4.1 Albumin/Globulin Ratio 0.78 Result Diagrams: 11/25/20 13:16 11/25/20 13:16 Sepsis Event Note - Evaluation Sepsis Screening Result: Severe Sepsis Risk - Focused Exam Vital Signs: Vital Signs Temp Temp Pulse Resp BP Pulse Ox 11/25/20 14:19 98.1 F 105 H 16 128/73 96 11/25/20 14:01 110 H 20 137/92 H 93 L 11/25/20 12:40 98.2 F 123 H 16 153/97 H 94 L - Problem List (1) Lactic acidosis SNOMED Code(s): 13043615 ICD Code: E87.2 - ACIDOSIS Status: Acute Current Visit: Yes (2) Acute bronchiolitis SNOMED Code(s): 5661143 ICD Code: J21.9 - ACUTE BRONCHIOLITIS, UNSPECIFIED Status: Acute Current Visit: No (3) Atypical chest pain SNOMED Code(s): 245498133 ICD Code: R07.89 - OTHER CHEST PAIN Status: Acute Current Visit: No (4) Bronchitis SNOMED Code(s): 21027415 ICD Code: J40 - BRONCHITIS, NOT SPECIFIED ACUTE OR CHRONIC Status: Acute Current Visit: No Problem List Initiated/Reviewed/Updated: Yes Orders Last 24hrs: Active Orders 24 hr Category Date Time Status Patient Status [ADT] Routine ADT 11/25/20 14:11 Active RT Aerosol Therapy [RC] ASDIRECTED Care 11/25/20 14:20 Active Sodium Chloride 0.9% [Normal Saline] 1,000 ml Med 11/25/20 14:45 Active IV ASDIRECTED Medication Orders Sodium Chloride (Normal Saline) 1,000 mls @ 250 mls/hr IV ASDIRECTED CJ Last Admin: 11/25/20 14:49 Dose: 250 mls/hr Documented by: DEPRROW Assessment/Plan Comment:: Bronchitis vs Bronchiolitis ?COPD exacerbation -Symptoms for 2-3 weeks now -Patient with some good response to DuoNeb in the ER -PFTs reviewed from 10/24/2020, patient has a restrictive lung disease per the study. This is less likely to be a COPD exacerbation -Lung Xray negative for consolidation/pneumonia -LA 2.7 Plan: -Azithromycin IV for 5 days -DuoNeb scheduled -Prednisone 60mg daily -Cough suppressants -Repeat CBC in the am -IVF at 250mL/hr for 1L -Repeat LA per protocol Atypical Chest Pain: Chostochondritis -Secondary to persistent cough Plan: -Tylenol 1000mg TID -Toradol for mod-severe pain, dilaudid for breakthrough -OK for heating pad or ice (whichever patient prefers) Chronic: -Hypertension: continue lisinopril 10 mg daily -Anxiety/depression: Continue Cymbalta 90 mg daily, hydroxyzine 50 mg when necessary -Fibromyalgia: Continue Cymbalta as above as well as her Neurontin 100 mg in the morning and at noon, 300 mg at bedtime, Flexeril 10mg TID. 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 Diet: regular DVT: Lovenox SQ CODE: Full Disposition: Good. Admitting for treatment of bronchitis/COPD exacerbation in the setting of restrictive lung disease due to sarcoidosis. Patient did have a lactic acid elevation in the ER and is requiring IV fluid rehydration. She does have some chronic pain syndrome with acute exacerbation of her pain at this time. We will treat her wheezing/bronchitis picture with azithromycin, scheduled DuoNeb, and steroids. IV fluids with recheck of lactic acid. Anticipated 2-3 days for turnaround. - Mortality Measure Prognosis:: Good
[2020-11-25] MEDS ORDERED: hydrOXYzine HCl 25 MG Tab PO PRN (15:40)
[2020-11-25] MEDS ORDERED: Sucralfate Suspension 1 GM/10 ML Cup PO PRN (15:40)
[2020-11-25] MEDS ORDERED: Albuterol/Ipratropium 3.0-0.5 MG/3 ML Neb Soln NEB SCH (15:45)
[2020-11-25] MEDS ORDERED: guaiFENesin 100 MG/5 ML Soln 10 ML UD Cup PO SCH (15:45)
[2020-11-25] MEDS: Nicotine 14 MG/24 Hr Patch TRDERM SCH (16:08)
[2020-11-25] MEDS: Azithromycin 500 MG in Sodium Chloride 0.9% 250 ML IV SCH (16:08)
[2020-11-25] MEDS: Pantoprazole 40 MG Tab.CR PO SCH (16:29)
[2020-11-25] MEDS: HYDROmorphone 0.5 MG/0.5 ML Syringe IVPUSH PRN ×2 (16:29→21:10)
[2020-11-25] MEDS: Ondansetron 4 MG Tab.DIS PO PRN (17:31)
[2020-11-25] MEDS: Ketorolac 30 MG/ML SDV IVPUSH PRN (19:56)
[2020-11-25] MEDS: guaiFENesin 100 MG/5 ML Soln 10 ML UD Cup PO SCH ×2 (19:57→23:27)
[2020-11-25] MEDS: Cyclobenzaprine 10 MG Tab PO SCH (19:58)
[2020-11-25] MEDS: Acetaminophen 500 MG Tab PO SCH (19:58)
[2020-11-25] MEDS: Albuterol/Ipratropium 3.0-0.5 MG/3 ML Neb Soln NEB SCH ×2 (19:59→23:27)
[2020-11-25] MEDS: Gabapentin 300 MG Cap PO SCH (19:59)
[2020-11-25] MEDS: Sodium Chloride 0.9% 1,000 ML IV SCH (22:21)
[2020-11-26] MEDS: guaiFENesin 100 MG/5 ML Soln 10 ML UD Cup PO SCH ×5 (04:27→20:27)
[2020-11-26] MEDS: HYDROmorphone 0.5 MG/0.5 ML Syringe IVPUSH PRN ×4 (04:27→21:30)
[2020-11-26] MEDS: Albuterol/Ipratropium 3.0-0.5 MG/3 ML Neb Soln NEB SCH ×6 (04:28→23:13)
[2020-11-26] MEDS: Pantoprazole 40 MG Tab.CR PO SCH ×2 (06:07→17:21)
[2020-11-26] MEDS: Sodium Chloride 0.9% 1,000 ML IV SCH ×3 (06:07→21:29)
[2020-11-26] MEDS ORDERED: Non-Formulary Medication 1 Each (Amphetamine/Dextroamphetamine [Adderall Xr] 20 MG Cap.Er) PO SCH (08:00)
[2020-11-26] MEDS: Azithromycin 500 MG in Sodium Chloride 0.9% 250 ML IV SCH (08:01)
[2020-11-26] MEDS: Ketorolac 30 MG/ML SDV IVPUSH PRN ×2 (08:04→15:10)
[2020-11-26] MEDS: Magnesium Oxide 400 MG Tab PO SCH (08:05)
[2020-11-26] MEDS: Gabapentin 100 MG Cap PO SCH ×2 (08:05→11:37)
[2020-11-26] MEDS: Ondansetron 4 MG Tab.DIS PO PRN ×2 (08:05→18:16)
[2020-11-26] MEDS: Acetaminophen 500 MG Tab PO SCH ×3 (08:05→20:27)
[2020-11-26] MEDS: Cyclobenzaprine 10 MG Tab PO SCH ×3 (08:05→20:27)
[2020-11-26] MEDS: predniSONE 20 MG Tab PO SCH (08:05)
[2020-11-26] MEDS: DULoxetine 30 MG Cap PO SCH (08:05)
[2020-11-26] MEDS: Enoxaparin 40 MG/0.4 ML Syringe SUBCUT SCH (08:06)
[2020-11-26] MEDS: Lisinopril 10 MG Tab PO SCH (08:07)
[2020-11-26] MEDS: Nicotine 14 MG/24 Hr Patch TRDERM SCH (08:08)
[2020-11-26 08:18] LABS: ANION GAP 12.7 mmol/L (5-15); CHLORIDE,CL 111 mmol/L (98-107); SODIUM,NA 146 mmol/L (136-145)
--- NOTE | 2020-11-26 10:34 | PCM.PN ---
- General Info Date of Service: 11/26/20 Admission Dx/Problem (Free Text): Admission Diagnosis/Problem Admission Diagnosis/Problem Bronchitis, Restrictive Airway Disease, ?COPD Subjective Update: Rita is a 50yoF who is HD #2 for treatment of SOB/wheezing and atypical CP. Overnight her breathing status has improved: less wheezing and SOB. She continues to have the intermittent cough and associated CP. Has been more nauseas this am; did have 1 episode of emesis last evening (liquid, bile/brown). OVerall uncomfortable and not feeling well. Vitally she is stable, labs with leukocytosis (likely steroid-induced) and normal electrolytes. LA trending down and ESR normal. - Review of Systems General: Reports: Weakness, Fatigue HEENT: Reports: No Symptoms Pulmonary: Reports: Shortness of Breath, Wheezing (improving) Cardiovascular: Reports: Chest Pain (chest wall) Gastrointestinal: Reports: Abdominal Pain (RUQ), Nausea, Vomiting Genitourinary: Reports: No Symptoms Musculoskeletal: Reports: No Symptoms Skin: Reports: No Symptoms Neurological: Reports: No Symptoms - Patient Data Vitals - Most Recent: Last Vital Signs Temp 97.7 F 11/26/20 05:55 Pulse 113 H 11/26/20 07:23 Resp 18 11/26/20 05:55 BP 128/76 11/26/20 08:07 Pulse Ox 97 11/26/20 07:25 Weight - Most Recent: 157 lb I&O - Last 24 Hours: Intake & Output 11/25/20 11/26/20 11/26/20 22:59 06:59 14:59 Intake Total 580 260 Output Total 650 200 Balance -70 -200 260 Lab Results Last 24 Hours: Laboratory Results - last 24 hr 11/25/20 11/25/20 11/25/20 Range/Units 13:16 13:16 13:16 WBC 13.2 H (4.0-10.0) x10^3/uL RBC 4.31 (4.00-5.50) x10^6/uL Hgb 14.0 (12.0-16.0) g/dL Hct 41.4 (33.0-47.0) % MCV 96.1 H (78.0-93.0) fL MCH 32.5 H (26.0-32.0) pg MCHC 33.8 (32.0-36.0) g/dL RDW Coeff of Jen 13.2 (10.0-15.0) % Plt Count 361 (130-400) x10^3/uL Neut % (Auto) 91.4 H (50.0-80.0) % Lymph % (Auto) 6.9 L (25.0-50.0) % [place] % (Auto) 1.6 L (2.0-11.0) % Eos % (Auto) 0.0 (0.0-4.0) % Baso % (Auto) 0.1 L (0.2-1.2) % ESR (0-20) mm/hr Sodium 139 (136-145) mmol/L Potassium 4.2 (3.5-5.1) mmol/L Chloride 102 (98-107) mmol/L Carbon Dioxide 28 (21-32) mmol/L Anion Gap 13.2 (5-15) mmol/L BUN 14 (7-18) mg/dL Creatinine 0.9 (0.55-1.02) mg/dL Est Cr Clr Drug Dosing 61.86 mL/min Estimated GFR (MDRD) > 60 Glucose 156 H (74-106) mg/dL Lactic Acid 2.7 H* (0.4-2.0) mmol/L Calcium 9.5 (8.5-10.1) mg/dL Corrected Calcium 10.14 H (8.5-10.1) mg/dL Total Bilirubin 0.2 (0.2-1.0) mg/dL AST 14 L (15-37) U/L ALT 20 (14-59) U/L Alkaline Phosphatase 122 H (46-116) U/L Troponin I High Sens < 4 (<=51) ng/L Total Protein 7.3 (6.4-8.2) g/dL Albumin 3.2 L (3.4-5.0) g/dL Globulin 4.1 Albumin/Globulin Ratio 0.78 11/25/20 11/26/20 11/26/20 Range/Units 21:08 07:35 07:35 WBC 19.3 H (4.0-10.0) x10^3/uL RBC 3.74 L (4.00-5.50) x10^6/uL Hgb 12.0 D (12.0-16.0) g/dL Hct 37.3 (33.0-47.0) % MCV 99.7 H D (78.0-93.0) fL MCH 32.1 H (26.0-32.0) pg MCHC 32.2 (32.0-36.0) g/dL RDW Coeff of Jen 13.7 (10.0-15.0) % Plt Count 327 (130-400) x10^3/uL Neut % (Auto) 80.3 H (50.0-80.0) % Lymph % (Auto) 13.7 L (25.0-50.0) % [place] % (Auto) 5.5 (2.0-11.0) % Eos % (Auto) 0.3 (0.0-4.0) % Baso % (Auto) 0.2 (0.2-1.2) % ESR (0-20) mm/hr Sodium 146 H (136-145) mmol/L Potassium 3.7 (3.5-5.1) mmol/L Chloride 111 H (98-107) mmol/L Carbon Dioxide 26 (21-32) mmol/L Anion Gap 12.7 (5-15) mmol/L BUN 16 (7-18) mg/dL Creatinine 0.8 (0.55-1.02) mg/dL Est Cr Clr Drug Dosing 69.59 mL/min Estimated GFR (MDRD) > 60 Glucose 127 H (74-106) mg/dL Lactic Acid 2.5 H* (0.4-2.0) mmol/L Calcium 8.3 L (8.5-10.1) mg/dL Corrected Calcium (8.5-10.1) mg/dL Total Bilirubin (0.2-1.0) mg/dL AST (15-37) U/L ALT (14-59) U/L Alkaline Phosphatase (46-116) U/L Troponin I High Sens (<=51) ng/L Total Protein (6.4-8.2) g/dL Albumin (3.4-5.0) g/dL Globulin Albumin/Globulin Ratio 11/26/20 11/26/20 Range/Units 07:35 07:35 WBC (4.0-10.0) x10^3/uL RBC (4.00-5.50) x10^6/uL Hgb (12.0-16.0) g/dL Hct (33.0-47.0) % MCV (78.0-93.0) fL MCH (26.0-32.0) pg MCHC (32.0-36.0) g/dL RDW Coeff of Jen (10.0-15.0) % Plt Count (130-400) x10^3/uL Neut % (Auto) (50.0-80.0) % Lymph % (Auto) (25.0-50.0) % [place] % (Auto) (2.0-11.0) % Eos % (Auto) (0.0-4.0) % Baso % (Auto) (0.2-1.2) % ESR 20 (0-20) mm/hr Sodium (136-145) mmol/L Potassium (3.5-5.1) mmol/L Chloride (98-107) mmol/L Carbon Dioxide (21-32) mmol/L Anion Gap (5-15) mmol/L BUN (7-18) mg/dL Creatinine (0.55-1.02) mg/dL Est Cr Clr Drug Dosing mL/min Estimated GFR (MDRD) Glucose (74-106) mg/dL Lactic Acid 2.2 H* (0.4-2.0) mmol/L Calcium (8.5-10.1) mg/dL Corrected Calcium (8.5-10.1) mg/dL Total Bilirubin (0.2-1.0) mg/dL AST (15-37) U/L ALT (14-59) U/L Alkaline Phosphatase (46-116) U/L Troponin I High Sens (<=51) ng/L Total Protein (6.4-8.2) g/dL Albumin (3.4-5.0) g/dL Globulin Albumin/Globulin Ratio Med Orders - Current: Current Medications Acetaminophen (Acetaminophen 500 Mg Tab) 1,000 mg PO TID [facility] Last Admin: 11/26/20 08:05 Dose: 1,000 mg Documented by: Albuterol/Ipratropium (Albuterol/Ipratropium 3.0-0.5 Mg/3 Ml Neb Soln) 3 ml NEB Q4H [facility] Last Admin: 11/26/20 07:21 Dose: 3 ml Documented by: Cyclobenzaprine HCl (Cyclobenzaprine 10 Mg Tab) 10 mg PO TID [facility] Last Admin: 11/26/20 08:05 Dose: 10 mg Documented by: Duloxetine HCl (Duloxetine 30 Mg Cap) 90 mg PO DAILY [facility] Last Admin: 11/26/20 08:05 Dose: 90 mg Documented by: Enoxaparin Sodium (Enoxaparin 40 Mg/0.4 Ml Syringe) 40 mg SUBCUT DAILY [facility] Last Admin: 11/26/20 08:06 Dose: 40 mg Documented by: Gabapentin (Gabapentin 100 Mg Cap) 100 mg PO 0800,1200 [facility] Last Admin: 11/26/20 08:05 Dose: 100 mg Documented by: Gabapentin (Gabapentin 300 Mg Cap) 300 mg PO BEDTIME [facility] Last Admin: 11/25/20 19:59 Dose: 300 mg Documented by: Guaifenesin (Guaifenesin 100 Mg/5 Ml Soln 10 Ml Ud Cup) 200 mg PO Q4H [facility] Last Admin: 11/26/20 08:06 Dose: 200 mg Documented by: Hydromorphone HCl (Hydromorphone 0.5 Mg/0.5 Ml Syringe) 0.25 mg IVPUSH Q2H PRN PRN Reason: Breakthrough Pain Last Admin: 11/26/20 04:27 Dose: 0.25 mg Documented by: Hydroxyzine HCl (Hydroxyzine Hcl 25 Mg Tab) 50 mg PO QID PRN PRN Reason: Anxiety Last Admin: 11/25/20 19:58 Dose: 50 mg Documented by: Azithromycin 500 mg/ Sodium (Chloride) 250 mls @ 250 mls/hr IV DAILY [facility] Last Admin: 11/26/20 08:01 Dose: 250 mls/hr Documented by: Sodium Chloride (Normal Saline) 1,000 mls @ 125 mls/hr IV ASDIRECTED [facility] Last Admin: 11/26/20 06:07 Dose: 125 mls/hr Documented by: Ketorolac Tromethamine (Ketorolac 30 Mg/Ml Sdv) 30 mg IVPUSH Q6H PRN PRN Reason: Pain (moderate 4-6) Last Admin: 11/26/20 08:04 Dose: 30 mg Documented by: Lisinopril (Lisinopril 10 Mg Tab) 10 mg PO DAILY [facility] Last Admin: 11/26/20 08:07 Dose: 10 mg Documented by: Magnesium Oxide (Magnesium Oxide 400 Mg Tab) 400 mg PO DAILY [facility] Last Admin: 11/26/20 08:05 Dose: 400 mg Documented by: Nicotine (Nicotine 14 Mg/24 Hr Patch) 14 mg TRDERM DAILY [facility] Last Admin: 11/26/20 08:08 Dose: 14 mg Documented by: Non-Formulary Medication (Amphetamine/Dextroamphetamine [Adderall Xr]) 20 mg PO DAILY [facility] Non-Formulary Medication (Dextroamphetamine/Amphetamine [Adderall 10 Mg Tablet]) 10 mg PO BID [facility] Ondansetron HCl (Ondansetron 4 Mg Tab.Dis) 4 mg PO Q4H PRN PRN Reason: nausea, able to take PO Last Admin: 11/26/20 08:05 Dose: 4 mg Documented by: Pantoprazole Sodium (Pantoprazole 40 Mg Tab.Cr) 40 mg PO BIDAC [facility] Last Admin: 11/26/20 06:07 Dose: 40 mg Documented by: Prednisone (Prednisone 20 Mg Tab) 40 mg PO WITHBREAKFAST [facility] Last Admin: 11/26/20 08:05 Dose: 40 mg Documented by: Senna/Docusate Sodium (Docusate Sodium/Sennosides 50-8.6 Mg Tab) 1 tab PO BID [facility] Last Admin: 11/26/20 08:05 Dose: 1 tab Documented by: Sucralfate (Sucralfate Suspension 1 Gm/10 Ml Cup) 1 gm PO TIDAC PRN PRN Reason: Pain Discontinued Medications Albuterol/Ipratropium (Albuterol/Ipratropium 3.0-0.5 Mg/3 Ml Neb Soln) 3 ml NEB ONETIME ONE Stop: 11/25/20 14:20 Last Admin: 11/25/20 14:25 Dose: 3 ml Documented by: Albuterol/Ipratropium (Albuterol/Ipratropium 3.0-0.5 Mg/3 Ml Neb Soln) 3 ml NEB Q4HRRT [facility] Last Admin: 11/25/20 16:01 Dose: 3 ml Documented by: Guaifenesin (Guaifenesin 100 Mg/5 Ml Soln 10 Ml Ud Cup) 200 mg PO Q4H [facility] Last Admin: 11/25/20 15:58 Dose: 200 mg Documented by: Hydromorphone HCl (Hydromorphone 1 Mg/Ml Syringe) 1 mg IVPUSH ONETIME ONE Stop: 11/25/20 12:39 Last Admin: 11/25/20 12:47 Dose: 1 mg Documented by: Sodium Chloride (Normal Saline) 1,000 mls @ 125 mls/hr IV ASDIRECTED [facility] Last Admin: 11/25/20 14:49 Dose: 250 mls/hr Documented by: Ketorolac Tromethamine (Ketorolac 15 Mg/Ml Sdv) 15 mg IVPUSH ONETIME ONE Stop: 11/25/20 12:40 Last Admin: 11/25/20 12:47 Dose: 15 mg Documented by: Morphine Sulfate (Morphine 4 Mg/Ml Syringe) 4 mg IVPUSH ONETIME ONE Stop: 11/25/20 13:48 Last Admin: 11/25/20 14:00 Dose: 4 mg Documented by: - Exam General: Alert, Oriented, Mild Distress (due to pain/discomfort) HEENT: Pupils Equal, Mucous Membr. Moist/[place] Neck: Supple Lungs: Wheezing (improved significantly from yesterday) Cardiovascular: Regular Rate, Regular Rhythm GI/Abdominal Exam: Normal Bowel Sounds, Soft, Tender (RUQ/under the ribs) Extremities: Normal Inspection, Non-Tender, No Pedal Edema Skin: Warm, Dry Psy/Mental Status: Alert, Normal Affect - Patient Data Lab Results Last 24 hrs: Laboratory Results - last 24 hr 11/25/20 11/25/20 11/25/20 Range/Units 13:16 13:16 13:16 WBC 13.2 H (4.0-10.0) x10^3/uL RBC 4.31 (4.00-5.50) x10^6/uL Hgb 14.0 (12.0-16.0) g/dL Hct 41.4 (33.0-47.0) % MCV 96.1 H (78.0-93.0) fL MCH 32.5 H (26.0-32.0) pg MCHC 33.8 (32.0-36.0) g/dL RDW Coeff of Jen 13.2 (10.0-15.0) % Plt Count 361 (130-400) x10^3/uL Neut % (Auto) 91.4 H (50.0-80.0) % Lymph % (Auto) 6.9 L (25.0-50.0) % [place] % (Auto) 1.6 L (2.0-11.0) % Eos % (Auto) 0.0 (0.0-4.0) % Baso % (Auto) 0.1 L (0.2-1.2) % ESR (0-20) mm/hr Sodium 139 (136-145) mmol/L Potassium 4.2 (3.5-5.1) mmol/L Chloride 102 (98-107) mmol/L Carbon Dioxide 28 (21-32) mmol/L Anion Gap 13.2 (5-15) mmol/L BUN 14 (7-18) mg/dL Creatinine 0.9 (0.55-1.02) mg/dL Est Cr Clr Drug Dosing 61.86 mL/min Estimated GFR (MDRD) > 60 Glucose 156 H (74-106) mg/dL Lactic Acid 2.7 H* (0.4-2.0) mmol/L Calcium 9.5 (8.5-10.1) mg/dL Corrected Calcium 10.14 H (8.5-10.1) mg/dL Total Bilirubin 0.2 (0.2-1.0) mg/dL AST 14 L (15-37) U/L ALT 20 (14-59) U/L Alkaline Phosphatase 122 H (46-116) U/L Troponin I High Sens < 4 (<=51) ng/L Total Protein 7.3 (6.4-8.2) g/dL Albumin 3.2 L (3.4-5.0) g/dL Globulin 4.1 Albumin/Globulin Ratio 0.78 11/25/20 11/26/20 11/26/20 Range/Units 21:08 07:35 07:35 WBC 19.3 H (4.0-10.0) x10^3/uL RBC 3.74 L (4.00-5.50) x10^6/uL Hgb 12.0 D (12.0-16.0) g/dL Hct 37.3 (33.0-47.0) % MCV 99.7 H D (78.0-93.0) fL MCH 32.1 H (26.0-32.0) pg MCHC 32.2 (32.0-36.0) g/dL RDW Coeff of Jen 13.7 (10.0-15.0) % Plt Count 327 (130-400) x10^3/uL Neut % (Auto) 80.3 H (50.0-80.0) % Lymph % (Auto) 13.7 L (25.0-50.0) % [place] % (Auto) 5.5 (2.0-11.0) % Eos % (Auto) 0.3 (0.0-4.0) % Baso % (Auto) 0.2 (0.2-1.2) % ESR (0-20) mm/hr Sodium 146 H (136-145) mmol/L Potassium 3.7 (3.5-5.1) mmol/L Chloride 111 H (98-107) mmol/L Carbon Dioxide 26 (21-32) mmol/L Anion Gap 12.7 (5-15) mmol/L BUN 16 (7-18) mg/dL Creatinine 0.8 (0.55-1.02) mg/dL Est Cr Clr Drug Dosing 69.59 mL/min Estimated GFR (MDRD) > 60 Glucose 127 H (74-106) mg/dL Lactic Acid 2.5 H* (0.4-2.0) mmol/L Calcium 8.3 L (8.5-10.1) mg/dL Corrected Calcium (8.5-10.1) mg/dL Total Bilirubin (0.2-1.0) mg/dL AST (15-37) U/L ALT (14-59) U/L Alkaline Phosphatase (46-116) U/L Troponin I High Sens (<=51) ng/L Total Protein (6.4-8.2) g/dL Albumin (3.4-5.0) g/dL Globulin Albumin/Globulin Ratio 11/26/20 11/26/20 Range/Units 07:35 07:35 WBC (4.0-10.0) x10^3/uL RBC (4.00-5.50) x10^6/uL Hgb (12.0-16.0) g/dL Hct (33.0-47.0) % MCV (78.0-93.0) fL MCH (26.0-32.0) pg MCHC (32.0-36.0) g/dL RDW Coeff of Jen (10.0-15.0) % Plt Count (130-400) x10^3/uL Neut % (Auto) (50.0-80.0) % Lymph % (Auto) (25.0-50.0) % [place] % (Auto) (2.0-11.0) % Eos % (Auto) (0.0-4.0) % Baso % (Auto) (0.2-1.2) % ESR 20 (0-20) mm/hr Sodium (136-145) mmol/L Potassium (3.5-5.1) mmol/L Chloride (98-107) mmol/L Carbon Dioxide (21-32) mmol/L Anion Gap (5-15) mmol/L BUN (7-18) mg/dL Creatinine (0.55-1.02) mg/dL Est Cr Clr Drug Dosing mL/min Estimated GFR (MDRD) Glucose (74-106) mg/dL Lactic Acid 2.2 H* (0.4-2.0) mmol/L Calcium (8.5-10.1) mg/dL Corrected Calcium (8.5-10.1) mg/dL Total Bilirubin (0.2-1.0) mg/dL AST (15-37) U/L ALT (14-59) U/L Alkaline Phosphatase (46-116) U/L Troponin I High Sens (<=51) ng/L Total Protein (6.4-8.2) g/dL Albumin (3.4-5.0) g/dL Globulin Albumin/Globulin Ratio Result Diagrams: 11/26/20 07:35 11/26/20 07:35 Sepsis Event Note - Evaluation Sepsis Screening Result: No Definite Risk - Focused Exam Vital Signs: Vital Signs Temp Pulse Resp BP BP Pulse Ox Pulse Ox 11/26/20 08:07 128/76 11/26/20 07:25 97 11/26/20 07:23 113 H 11/26/20 06:00 95 11/26/20 05:55 97.7 F 89 18 128/76 95 11/26/20 02:00 97.9 F 91 18 130/77 96 - Problem List & Annotations (1) Bronchitis SNOMED Code(s): 80420093 Code(s): J40 - BRONCHITIS, NOT SPECIFIED ACUTE OR CHRONIC Status: Acute Current Visit: No (2) Lactic acidosis SNOMED Code(s): 80865811 Code(s): E87.2 - ACIDOSIS Status: Acute Current Visit: Yes (3) Atypical chest pain SNOMED Code(s): 901502940 Code(s): R07.89 - OTHER CHEST PAIN Status: Acute Current Visit: No - Problem List Review Problem List Initiated/Reviewed/Updated: Yes - My Orders Last 24 Hours: My Active Orders 11/25/20 15:36 Ambulate [RC] 08,20 Bedrest Bathroom Privileges [RC] 08,20 Oxygen Therapy [RC] .PRN VTE/DVT Education [RC] PER UNIT ROUTINE Vital Signs [RC] 02,06,10,14,18,22 HYDROmorphone [Dilaudid] 0.25 mg IVPUSH Q2H PRN Ondansetron [Zofran ODT] 4 mg PO Q4H PRN Resuscitation Status Routine 11/25/20 15:37 Pulse Oximetry [RC] 02,06,10,14,18,22 11/25/20 15:39 RT Aerosol Therapy [RC] 00,04,08,12,16,20 11/25/20 15:40 Sucralfate [Carafate] 1 gm PO TIDAC PRN hydrOXYzine HCL [Atarax] 50 mg PO QID PRN 11/25/20 15:45 Nicotine [Habitrol] 14 mg TRDERM DAILY 11/25/20 15:47 Dietary Supplements [RC] BIDMEALS 11/25/20 16:00 Azithromycin [Zithromax] 500 mg Sodium Chloride 0.9% [Normal Saline (AdvBag)] 250 ml IV DAILY 11/25/20 17:00 Pantoprazole [ProTONIX] 40 mg PO BIDAC 11/25/20 Dinner Regular Diet [DIET] 11/25/20 18:45 Ketorolac [Toradol] 30 mg IVPUSH Q6H PRN 11/25/20 20:00 Acetaminophen [Tylenol Extra Strength] 1,000 mg PO TID Albuterol/Ipratropium [DuoNeb 3.0-0.5 MG/3 ML] 3 ml NEB Q4H Cyclobenzaprine [Flexeril] 10 mg PO TID Docusate Sodium/Sennosides [Senna Plus] 1 tab PO BID Gabapentin [Neurontin] 300 mg PO BEDTIME guaiFENesin [Robitussin] 200 mg PO Q4H 11/26/20 08:00 Amphetamine/Dextroamphetamine [Adderall XR] 20 mg PO DAILY DULoxetine [Cymbalta] 90 mg PO DAILY Dextroamphetamine/Amphetamine [Adderall 10 mg Tablet] 10 mg PO BID Enoxaparin [Lovenox] 40 mg SUBCUT DAILY Gabapentin [Neurontin] 100 mg PO 0800,1200 Magnesium Oxide 400 mg PO DAILY lisinopriL [Prinivil] 10 mg PO DAILY predniSONE 40 mg PO WITHBREAKFAST 11/26/20 09:27 REFLEX LACTIC ACID YES OR NO [CHEM] Routine - Plan Plan:: Rita is a 50yoF who is HD #2 for treatment of bronchitis/COPD exacerbation in the setting of 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 Bronchitis ?COPD exacerbation -Symptoms for 2-3 weeks now -Patient with some good response to DuoNeb in the ER -PFTs reviewed from 10/24/2020, patient has a restrictive lung disease per the study. This is less likely to be a COPD exacerbation -Lung Xray negative for consolidation/pneumonia -LA improving (2.2 today) Plan: -Azithromycin IV for 5 days -DuoNeb scheduled -Prednisone 60mg daily -Cough suppressants -Repeat CBC in the am -IVF at 100mL/hr -Incentive Spirometry -Repeat LA per protocol Atypical Chest Pain: Chostochondritis -Secondary to persistent cough Plan: -Tylenol 1000mg TID -Toradol for mod-severe pain, dilaudid for breakthrough -OK for heating pad or ice (whichever patient prefers) Nausea/epigastric pain - Patient has long history of epigastric pain, esophagitis Plan: - Zofran PO available, will also offer compazine if no response to zofran - Continue PPI - Edwards diet and plenty of fluids encouraged Chronic: -Hypertension: continue lisinopril 10 mg daily -Anxiety/depression: Continue Cymbalta 90 mg daily, hydroxyzine 50 mg when necessary -Fibromyalgia: Continue Cymbalta as above as well as her Neurontin 100 mg in the morning and at noon, 300 mg at bedtime, Flexeril 10mg TID. 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 -Tobacco used disorder: patches available Diet: regular DVT: Lovenox SQ CODE: Full Disposition: Good. LA trending down. Breathing improved. Will continue with IV antibiotics. Upping treatment for the nausea. Will continue to monitor the MSK pain.
[2020-11-26] MEDS ORDERED: Prochlorperazine 10 MG/2 ML SDV IV ONE (10:35)
[2020-11-26] MEDS ORDERED: Sodium Chloride 0.9% 1,000 ML IV SCH ×3 (13:45→22:30)
[2020-11-26 19:27] LABS: CHLORIDE,CL 112 mmol/L (98-107); SODIUM,NA 144 mmol/L (136-145)
[2020-11-26 19:37] LABS: ANION GAP 13.4 mmol/L (5-15)
[2020-11-26] MEDS: Gabapentin 300 MG Cap PO SCH (20:27)
[2020-11-26] MEDS ORDERED: Sodium Chloride 0.9% 500 ML IV ONE (22:24)
[2020-11-27] MEDS: guaiFENesin 100 MG/5 ML Soln 10 ML UD Cup PO SCH ×7 (00:20→22:59)
[2020-11-27] MEDS: Albuterol/Ipratropium 3.0-0.5 MG/3 ML Neb Soln NEB SCH ×7 (02:12→22:59)
[2020-11-27] MEDS: Sodium Chloride 0.9% 1,000 ML IV SCH ×2 (02:12→02:21)
[2020-11-27] MEDS: HYDROmorphone 0.5 MG/0.5 ML Syringe IVPUSH PRN ×5 (02:19→20:11)
[2020-11-27] MEDS: Pantoprazole 40 MG Tab.CR PO SCH ×3 (06:05→16:10)
[2020-11-27 07:30] LABS: CHLORIDE,CL 112 mmol/L (98-107); SODIUM,NA 144 mmol/L (136-145)
[2020-11-27] MEDS: Ketorolac 30 MG/ML SDV IVPUSH PRN ×3 (07:33→18:17)
[2020-11-27] MEDS: Ondansetron 4 MG Tab.DIS PO PRN (07:36)
[2020-11-27] MEDS: Azithromycin 500 MG in Sodium Chloride 0.9% 250 ML IV SCH (07:38)
[2020-11-27] MEDS: Nicotine 14 MG/24 Hr Patch TRDERM SCH (07:41)
[2020-11-27] MEDS: Lisinopril 10 MG Tab PO SCH (07:42)
[2020-11-27] MEDS: Magnesium Oxide 400 MG Tab PO SCH (07:42)
[2020-11-27] MEDS: Cyclobenzaprine 10 MG Tab PO SCH ×3 (07:43→20:11)
[2020-11-27] MEDS: Acetaminophen 500 MG Tab PO SCH (07:43)
[2020-11-27] MEDS: Gabapentin 100 MG Cap PO SCH ×2 (07:43→14:06)
[2020-11-27] MEDS: DULoxetine 30 MG Cap PO SCH (07:43)
[2020-11-27] MEDS: predniSONE 20 MG Tab PO SCH (07:43)
[2020-11-27] MEDS: Enoxaparin 40 MG/0.4 ML Syringe SUBCUT SCH (07:44)
[2020-11-27] MEDS ORDERED: Acetaminophen 500 MG Tab PO PRN (09:13)
[2020-11-27] MEDS ORDERED: methylPREDNISolone Sodium Succinate 40 MG/1 ML SDV IVPUSH ONE (09:16)
[2020-11-27] MEDS: Lidocaine 4% 1 each Patch TOP SCH (09:50)
[2020-11-27] MEDS: Sodium Chloride 0.9% 10 ML Syringe FLUSH PRN ×4 (09:50→17:06)
[2020-11-27] MEDS ORDERED: Iopamidol 612 MG/ML 100 ML Bottle IVPUSH ONE (13:59)
--- NOTE | 2020-11-27 14:43 | CT ---
[id number] CT/CT Abdomen Pelvis W IV EXAM: ABDOMEN AND PELVIS CT WITH CONTRAST INDICATION: RIGHT UPPER QUADRANT PAIN. COMPARISON: October 07, 2020. DISCUSSION: Mild to moderately elevated colonic stool volume. Radiopaque material is noted within sigmoid diverticula. No evidence of acute diverticulitis. Moderate-sized hiatus hernia. There are scattered bilateral nonobstructing intrarenal calculi measuring up to 3 mm on the left and 5 mm on the right. 17 mm complicated cyst upper pole left kidney. There are mild groundglass infiltrates in the right lung base not seen on a November 24, 2020 CT The liver is mildly enlarged and demonstrates mild steatosis. Small fat-containing right inguinal hernia. The gallbladder, pancreas, spleen, adrenal glands, small bowel, and the appendix are normal in appearance. The uterus and ovaries are unremarkable. No adenopathy, free air free fluid. Grade 1 degenerative L5-S1 spondylolisthesis. The osseous structures are otherwise unremarkable. IMPRESSION: 1. New mild groundglass infiltrates in the right lung base not seen on the prior study. These could be from volume loss, infection (including COVID 19), or other inflammatory process. 2. Mild moderately elevated colonic stool volume. 3. Nonobstructing bilateral intrarenal calculi. Bharat Schreiber MD 11/27/20 [id number] Thank you for allowing us to participate in the care of your patient.
[2020-11-27] MEDS ORDERED: cefTRIAXone 1 GM Vial IVPUSH SCH (16:45)
[2020-11-27] MEDS ORDERED: Azithromycin 250 MG Tab PO SCH (16:45)
--- NOTE | 2020-11-27 18:05 | PN ---
Progress Note for [facility] Date: 11/27/2020 Room #: VM.204 SUBJECTIVE: This is hospital day #3 on a 50-year-old admitted with COPD exacerbation who unfortunately developed worsening of her right lower chest wall, upper abdominal pain last evening and required increased doses of IV Dilaudid 0.25 up to 2 times overnight. She also has IV Toradol available and did get some this morning, and it helped a little. The patient states she is not short of breath, but when she breathes, it is painful. Her symptoms started getting worse when she tapered off prednisone for her sarcoid from Pulmonary. She continues to smoke. She does have a nebulizer at home. The nebulizers here did help her in the ER. She was here on a previous date and had a negative COVID test. Otherwise, CT on admission did not show any pulmonary embolism. The patient does have a history of kidney stones, but findings on the CT were showing kidney stones potentially more on the left. The patient also has a hiatal hernia and esophagitis which has been followed and is being treated. She will potentially have a Janeth. She did have a bowel movement yesterday. She has been eating 100% of her meals. OBJECTIVE: Vital Signs: Her weight is 71.4 kg. Her temperature is 98.2, pulse 98, blood pressure 132/80, respiratory rate 18, and O2 of 96% on room air. General: She is in no acute distress. Heart: Regular rate and rhythm. Lungs: Lung sounds are clear to auscultation without crackles; however, she does have expiratory wheezing throughout. Skin: Does show some redness and flushing. Abdomen: Positive bowel sounds. Soft and nondistended, but has pain in the right upper quadrant below the rib cage. There are no rashes or abnormal lesions there. Extremities: Warm and dry. No edema. Mental Status: Alert and orientated x3. LABORATORY DATA: Lab work does show the white count up slightly to 15.8, hemoglobin 10.6, and platelets 310. Sodium 144, potassium 4, chloride 112, bicarbonate 26, BUN 12, creatinine 0.7, and glucose 122. Lactic normalized to 1.6, it had been elevated previously up to 2.9. Calcium 7.6. Bilirubin 0.1, AST 14, ALT 19, and alkaline phosphatase 106. Troponin yesterday normal. Protein 5.2 and albumin 2.3. Lipase yesterday was 58. The CT I requested today did show new ground-glass opacities in the right lung base, not seen on the prior study; possible volume loss, infection, or inflammation. Mild to moderate colonic stool. Nonobstructing bilateral intrarenal calculi. ASSESSMENT AND PLAN: 1. Bronchitis and chronic obstructive pulmonary disease exacerbation. Breathing is clinically improving; however, the patient is now having more chest pain. I will switch her oral prednisone over to Solu-Medrol 40 mg once today, reassess tomorrow. 2. Right lower quadrant infiltrate. We will repeat her coronavirus disease test. I will add the IV Rocephin and turn her over to oral Zithromax. I will stop her IV fluids. 3. Atypical chest pain with known costochondritis and fibromyalgia. We will restart her home hydrocodone. 4. Esophagitis. We will continue her home medications. 5. Sarcoidosis. I will contact her pulmonologists and give them an update. 6. Anxiety and depression. She is on her home medications. 7. Essential hypertension, on home medications. 8. Chronic constipation. I will change her stool softeners to 2 tablets b.i.d. 9. Renal stones, known history of this. I do not think they are clinically symptomatic. 10.Deep venous thrombosis prophylaxis. She is on Lovenox. PLAN: The patient will continue acute cares. We will start her on IV Rocephin. I have stopped her IV fluids. We will continue IV Dilaudid for pain and add her oral hydrocodone. Overall, the patient's condition is quite complex, and she has had previous stays for this chest wall pain associated with her esophagitis, now with COPD and bronchitis exacerbation. Consider transfer to [place] if her condition clinically worsens. I will repeat lab work in the morning given the slight increase in white count and include a CRP and ESR. MKA: 11/27/2020 16:36:20 MODL: 11/27/2020 17:59:25 /[id number]
[2020-11-27] MEDS: Gabapentin 300 MG Cap PO SCH (20:11)
[2020-11-27] MEDS: Acetaminophen/HYDROcodone 325-10 MG Tab PO PRN (22:59)
[2020-11-28] MEDS: Albuterol/Ipratropium 3.0-0.5 MG/3 ML Neb Soln NEB SCH ×2 (02:15→05:59)
[2020-11-28] MEDS: HYDROmorphone 0.5 MG/0.5 ML Syringe IVPUSH PRN ×3 (02:15→08:33)
[2020-11-28] MEDS: guaiFENesin 100 MG/5 ML Soln 10 ML UD Cup PO SCH ×2 (04:47→07:23)
[2020-11-28] MEDS: Azithromycin 250 MG Tab PO SCH ×2 (05:54→09:04)
[2020-11-28] MEDS: Pantoprazole 40 MG Tab.CR PO SCH (05:59)
[2020-11-28 06:09] VITALS: BP 145/89; PULSE 106
[2020-11-28 07:09] LABS: CHLORIDE,CL 106 mmol/L (98-107); SODIUM,NA 140 mmol/L (136-145)
[2020-11-28 07:11] LABS: ANION GAP 7.3 mmol/L (5-15)
[2020-11-28] MEDS: Acetaminophen/HYDROcodone 325-10 MG Tab PO PRN (07:23)
[2020-11-28] MEDS: Cyclobenzaprine 10 MG Tab PO SCH (07:23)
[2020-11-28] MEDS: Gabapentin 100 MG Cap PO SCH (07:23)
[2020-11-28] MEDS: Lisinopril 10 MG Tab PO SCH (07:23)
[2020-11-28] MEDS: DULoxetine 30 MG Cap PO SCH (07:24)
[2020-11-28] MEDS: Enoxaparin 40 MG/0.4 ML Syringe SUBCUT SCH (07:24)
[2020-11-28] MEDS: Magnesium Oxide 400 MG Tab PO SCH (07:24)
[2020-11-28] MEDS: Lidocaine 4% 1 each Patch TOP SCH (07:24)
[2020-11-28] MEDS: Nicotine 14 MG/24 Hr Patch TRDERM SCH (07:24)
--- NOTE | 2020-11-28 10:23 | CR ---
[id number] RAD/RAD Chest PA or AP 1V EXAM: RAD Chest PA or AP 1V INDICATION: ATYPICAL CHEST PAIN. COMPARISON: November 25, 2020 DISCUSSION: Cardiomediastinal silhouette is normal in size and contour. No infiltrate, effusion, pneumothorax, or edema. IMPRESSION: No acute cardiopulmonary abnormality. Jaycob Gilbert DO 11/28/20 1022 Thank you for allowing us to participate in the care of your patient.
--- NOTE | 2020-11-28 17:41 | DISCH ---
PRIMARY DISCHARGE DIAGNOSES: 1. Severe right lower chest, right upper quadrant pain, unclear etiology with known previous sarcoid and costochondritis with fibromyalgia. The patient being transferred to [place] for further cares. 2. Bronchitis with chronic obstructive pulmonary disease exacerbation, improving as far as respiratory status with IV Solu-Medrol, nebulizers, and azithromycin. 3. Right lower lobe infiltrate, likely community-acquired pneumonia. Rocephin was started yesterday. The patient has been afebrile. White count has stabilized at 15,000. 4. Esophagitis, improved. She has a hiatal hernia and is planning on Janeth surgery down the road. Her home medications were continued. 5. Sarcoidosis. She had been on tapering doses of prednisone when these symptoms started. 6. Anxiety and depression. 7. Smoking. 8. Chronic constipation. 9. History of kidney stones. 10.DVT prophylaxis. She was treated with Lovenox. REASON FOR ADMISSION: On the date of admission, this 50-year-old female who had been in the ER on the had presented back on the and was admitted. She was getting IV Zithromax, oral prednisone initially, but yesterday due to increasing pain that had worsened since the previous night, she was given Solu- Medrol which did help a little. She was restarted on her oral hydrocodone. She was using her IV Dilaudid 0.25 mg and she got 4 doses overnight which did help some. She used IV Toradol also 3 times yesterday and her Flexeril. She was having increasing symptoms, she was very flushed, and decision was made to transfer her down to [place] for further care. Otherwise, she had a bowel movement recorded during her stay. She was eating 100% of most meals. She was off oxygen. PHYSICAL EXAMINATION: Vital Signs: On discharge vitals on transfer, weight 71.3 kg, temp 98.2, pulse 106, blood pressure 145/89, respiratory rate 16, O2 of 95% on room air. General: She is in mild distress with flushed skin. Heart: Regular rate and rhythm without murmur. Lungs: Lung sounds were clear to auscultation without crackles, without wheezes. No rubs. Abdomen: Positive bowel sounds. Soft, nondistended. The only tenderness was in that right upper quadrant area where she felt like there was sort of a popping under the skin. Her pain was made worse by movement. She could hardly turn over in bed. Extremities: Warm and dry. No edema. Mental Status: Alert and orientated x3. DIAGNOSTIC DATA: Lab work on discharge; white count 15.7, hemoglobin 11.3, platelets 318. Sodium 140, potassium 4.3, chloride 106, bicarb 31, BUN 16, creatinine 0.8, glucose 102, calcium 8.4, CRP 0.9. On 11/26/2020, she had a lipase that was only 58. On the , she also had a normal troponin and EKG did not show any acute changes. She had COVID testing on the and also again on the , both were negative. Lactic was elevated up to 2.9 on the , but normalized yesterday at 1.6. ALT, AST normal yesterday, bilirubin 0.1, alkaline phosphatase normal. DISCHARGE PLANS AND INSTRUCTIONS: The patient is being transferred to [facility] in [place], Dr. Ricks for further cares. Potential other workups to include other concerns like esophageal concerns. Although the patient was not appearing sick enough for a perforation, I elected to transfer her rather than repeating imaging here. She did have a CT of the chest initially that was negative for a pulmonary embolism but that was before her pain worsened. MKA: 11/28/2020 17:04:07 MODL: 11/28/2020 17:34:46 /[id number] MTDD
== END 2020-11-28 09:50 | disposition short-term general hospital (02) | DRG 140 ==
LOC: VM.ED 12:35 → VM.MS 14:11
PROVIDERS: ADMIT Family Medicine; ATTEND Internal Medicine
DX: J44.1 Chronic obstructive pulmonary disease with (acute) exacerbation (principal); J18.9 Pneumonia, unspecified organism; J40 Bronchitis, not specified as acute or chronic; K20.90 Esophagitis, unspecified without bleeding; J44.0 Chronic obstructive pulmonary disease with (acute) lower respiratory infection; E87.2 Acidosis; K44.9 Diaphragmatic hernia without obstruction or gangrene; D86.9 Sarcoidosis, unspecified; F41.9 Anxiety disorder, unspecified; F32.9 Major depressive disorder, single episode, unspecified; F17.210 Nicotine dependence, cigarettes, uncomplicated; K59.09 Other constipation; M94.0 Chondrocostal junction syndrome [Tietze]; F90.9 Attention-deficit hyperactivity disorder, unspecified type; I10 Essential (primary) hypertension; H52.4 Presbyopia; H52.00 Hypermetropia, unspecified eye; R10.11 Right upper quadrant pain; M79.7 Fibromyalgia; J20.9 Acute bronchitis, unspecified; G89.4 Chronic pain syndrome; R07.89 Other chest pain; Z20.822 Contact with and (suspected) exposure to COVID-19; Z87.442 Personal history of urinary calculi; Z88.8 Allergy status to other drugs, medicaments and biological substances; Z79.899 Other long term (current) drug therapy; Z86.010 Personal history of colon polyps; Z98.51 Tubal ligation status
CPT/HCPCS: 36415; 71045; 71046; 74177; 80048; 80053; 83605; 83690; 84484; 85025; 85027; 85652; 86140; 93005; 93010; 94640; 94760; 96374; 96375; 99284; 99285-25; A9270-GY; J0456; J0696; J0780; J1170; J1650; J1885; J2270; J2920; J7030; J7050; J7512; J7620-GY; U0002

== ENCOUNTER 2021-06-01 06:49 | Day surgery (SDC) | payer BC ==
[2021-06-01] MEDS ORDERED: Lactated Ringers 1,000 ML IV SCH (07:00)
[2021-06-01] MEDS ORDERED: fentaNYL 100 MCG/2 ML SDV ONE (07:43)
[2021-06-01] MEDS ORDERED: Propofol 200 MG/20 ML SDV ONE (07:43)
[2021-06-01 09:30] VITALS: BP 126/77; PULSE 78
--- NOTE | 2021-06-04 08:23 | OR ---
PREOPERATIVE DIAGNOSES: 1. Pulmonary sarcoidosis. 2. Symptomatic hiatal hernia. 3. Previously documented significant esophageal inflammation. POSTOPERATIVE DIAGNOSES: 1. Pulmonary sarcoidosis. 2. Symptomatic hiatal hernia. 3. Complete resolution of esophageal inflammation. PROCEDURE PERFORMED: Esophagogastroduodenoscopy. ANESTHESIA: MAC anesthesia. COMPLICATIONS: None. BLOOD LOSS: Minimal. FINDINGS: 1. Moderate hiatal hernia measuring 4 to 5 cm. 2. No inflammation of any sort on this upper endoscopy. 3. The stomach and duodenum were unremarkable. INDICATIONS: Ms. Rita Moreland is a 50-year-old female who has had trouble with some upper abdominal complaints attributable to a hiatal hernia. She also has pulmonary sarcoidosis and her Pulmonology team feels that a component of GERD is contributing to her symptoms. We previously had planned to fix her hiatal hernia close to a year ago, but she ultimately required admission for her lung issues and was temporarily lost to followup. She is now back and reconsidering a hiatal hernia repair. DETAILS OF PROCEDURE: Informed consent was obtained. The patient was brought to the procedure room. She was placed in left lateral decubitus position. MAC anesthesia was administered by Anesthesia colleagues, bite-block was placed. The endoscope was introduced in the mouth, advanced down through the upper esophageal sphincter and into the stomach. The pylorus was intubated. The duodenum was examined up to the second portion. A retroflexed view of the hiatus was obtained and we could see that there was a moderate hiatal hernia consistent with her previous findings. The Z-line was at 31 cm. The scope was then withdrawn. The esophagus was examined on the way out. Everything appeared normal in the esophagus. The patient tolerated the procedure well, was awoken from anesthesia by Anesthesia colleagues without incident. We will discuss with her laparoscopic repair of the hiatal hernia with a fundoplication. RKM: 06/01/2021 08:51:34 MODL: 06/01/2021 15:13:13 /[id number]
== END 2021-06-01 09:59 | disposition home or self-care (01) ==
LOC: VM.SDS 06:49
PROVIDERS: ATTEND Student in an Organized Health Care Education/Training Program
DX: K20.90 Esophagitis, unspecified without bleeding (principal); K44.9 Diaphragmatic hernia without obstruction or gangrene; D86.89 Sarcoidosis of other sites; F17.210 Nicotine dependence, cigarettes, uncomplicated; I10 Essential (primary) hypertension; E03.9 Hypothyroidism, unspecified; Z98.890 Other specified postprocedural states; Z79.899 Other long term (current) drug therapy; Z88.8 Allergy status to other drugs, medicaments and biological substances
CPT/HCPCS: 00731; J2704; J3010; J7120

== ENCOUNTER 2021-06-26 21:42 | Emergency (ER) | payer BC ==
[2021-06-26] MEDS ORDERED: Morphine 2 MG/ML SYRINGE IM ONE ×2 (22:48)
--- NOTE | 2021-06-26 22:51 | EDM.PDOC ---
ED HPI GENERAL MEDICAL PROBLEM - General Chief Complaint: General Stated Complaint: Post surgical pain, post hiatal hernia Time Seen by Provider: 06/26/21 22:44 Source of Information: Reports: Patient - History of Present Illness INITIAL COMMENTS - FREE TEXT/NARRATIVE: Rita is a 50 y/o female who comes to the ER with abdominal pain. She reports that she had hiatal hernia surgery yesterday in [place] by Dr Small. She was discharged today at noon and was advised to use Oxycodone 5mg po q 6 hours instead of her usual Hydrocdone TID. She reports that last time she took pain meds was at 5 pm, tonight. Shr is having 10/10 pain on the left upper abdominal region. She has not attempted to contact her surgeon, Dr Small or the [facility] where she had the procedure done. - Related Data Allergies Allergy/AdvReac Type Severity Reaction Status Date / Time varenicline [From Chantix] Allergy Other Verified 06/26/21 22:44 Home Meds: Home Meds Albuterol Sulfate [Albuterol Sulfate Hfa] 2 inh PO Q6H PRN 05/30/19 [History] Gabapentin [Neurontin] 300 mg PO BEDTIME 08/02/19 [History] hydrOXYzine pamoate [Hydroxyzine Pamoate] 50 mg PO QID PRN 08/02/19 [History] Gabapentin [Neurontin] 100 mg PO BID@08,12 10/09/20 [History] Acetaminophen [Tylenol Extra Strength] 500 mg PO Q4H PRN tablet 10/13/20 [Rx] Pantoprazole [ProTONIX] 40 mg PO BIDAC #60 tab.cr 10/13/20 [Rx] Acetaminophen/HYDROcodone [[place] 325-5 MG] 1 tab PO Q6H PRN 11/25/20 [History] Albuterol Sulfate 0.63 mg NEB QID PRN 11/25/20 [History] Cyclobenzaprine [Flexeril] 10 mg PO TID 11/25/20 [History] Dextroamphetamine/Amphetamine [Adderall 10 mg Tablet] 10 mg PO BID@08,14 11/25/20 [History] Magnesium Oxide 400 mg PO DAILY 11/25/20 [History] Sucralfate [Carafate] 1 gm PO TIDAC PRN 11/25/20 [History] lisinopriL [Lisinopril] 20 mg PO DAILY 11/25/20 [History] Dextroamphetamine/Amphetamine [Adderall 20 mg Tablet] 20 mg PO DAILY@1200 11/27/20 [History] Budesonide/Formoterol Fumarate [Budesonide-Formoterol 160-4.5] 2 puff IH BID 05/15/21 [History] DULoxetine [Cymbalta] 60 mg PO DAILY 05/15/21 [History] Nicotine [Habitrol] 14 mg TOP DAILY 05/15/21 [History] Nicotine [Nicotine Patch] 21 mg TD DAILY 05/15/21 [History] buPROPion [Wellbutrin SR] 150 mg PO BID 05/15/21 [History] predniSONE [Prednisone] 5 mg PO DAILY 05/15/21 [History] predniSONE [Prednisone] 20 mg PO DAILY 05/15/21 [History] Past Medical History HEENT 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 (See Below) Other HEENT History: presbyopia; hypermetropia Cardiovascular History: Reports: Hypertension Respiratory 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 (See Below) Other Respiratory History: SOB; sarcoidosis Gastrointestinal History: Reports: Chronic Constipation, Colon Polyp, Other (See Below) Other Gastrointestinal History: esophagitis Genitourinary History: Reports: Pyelonephritis, Renal Calculus, Other (See Below) Other Genitourinary History: menorrhagia; 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 MOLD SPRAYER 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 (See Below) Other MOLD SPRAYER History: 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 Musculoskeletal History: Reports: Arthritis, Fibromyalgia, Other (See Below) Other Musculoskeletal History: sciatica; arthralgia of both hands Neurological 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 (See Below) Other Neuro History: left carpal tunnel Psychiatric History: Reports: ADHD, Anxiety, Depression, Other (See Below) Other Psychiatric History: tobacco use; chronic opioid use; controlled substance contract Immunologic 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 (See Below) Other Immunologic History: sarcoidosis Dermatologic 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 (See Below) Other Dermatologic History: acne; nevus congenital - Infectious Disease History Infectious Disease History: Reports: Chicken Pox - Past Surgical History Respiratory Surgical History: Reports: Lung Biopsies GI Surgical History: Reports: Colonoscopy, Other (See Below) Other GI Surgeries/Procedures: hemorrhoidectomy Female Surgical History: Reports: Lithotripsy/ESWL, Tubal Ligation, Other (See Below) Other Female Surgeries/Procedures: cyrosurger; colposcopy; Musculoskeletal Surgical History: Reports: Carpal Tunnel Social & Family History - Caffeine Use Caffeine Use: Reports: Soda ED ROS GENERAL - Review of Systems Review Of Systems: See Below Constitutional: Reports: No Symptoms HEENT: Reports: No Symptoms Respiratory: Reports: No Symptoms Cardiovascular: Reports: No Symptoms Endocrine: Reports: No Symptoms GI/Abdominal: Reports: Abdominal Pain : Reports: No Symptoms Musculoskeletal: Reports: No Symptoms Skin: Reports: No Symptoms Neurological: Reports: No Symptoms Psychiatric: Reports: No Symptoms Hematologic/Lymphatic: Reports: No Symptoms Immunologic: Reports: No Symptoms ED EXAM, GENERAL - Physical Exam Exam: See Below General Appearance: Alert, WD/WN (Adult female, hysterically crying. Sitting in whe[place]air.) Ears: Hearing Grossly Normal Throat/Mouth: Normal Voice Head: Atraumatic, Normocephalic Respiratory/Chest: No Respiratory Distress, Chest Non-Tender Cardiovascular: Regular Rate, Rhythm GI/Abdominal: Normal Bowel Sounds, Soft, Tender (to palpation, trocar insertion surgical sites are intact and no sx of infection) (Female) Exam: Deferred Rectal (Female) Exam: Deferred Back Exam: Normal Inspection, Full Range of Motion Extremities: Normal Inspection, Normal Range of Motion, Normal Capillary Refill Neurological: Alert, Oriented, CN II-XII Intact, No Motor/Sensory Deficits Psychiatric: Anxious, Tearful Skin Exam: Warm, Dry, Intact, Normal Color Course - Vital Signs Text/Narrative:: 2243 The patient was seen by the CORPORATE DRIVER SHe was given Morphine 4mg IM. 2319 Pain improved. Advised her to resume home pain med schedule. Will have her contact the surgeon or her PCP in the AM. Written instructions were given and she left the ER in stable condition. - Orders/Labs/Meds Meds: Medications Discontinued Medications Generic Name Dose Route Start Last Admin Trade Name Patrickq PRN Reason Stop Dose Admin Morphine Sulfate 4 mg 06/26/21 22:48 Morphine 2 Mg/Ml Syringe IM 06/26/21 22:49 ONETIME ONE Departure - Departure Time of Disposition: 23:20 Disposition: Home, Self-Care 01 Condition: Good Clinical Impression: Acute postoperative abdominal pain, Hiatal hernia - Discharge Information Instructions: Hiatal Hernia Forms: ED Department Discharge Additional Instructions: -Resume post op pain meds as instructed on your Discharge instructions -Call Dr Small tomorrow to discuss any issues that you are having or follow up with your PCP for further pain meds -Return as needed to the ER for any other concerns - Problem List & Annotations (1) Acute postoperative abdominal pain SNOMED Code(s): 527054589 Code(s): G89.18 - OTHER ACUTE POSTPROCEDURAL PAIN; R10.9 - UNSPECIFIED ABDOMINAL PAIN Status: Acute Current Visit: Yes Annotation/Comment:: Morphine 4mg IM given in the ER. Advised to resume to post op Oxycodone 5mg po q 6hr. Will have her FU with surgeon in the AM. (2) Hiatal hernia SNOMED Code(s): 62302290 Code(s): K44.9 - DIAPHRAGMATIC HERNIA WITHOUT OBSTRUCTION OR GANGRENE Status: Acute Current Visit: Yes Annotation/Comment:: POD #1. Surgical intervention done 06-25-[address] Small at the [facility]. - Problem List Review Problem List Initiated/Reviewed/Updated: Yes - Assessment/Plan Plan: See Above
[2021-06-27 07:36] VITALS: BP 192/101; PULSE 114
== END 2021-06-26 23:35 | disposition home or self-care (01) ==
LOC: VM.ED 21:42
DX: K44.9 Diaphragmatic hernia without obstruction or gangrene (principal); G89.18 Other acute postprocedural pain; I10 Essential (primary) hypertension; Z79.899 Other long term (current) drug therapy; Z88.1 Allergy status to other antibiotic agents
CPT/HCPCS: 96372; 99283; 99284; J2270

== ENCOUNTER 2022-07-10 10:30 | Emergency (ER) | payer BC ==
[2022-07-10 11:26] LABS: CHLORIDE,CL 102 mmol/L (98-107); SODIUM,NA 141 mmol/L (136-145)
[2022-07-10 11:29] LABS: ANION GAP 12.1 mmol/L (5-15); ESTIMATED GFR 89 mL/min (>=60)
[2022-07-10 11:39] LABS: CORONAVIRUS COVID-19 NAA NEGATIVE (NEGATIVE)
[2022-07-10 12:04] VITALS: BP 151/102; PULSE 84
== END 2022-07-10 12:22 | disposition home or self-care (01) ==
LOC: VM.ED 10:30
DX: J18.9 Pneumonia, unspecified organism (principal); E87.6 Hypokalemia; I10 Essential (primary) hypertension; F17.210 Nicotine dependence, cigarettes, uncomplicated; Z88.8 Allergy status to other drugs, medicaments and biological substances; Z79.899 Other long term (current) drug therapy; Z20.822 Contact with and (suspected) exposure to COVID-19
CPT/HCPCS: 0240U; 36415; 70450; 71046; 80053; 81001; 82550; 84484; 85025; 86140; 99284

== ENCOUNTER 2023-01-11 09:44 | Observation (INO) | payer BC ==
[2023-01-11] MEDS ORDERED: Albuterol/Ipratropium 3.0-0.5 MG/3 ML Neb Soln NEB ONE (09:48)
[2023-01-11] MEDS ORDERED: methylPREDNISolone Sodium Succinate 125 MG/2 ML SDV IVPUSH ONE (09:48)
[2023-01-11 09:59] LABS: BASOPHILS PERCENT AUTO 0.4 % (0.2-1.2); EOSINOPHILS ABSOLUTE AUTO 0.9 x10^3/uL (0.0-0.5); EOSINOPHILS PERCENT AUTO 8.3 % (0.0-4.0); HEMOGLOBIN 14.9 g/dL (12.0-16.0); IMMATURE GRAN ABSOLUTE AUTO 0.05 x10^3/uL (0.00-0.07); LYMPHOCYTES ABSOLUTE AUTO 2.8 x10^3/uL (1.0-4.8); MEAN CORPUSCULAR HEMOGLOBIN 31.4 pg (26.0-32.0); MEAN CORPUSCULAR HGB CONC 33.9 g/dL (32.0-36.0); MEAN CORPUSCULAR VOLUME 92.8 fL (78.0-93.0); MONOCYTES ABSOLUTE AUTO 0.8 x10^3/uL (0.0-0.8); MONOCYTES PERCENT AUTO 7.2 % (2.0-11.0); NEUTROPHILS PERCENT AUTO 56.6 % (50.0-80.0); PLATELET COUNT,PLT 396 x10^3/uL (130-400); RED BLOOD CELL COUNT 4.74 x10^6/uL (4.00-5.50); WHITE BLOOD CELL COUNT,WBC 10.5 x10^3/uL (4.0-10.0)
[2023-01-11] MEDS ORDERED: Budesonide 0.5 MG/2 ML Neb Susp NEB ONE (10:12)
[2023-01-11 10:24] LABS: A/G RATIO 0.85; ALANINE AMINOTRANSFERASE,ALT 9 U/L (14-59); ALBUMIN 3.3 g/dL (3.4-5.0); ALKALINE PHOSPHATASE 154 U/L (46-116); ANION GAP 13.9 mmol/L (5-15); ASPARTATE AMNIOTRANSFERASE,AST 16 U/L (15-37); BILIRUBIN TOTAL 0.2 mg/dL (0.2-1.0); BLOOD UREA NITROGEN,BUN 8 mg/dL (7-18); C-REACTIVE PROTEIN 0.9 mg/dL (<=0.9); CALCIUM 9.4 mg/dL (8.5-10.1); CARBON DIOXIDE,CO2 28 mmol/L (21-32); CHLORIDE,CL 103 mmol/L (98-107); CREATININE 0.9 mg/dL (0.55-1.02); ESTIMATED GFR 77 mL/min (>=60); GLUCOSE RANDOM 112 mg/dL (70-99); POTASSIUM,K 3.9 mmol/L (3.5-5.1); PROTEIN TOTAL,TP 7.2 g/dL (6.4-8.2); SODIUM,NA 141 mmol/L (136-145)
[2023-01-11 10:56] LABS: CORONAVIRUS COVID-19 NAA NEGATIVE (NEGATIVE); INFLUENZA A NAA NEGATIVE (NEGATIVE); INFLUENZA B NAA NEGATIVE (NEGATIVE); RESPIRATORY SYNCYTIAL VIR NAA NEGATIVE (NEGATIVE)
[2023-01-11] MEDS ORDERED: Ondansetron 4 MG Tab.DIS PO PRN (12:34)
[2023-01-11] MEDS ORDERED: Ondansetron 4 MG/2 ML SDV IV PRN (12:34)
[2023-01-11] MEDS ORDERED: Albuterol 0.083% 2.5 MG/3 ML Neb Soln NEB PRN (12:34)
[2023-01-11] MEDS: cefTRIAXone 1 GM Vial IVPUSH SCH (13:08)
[2023-01-11] MEDS: Azithromycin 250 MG Tab PO SCH (13:08)
[2023-01-11] MEDS: Acetaminophen 325 MG Tab PO PRN ×3 (13:19→23:03)
[2023-01-11] MEDS ORDERED: Budesonide 0.5 MG/2 ML Neb Susp INH PRN (13:28)
[2023-01-11] MEDS ORDERED: Non-Formulary Medication 1 Each (Budesonide/Formoterol Fumarate 10.2 GM Hfa.Aer.Ad) IH SCH (13:30)
[2023-01-11] MEDS ORDERED: hydrOXYzine HCl 25 MG Tab PO PRN (13:57)
[2023-01-11] MEDS: Formoterol/Mometasone 200-5 MCG 13 GM Inhaler INH SCH ×2 (14:28→23:01)
[2023-01-11] MEDS: Lisinopril 20 MG Tab PO SCH (14:28)
[2023-01-11] MEDS: Nicotine 21 MG/24 Hr Patch TOP SCH (14:28)
[2023-01-11] MEDS: DULoxetine 60 MG Cap PO SCH (14:28)
[2023-01-11] MEDS: Albuterol/Ipratropium 3.0-0.5 MG/3 ML Neb Soln NEB SCH ×2 (14:29→20:57)
[2023-01-11] MEDS: buPROPion 150 MG Tab.ER PO SCH (20:57)
[2023-01-11] MEDS ORDERED: amLODIPine 5 MG Tab PO SCH (21:00)
[2023-01-11] MEDS ORDERED: Non-Formulary Medication 1 Each (Bupropion [Wellbutrin Sr] 150 MG Tab.Sr) PO SCH (21:00)
[2023-01-11] MEDS ORDERED: Gabapentin 300 MG Cap PO SCH (21:00)
[2023-01-12] MEDS: Albuterol/Ipratropium 3.0-0.5 MG/3 ML Neb Soln NEB SCH ×3 (06:28→14:15)
[2023-01-12 07:57] LABS: BASOPHILS PERCENT AUTO 0.2 % (0.2-1.2); EOSINOPHILS ABSOLUTE AUTO 0.1 x10^3/uL (0.0-0.5); EOSINOPHILS PERCENT AUTO 0.5 % (0.0-4.0); HEMOGLOBIN 13.3 g/dL (12.0-16.0); IMMATURE GRAN ABSOLUTE AUTO 0.06 x10^3/uL (0.00-0.07); LYMPHOCYTES ABSOLUTE AUTO 3.2 x10^3/uL (1.0-4.8); LYMPHOCYTES PERCENT AUTO 16.8 % (25.0-50.0); MEAN CORPUSCULAR HEMOGLOBIN 31.3 pg (26.0-32.0); MEAN CORPUSCULAR HGB CONC 33.3 g/dL (32.0-36.0); MEAN CORPUSCULAR VOLUME 94.1 fL (78.0-93.0); MONOCYTES ABSOLUTE AUTO 1.2 x10^3/uL (0.0-0.8); MONOCYTES PERCENT AUTO 6.1 % (2.0-11.0); NEUTROPHILS ABSOLUTE AUTO 14.6 x10^3/uL (1.8-7.7); NEUTROPHILS PERCENT AUTO 76.1 % (50.0-80.0); PLATELET COUNT,PLT 400 x10^3/uL (130-400); RED BLOOD CELL COUNT 4.25 x10^6/uL (4.00-5.50)
[2023-01-12] MEDS: Codeine/Promethazine 10-6.25 MG/5 ML Syrup 5 ML UD Cup PO PRN ×2 (08:04→14:14)
[2023-01-12 08:08] LABS: C-REACTIVE PROTEIN 0.3 mg/dL (<=0.9); CALCIUM 8.9 mg/dL (8.5-10.1); CREATININE 0.8 mg/dL (0.55-1.02); EST CRCL DRUG DOSING (CG) 68.05 mL/min; POTASSIUM,K 3.5 mmol/L (3.5-5.1); WHITE BLOOD CELL COUNT,WBC 19.2 x10^3/uL (4.0-10.0)
[2023-01-12] MEDS: Azithromycin 250 MG Tab PO SCH (08:11)
[2023-01-12] MEDS: Nicotine 21 MG/24 Hr Patch TOP SCH (08:11)
[2023-01-12 08:12] LABS: ANION GAP 11.5 mmol/L (5-15)
[2023-01-12] MEDS: DULoxetine 60 MG Cap PO SCH (08:12)
[2023-01-12] MEDS: buPROPion 150 MG Tab.ER PO SCH (08:12)
[2023-01-12] MEDS: Lisinopril 20 MG Tab PO SCH (08:12)
[2023-01-12] MEDS: Gabapentin 100 MG Cap PO SCH ×2 (08:21→13:45)
[2023-01-12] MEDS: Formoterol/Mometasone 200-5 MCG 13 GM Inhaler INH SCH (08:22)
[2023-01-12] MEDS: cefTRIAXone 1 GM Vial IVPUSH SCH (08:22)
[2023-01-12] MEDS ORDERED: methylPREDNISolone Sodium Succinate 125 MG/2 ML SDV IVPUSH SCH (09:00)
[2023-01-12] MEDS: Acetaminophen 325 MG Tab PO PRN (13:47)
[2023-01-12 14:18] VITALS: BP 125/81; PULSE 110
== END 2023-01-12 15:20 | disposition home or self-care (01) ==
LOC: VM.ED 09:44 → VM.MS 11:35
PROVIDERS: ADMIT Physician Assistant Medical; ATTEND Physician Assistant Medical
DX: R09.02 Hypoxemia (principal); J40 Bronchitis, not specified as acute or chronic; J21.9 Acute bronchiolitis, unspecified; I10 Essential (primary) hypertension; M19.90 Unspecified osteoarthritis, unspecified site; F41.8 Other specified anxiety disorders; F17.200 Nicotine dependence, unspecified, uncomplicated; Z20.822 Contact with and (suspected) exposure to COVID-19; Z86.010 Personal history of colon polyps; Z88.8 Allergy status to other drugs, medicaments and biological substances; Z79.52 Long term (current) use of systemic steroids; Z79.899 Other long term (current) drug therapy
CPT/HCPCS: 0241U; 36415; 71046; 80048; 80053; 85025; 85379; 86140; 94640; 96374; 99285; A9270; J0696; J2930; 96375; 96376; G0378; J3490; J7613-GY; J7620-GY

== ENCOUNTER 2023-04-05 23:29 | Emergency (ER) | payer BC ==
[2023-04-05] MEDS ORDERED: Sodium Chloride 0.9% 10 ML Syringe FLUSH PRN (23:36)
[2023-04-05] MEDS ORDERED: methylPREDNISolone Sodium Succinate 125 MG/2 ML SDV IV ONE (23:37)
[2023-04-05] MEDS ORDERED: Albuterol/Ipratropium 3.0-0.5 MG/3 ML Neb Soln NEB ONE (23:50)
[2023-04-05 23:54] LABS: BASOPHILS PERCENT AUTO 0.1 % (0.2-1.2); EOSINOPHILS ABSOLUTE AUTO 0.9 x10^3/uL (0.0-0.5); EOSINOPHILS PERCENT AUTO 6.5 % (0.0-4.0); HEMATOCRIT 41.2 % (33.0-47.0); HEMOGLOBIN 14.1 g/dL (12.0-16.0); IMMATURE GRAN ABSOLUTE AUTO 0.08 x10^3/uL (0.00-0.07); LYMPHOCYTES ABSOLUTE AUTO 3.8 x10^3/uL (1.0-4.8); LYMPHOCYTES PERCENT AUTO 28.2 % (25.0-50.0); MEAN CORPUSCULAR HEMOGLOBIN 31.8 pg (26.0-32.0); MEAN CORPUSCULAR HGB CONC 34.2 g/dL (32.0-36.0); MONOCYTES ABSOLUTE AUTO 0.9 x10^3/uL (0.0-0.8); MONOCYTES PERCENT AUTO 6.8 % (2.0-11.0); NEUTROPHILS ABSOLUTE AUTO 7.9 x10^3/uL (1.8-7.7); NEUTROPHILS PERCENT AUTO 57.8 % (50.0-80.0); PLATELET COUNT,PLT 389 x10^3/uL (130-400); RED BLOOD CELL COUNT 4.43 x10^6/uL (4.00-5.50); WHITE BLOOD CELL COUNT,WBC 13.6 x10^3/uL (4.0-10.0)
[2023-04-05 23:58] VITALS: PULSE 91
[2023-04-06 00:03] LABS: A/G RATIO 0.97; ALANINE AMINOTRANSFERASE,ALT 12 U/L (14-59); ALBUMIN 3.4 g/dL (3.4-5.0); ALKALINE PHOSPHATASE 132 U/L (46-116); ASPARTATE AMNIOTRANSFERASE,AST 16 U/L (15-37); BILIRUBIN TOTAL 0.5 mg/dL (0.2-1.0); BLOOD UREA NITROGEN,BUN 17 mg/dL (7-18); C-REACTIVE PROTEIN 1.06 mg/dL (<=0.30); CALCIUM 8.7 mg/dL (8.5-10.1); CARBON DIOXIDE,CO2 30 mmol/L (21-32); CHLORIDE,CL 101 mmol/L (98-107); CREATININE 0.9 mg/dL (0.55-1.02); GLUCOSE RANDOM 110 mg/dL (70-99); MAGNESIUM 1.9 mg/dL (1.8-2.4); POTASSIUM,K 3.6 mmol/L (3.5-5.1); PROTEIN TOTAL,TP 6.9 g/dL (6.4-8.2); SODIUM,NA 141 mmol/L (136-145)
[2023-04-06] MEDS ORDERED: Albuterol 0.083% 2.5 MG/3 ML Neb Soln NEB ONE (00:03)
[2023-04-06 00:07] LABS: ANION GAP 13.6 mmol/L (5-15); ESTIMATED GFR 77 mL/min (>=60)
[2023-04-06 00:27] LABS: CORONAVIRUS COVID-19 NAA NEGATIVE (NEGATIVE); INFLUENZA A NAA NEGATIVE (NEGATIVE); INFLUENZA B NAA NEGATIVE (NEGATIVE); RESPIRATORY SYNCYTIAL VIR NAA NEGATIVE (NEGATIVE)
[2023-04-06] MEDS ORDERED: Take Home: Doxycycline 100 MG Cap, 4 Cap Pack PO ONE (00:29)
[2023-04-06] MEDS ORDERED: Take Home: predniSONE 20 MG, 2 Tab Pack PO ONE (00:29)
[2023-04-06] MEDS ORDERED: Take Home: Acetaminophen/Codeine 5 ML Soln 5 ML UD Cup, 2 Cup Pack PO ONE (00:34)
[2023-04-06] MEDS ORDERED: Take Home: Codeine/Promethazine 10-6.25 MG/5 ML Syrup 5 ML, 2 Cup Pack PO ONE (00:35)
[2023-04-06 00:54] VITALS: BP 138/87
== END 2023-04-06 00:50 | disposition home or self-care (01) ==
LOC: VM.ED 23:29
DX: J44.1 Chronic obstructive pulmonary disease with (acute) exacerbation (principal); I10 Essential (primary) hypertension; Z88.8 Allergy status to other drugs, medicaments and biological substances; Z72.0 Tobacco use; Z20.822 Contact with and (suspected) exposure to COVID-19
CPT/HCPCS: 0241U; 71045; 80053; 83735; 85025; 86140; 94640; 96374; 99284; 99285; A9270; J2930; J7512; J7613-GY; J7620-GY

== ENCOUNTER 2023-06-12 16:19 | Inpatient (IN) | payer BC ==
[2023-06-12] MEDS ORDERED: Sodium Chloride 0.9% 10 ML Syringe FLUSH PRN (16:30)
[2023-06-12] MEDS ORDERED: methylPREDNISolone Sodium Succinate 125 MG/2 ML SDV IV ONE (16:31)
[2023-06-12] MEDS ORDERED: Albuterol/Ipratropium 3.0-0.5 MG/3 ML Neb Soln NEB ONE (16:31)
[2023-06-12 16:47] LABS: BASOPHILS PERCENT AUTO 0.3 % (0.2-1.2); EOSINOPHILS ABSOLUTE AUTO 0.6 x10^3/uL (0.0-0.5); HEMATOCRIT 41.6 % (33.0-47.0); IMMATURE GRAN ABSOLUTE AUTO 0.03 x10^3/uL (0.00-0.07); LYMPHOCYTES PERCENT AUTO 21.1 % (25.0-50.0); MEAN CORPUSCULAR HEMOGLOBIN 31.7 pg (26.0-32.0); MEAN CORPUSCULAR HGB CONC 33.7 g/dL (32.0-36.0); MEAN CORPUSCULAR VOLUME 94.1 fL (78.0-93.0); MONOCYTES ABSOLUTE AUTO 0.8 x10^3/uL (0.0-0.8); MONOCYTES PERCENT AUTO 5.8 % (2.0-11.0); NEUTROPHILS ABSOLUTE AUTO 9.8 x10^3/uL (1.8-7.7); NEUTROPHILS PERCENT AUTO 68.6 % (50.0-80.0); PLATELET COUNT,PLT 405 x10^3/uL (130-400); RED BLOOD CELL COUNT 4.42 x10^6/uL (4.00-5.50); WHITE BLOOD CELL COUNT,WBC 14.4 x10^3/uL (4.0-10.0)
[2023-06-12] MEDS ORDERED: Morphine 4 MG/ML Syringe IVPUSH ONE (17:00)
[2023-06-12] MEDS ORDERED: Ketorolac 15 MG/ML SDV IVPUSH ONE (17:01)
[2023-06-12 17:04] LABS: PROTHROMBIN TIME 10.7 SEC (9.5-12.2); PTT,PARTIAL THROMBOPLSTIN TIME 26.1 SEC (23.6-33.6)
[2023-06-12 17:08] LABS: A/G RATIO 0.97; ALANINE AMINOTRANSFERASE,ALT 19 U/L (14-59); ALBUMIN 3.5 g/dL (3.4-5.0); ALKALINE PHOSPHATASE 142 U/L (46-116); ASPARTATE AMNIOTRANSFERASE,AST 23 U/L (15-37); BILIRUBIN TOTAL 0.4 mg/dL (0.2-1.0); BLOOD UREA NITROGEN,BUN 13 mg/dL (7-18); CARBON DIOXIDE,CO2 30 mmol/L (21-32); CHLORIDE,CL 103 mmol/L (98-107); GLUCOSE RANDOM 122 mg/dL (70-99); LACTIC ACID 1.2 mmol/L (0.4-2.0); PROTEIN TOTAL,TP 7.1 g/dL (6.4-8.2); SODIUM,NA 142 mmol/L (136-145)
[2023-06-12 17:09] LABS: ESTIMATED GFR 68 mL/min (>=60)
[2023-06-12] MEDS ORDERED: Albuterol 0.083% 2.5 MG/3 ML Neb Soln NEB ONE (17:17)
[2023-06-12 17:29] LABS: CORONAVIRUS COVID-19 NAA NEGATIVE (NEGATIVE); INFLUENZA A NAA NEGATIVE (NEGATIVE); INFLUENZA B NAA NEGATIVE (NEGATIVE); RESPIRATORY SYNCYTIAL VIR NAA NEGATIVE (NEGATIVE)
[2023-06-12] MEDS ORDERED: Doxycycline Monohydrate 100 MG Cap PO ONE (17:32)
[2023-06-12] MEDS ORDERED: cefTRIAXone 2 GM Vial IVPUSH ONE (17:32)
[2023-06-12 18:02] LABS: HCO3 VENOUS,POC 27 mmol/L (22-29); O2 SATURATION VENOUS,POC 100 %; PCO2 VENOUS,POC 38 mmHg (41-51); PH VENOUS,POC 7.47 pH (7.32-7.43); PO2 VENOUS,POC 186 mmHg
[2023-06-12] MEDS ORDERED: Ondansetron 4 MG Tab.DIS PO PRN (19:01)
[2023-06-12] MEDS ORDERED: Polyethylene Glycol 3350 Powder 17 GM Packet PO PRN (19:01)
[2023-06-12] MEDS ORDERED: Acetaminophen 325 MG Tab PO PRN (19:01)
[2023-06-12] MEDS ORDERED: Albuterol HFA 18 Gm Inhaler INH PRN (19:13)
[2023-06-12] MEDS ORDERED: Budesonide 0.5 MG/2 ML Neb Susp INH PRN (19:13)
[2023-06-12] MEDS: Formoterol/Mometasone 200-5 MCG 13 GM Inhaler INH SCH (20:33)
[2023-06-12] MEDS: amLODIPine 5 MG Tab PO SCH (20:34)
[2023-06-12] MEDS: Gabapentin 300 MG Cap PO SCH (20:34)
[2023-06-12] MEDS: Albuterol/Ipratropium 3.0-0.5 MG/3 ML Neb Soln NEB SCH (20:34)
[2023-06-12] MEDS: Cyclobenzaprine 10 MG Tab PO PRN (20:39)
[2023-06-12] MEDS ORDERED: Potassium Chloride 10 MEQ Tab.ER PO ONE (21:30)
[2023-06-13] MEDS: Levofloxacin 500 MG Tab PO SCH (05:03)
[2023-06-13] MEDS: Albuterol/Ipratropium 3.0-0.5 MG/3 ML Neb Soln NEB SCH ×5 (05:16→20:51)
[2023-06-13] MEDS: Formoterol/Mometasone 200-5 MCG 13 GM Inhaler INH SCH ×3 (05:16→20:45)
[2023-06-13] MEDS: Cyclobenzaprine 10 MG Tab PO PRN ×3 (05:17→20:49)
[2023-06-13 06:45] LABS: BASOPHILS PERCENT AUTO 0.1 % (0.2-1.2); HEMATOCRIT 40.1 % (33.0-47.0); HEMOGLOBIN 13.3 g/dL (12.0-16.0); IMMATURE GRAN ABSOLUTE AUTO 0.06 x10^3/uL (0.00-0.07); LYMPHOCYTES ABSOLUTE AUTO 0.8 x10^3/uL (1.0-4.8); LYMPHOCYTES PERCENT AUTO 6.7 % (25.0-50.0); MEAN CORPUSCULAR HEMOGLOBIN 31.7 pg (26.0-32.0); MEAN CORPUSCULAR HGB CONC 33.2 g/dL (32.0-36.0); MEAN CORPUSCULAR VOLUME 95.5 fL (78.0-93.0); MONOCYTES ABSOLUTE AUTO 0.6 x10^3/uL (0.0-0.8); MONOCYTES PERCENT AUTO 4.6 % (2.0-11.0); NEUTROPHILS ABSOLUTE AUTO 10.5 x10^3/uL (1.8-7.7); NEUTROPHILS PERCENT AUTO 88.1 % (50.0-80.0); PLATELET COUNT,PLT 355 x10^3/uL (130-400)
[2023-06-13 06:58] LABS: ANION GAP 14.5 mmol/L (5-15); CALCIUM 9.1 mg/dL (8.5-10.1); CREATININE 0.8 mg/dL (0.55-1.02); EST CRCL DRUG DOSING (CG) 68.05 mL/min; MAGNESIUM 1.8 mg/dL (1.8-2.4); POTASSIUM,K 3.5 mmol/L (3.5-5.1)
[2023-06-13] MEDS: Enoxaparin 40 MG/0.4 ML Syringe SUBCUT SCH (08:02)
[2023-06-13] MEDS: methylPREDNISolone Sodium Succinate 40 MG/1 ML SDV IVPUSH SCH (08:02)
[2023-06-13] MEDS: DULoxetine 60 MG Cap PO SCH (08:03)
[2023-06-13] MEDS: Celecoxib 100 MG Cap PO SCH (08:03)
[2023-06-13] MEDS: Nicotine 21 MG/24 Hr Patch TRDERM SCH (08:03)
[2023-06-13] MEDS: Gabapentin 100 MG Cap PO SCH ×2 (08:04→11:09)
[2023-06-13] MEDS: buPROPion 150 MG Tab.ER PO SCH (08:04)
[2023-06-13] MEDS: Lisinopril 20 MG Tab PO SCH (08:05)
[2023-06-13] MEDS ORDERED: METHYLPHENIDATE HCL 10 MG PO SCH (12:00)
[2023-06-13] MEDS: Gabapentin 300 MG Cap PO SCH (20:45)
[2023-06-13] MEDS: amLODIPine 5 MG Tab PO SCH (20:51)
[2023-06-14] MEDS: Cyclobenzaprine 10 MG Tab PO PRN ×3 (04:10→20:27)
[2023-06-14] MEDS: Levofloxacin 500 MG Tab PO SCH (04:10)
[2023-06-14] MEDS: Albuterol/Ipratropium 3.0-0.5 MG/3 ML Neb Soln NEB SCH ×4 (06:23→20:24)
[2023-06-14] MEDS: Formoterol/Mometasone 200-5 MCG 13 GM Inhaler INH SCH ×2 (06:23→20:24)
[2023-06-14 07:35] LABS: BASOPHILS PERCENT AUTO 0.1 % (0.2-1.2); EOSINOPHILS ABSOLUTE AUTO 0.2 x10^3/uL (0.0-0.5); EOSINOPHILS PERCENT AUTO 1.5 % (0.0-4.0); HEMATOCRIT 38.6 % (33.0-47.0); HEMOGLOBIN 12.6 g/dL (12.0-16.0); IMMATURE GRAN ABSOLUTE AUTO 0.05 x10^3/uL (0.00-0.07); LYMPHOCYTES ABSOLUTE AUTO 3.6 x10^3/uL (1.0-4.8); LYMPHOCYTES PERCENT AUTO 23.6 % (25.0-50.0); MEAN CORPUSCULAR HEMOGLOBIN 31.7 pg (26.0-32.0); MEAN CORPUSCULAR HGB CONC 32.6 g/dL (32.0-36.0); MEAN CORPUSCULAR VOLUME 97.2 fL (78.0-93.0); MONOCYTES ABSOLUTE AUTO 1.2 x10^3/uL (0.0-0.8); MONOCYTES PERCENT AUTO 7.7 % (2.0-11.0); NEUTROPHILS ABSOLUTE AUTO 10.1 x10^3/uL (1.8-7.7); NEUTROPHILS PERCENT AUTO 66.8 % (50.0-80.0); PLATELET COUNT,PLT 340 x10^3/uL (130-400); RED BLOOD CELL COUNT 3.97 x10^6/uL (4.00-5.50); WHITE BLOOD CELL COUNT,WBC 15.1 x10^3/uL (4.0-10.0)
[2023-06-14 07:58] LABS: A/G RATIO 0.87; ALBUMIN 2.7 g/dL (3.4-5.0); BILIRUBIN TOTAL 0.2 mg/dL (0.2-1.0); CALCIUM 8.3 mg/dL (8.5-10.1); CREATININE 0.8 mg/dL (0.55-1.02); EST CRCL DRUG DOSING (CG) 68.05 mL/min; POTASSIUM,K 3.4 mmol/L (3.5-5.1); PROTEIN TOTAL,TP 5.8 g/dL (6.4-8.2)
[2023-06-14] MEDS: Enoxaparin 40 MG/0.4 ML Syringe SUBCUT SCH (08:12)
[2023-06-14] MEDS: methylPREDNISolone Sodium Succinate 40 MG/1 ML SDV IVPUSH SCH ×2 (08:13→20:20)
[2023-06-14] MEDS: buPROPion 150 MG Tab.ER PO SCH (08:13)
[2023-06-14] MEDS: Nicotine 21 MG/24 Hr Patch TRDERM SCH (08:13)
[2023-06-14] MEDS: Celecoxib 100 MG Cap PO SCH (08:13)
[2023-06-14] MEDS: DULoxetine 60 MG Cap PO SCH (08:13)
[2023-06-14] MEDS: Gabapentin 100 MG Cap PO SCH ×2 (08:13→11:08)
[2023-06-14] MEDS: Lisinopril 20 MG Tab PO SCH (08:14)
[2023-06-14 08:16] LABS: ANION GAP 10.4 mmol/L (5-15)
[2023-06-14] MEDS ORDERED: Potassium Chloride 20 MEQ Tab.ER PO ONE (10:18)
[2023-06-14] MEDS: Gabapentin 300 MG Cap PO SCH (20:27)
[2023-06-14] MEDS: amLODIPine 5 MG Tab PO SCH (20:28)
[2023-06-15] MEDS: Levofloxacin 500 MG Tab PO SCH (05:55)
[2023-06-15] MEDS: Formoterol/Mometasone 200-5 MCG 13 GM Inhaler INH SCH ×2 (06:04→20:04)
[2023-06-15] MEDS: Albuterol/Ipratropium 3.0-0.5 MG/3 ML Neb Soln NEB SCH ×4 (06:04→20:04)
[2023-06-15] MEDS: Cyclobenzaprine 10 MG Tab PO PRN ×3 (06:07→20:15)
[2023-06-15 08:03] LABS: BASOPHILS PERCENT AUTO 0.1 % (0.2-1.2); HEMATOCRIT 40.4 % (33.0-47.0); HEMOGLOBIN 13.2 g/dL (12.0-16.0); IMMATURE GRAN ABSOLUTE AUTO 0.21 x10^3/uL (0.00-0.07); LYMPHOCYTES ABSOLUTE AUTO 1.8 x10^3/uL (1.0-4.8); LYMPHOCYTES PERCENT AUTO 11.3 % (25.0-50.0); MEAN CORPUSCULAR HEMOGLOBIN 31.8 pg (26.0-32.0); MEAN CORPUSCULAR HGB CONC 32.7 g/dL (32.0-36.0); MEAN CORPUSCULAR VOLUME 97.3 fL (78.0-93.0); MONOCYTES ABSOLUTE AUTO 0.9 x10^3/uL (0.0-0.8); MONOCYTES PERCENT AUTO 5.9 % (2.0-11.0); NEUTROPHILS ABSOLUTE AUTO 12.8 x10^3/uL (1.8-7.7); NEUTROPHILS PERCENT AUTO 81.4 % (50.0-80.0); PLATELET COUNT,PLT 372 x10^3/uL (130-400); RED BLOOD CELL COUNT 4.15 x10^6/uL (4.00-5.50); WHITE BLOOD CELL COUNT,WBC 15.7 x10^3/uL (4.0-10.0)
[2023-06-15 08:53] LABS: ALANINE AMINOTRANSFERASE,ALT 20 U/L (14-59); ALKALINE PHOSPHATASE 129 U/L (46-116); BLOOD UREA NITROGEN,BUN 15 mg/dL (7-18); CALCIUM 8.6 mg/dL (8.5-10.1); CARBON DIOXIDE,CO2 29 mmol/L (21-32); CHLORIDE,CL 107 mmol/L (98-107); CREATININE 0.7 mg/dL (0.55-1.02); EST CRCL DRUG DOSING (CG) 77.77 mL/min; GLUCOSE RANDOM 123 mg/dL (70-99); SODIUM,NA 143 mmol/L (136-145)
[2023-06-15 08:55] LABS: ESTIMATED GFR 104 mL/min (>=60)
[2023-06-15 09:10] LABS: A/G RATIO 0.82; ALBUMIN 2.8 g/dL (3.4-5.0); PROTEIN TOTAL,TP 6.2 g/dL (6.4-8.2)
[2023-06-15] MEDS: Gabapentin 100 MG Cap PO SCH ×2 (09:10→11:39)
[2023-06-15] MEDS: buPROPion 150 MG Tab.ER PO SCH (09:10)
[2023-06-15] MEDS: Enoxaparin 40 MG/0.4 ML Syringe SUBCUT SCH (09:10)
[2023-06-15] MEDS: Celecoxib 100 MG Cap PO SCH (09:10)
[2023-06-15] MEDS: DULoxetine 60 MG Cap PO SCH (09:10)
[2023-06-15] MEDS: Nicotine 21 MG/24 Hr Patch TRDERM SCH (09:13)
[2023-06-15] MEDS: methylPREDNISolone Sodium Succinate 40 MG/1 ML SDV IVPUSH SCH ×2 (09:13→20:09)
[2023-06-15 09:14] LABS: ASPARTATE AMNIOTRANSFERASE,AST < 10 U/L (15-37); BILIRUBIN TOTAL < 0.1 mg/dL (0.2-1.0)
[2023-06-15] MEDS: Lisinopril 20 MG Tab PO SCH (09:14)
[2023-06-15] MEDS: amLODIPine 5 MG Tab PO SCH (20:08)
[2023-06-15] MEDS: Gabapentin 300 MG Cap PO SCH (20:08)
[2023-06-16] MEDS: Levofloxacin 500 MG Tab PO SCH (04:47)
[2023-06-16] MEDS: Cyclobenzaprine 10 MG Tab PO PRN (04:47)
[2023-06-16 07:06] LABS: HEMATOCRIT 39.5 % (33.0-47.0); IMMATURE GRAN ABSOLUTE AUTO 0.34 x10^3/uL (0.00-0.07); LYMPHOCYTES ABSOLUTE AUTO 1.8 x10^3/uL (1.0-4.8); LYMPHOCYTES PERCENT AUTO 11.2 % (25.0-50.0); MEAN CORPUSCULAR HEMOGLOBIN 31.9 pg (26.0-32.0); MEAN CORPUSCULAR HGB CONC 32.9 g/dL (32.0-36.0); MEAN CORPUSCULAR VOLUME 96.8 fL (78.0-93.0); MONOCYTES ABSOLUTE AUTO 0.9 x10^3/uL (0.0-0.8); MONOCYTES PERCENT AUTO 5.7 % (2.0-11.0); PLATELET COUNT,PLT 370 x10^3/uL (130-400); RED BLOOD CELL COUNT 4.08 x10^6/uL (4.00-5.50); WHITE BLOOD CELL COUNT,WBC 16.1 x10^3/uL (4.0-10.0)
[2023-06-16] MEDS: Albuterol/Ipratropium 3.0-0.5 MG/3 ML Neb Soln NEB SCH ×2 (07:10→11:09)
[2023-06-16] MEDS: Formoterol/Mometasone 200-5 MCG 13 GM Inhaler INH SCH (07:19)
[2023-06-16 07:41] LABS: ALANINE AMINOTRANSFERASE,ALT 25 U/L (14-59); ALBUMIN 2.8 g/dL (3.4-5.0); ALKALINE PHOSPHATASE 124 U/L (46-116); ASPARTATE AMNIOTRANSFERASE,AST 15 U/L (15-37); BLOOD UREA NITROGEN,BUN 15 mg/dL (7-18); CALCIUM 8.7 mg/dL (8.5-10.1); CARBON DIOXIDE,CO2 27 mmol/L (21-32); CHLORIDE,CL 105 mmol/L (98-107); CREATININE 0.8 mg/dL (0.55-1.02); EST CRCL DRUG DOSING (CG) 68.05 mL/min; GLUCOSE RANDOM 131 mg/dL (70-99); POTASSIUM,K 3.8 mmol/L (3.5-5.1); PROTEIN TOTAL,TP 6.3 g/dL (6.4-8.2); SODIUM,NA 142 mmol/L (136-145)
[2023-06-16 07:47] LABS: ANION GAP 13.8 mmol/L (5-15); ESTIMATED GFR 89 mL/min (>=60)
[2023-06-16 07:51] LABS: BILIRUBIN TOTAL < 0.1 mg/dL (0.2-1.0)
[2023-06-16] MEDS: Enoxaparin 40 MG/0.4 ML Syringe SUBCUT SCH (08:05)
[2023-06-16] MEDS: Gabapentin 100 MG Cap PO SCH ×2 (08:05→11:26)
[2023-06-16] MEDS: DULoxetine 60 MG Cap PO SCH (08:05)
[2023-06-16] MEDS: Celecoxib 100 MG Cap PO SCH (08:05)
[2023-06-16] MEDS: methylPREDNISolone Sodium Succinate 40 MG/1 ML SDV IVPUSH SCH (08:05)
[2023-06-16] MEDS: buPROPion 150 MG Tab.ER PO SCH (08:05)
[2023-06-16] MEDS: Nicotine 21 MG/24 Hr Patch TRDERM SCH (08:06)
[2023-06-16] MEDS: Lisinopril 20 MG Tab PO SCH (08:06)
[2023-06-16] MEDS ORDERED: METHYLPHENIDATE HCL 10 MG PO SCH (14:00)
[2023-06-16 14:37] VITALS: BP 147/84; PULSE 106
== END 2023-06-16 13:30 | disposition home or self-care (01) | DRG 142 ==
LOC: VM.ED 16:19 → VM.MS 17:56
PROVIDERS: ADMIT Physician Assistant; ATTEND Internal Medicine
DX: D86.0 Sarcoidosis of lung (principal); J96.01 Acute respiratory failure with hypoxia; J96.02 Acute respiratory failure with hypercapnia; J44.1 Chronic obstructive pulmonary disease with (acute) exacerbation; I10 Essential (primary) hypertension; F90.9 Attention-deficit hyperactivity disorder, unspecified type; F17.210 Nicotine dependence, cigarettes, uncomplicated; Z20.822 Contact with and (suspected) exposure to COVID-19; E87.6 Hypokalemia; F41.1 Generalized anxiety disorder; F32.9 Major depressive disorder, single episode, unspecified; K59.09 Other constipation; Z79.899 Other long term (current) drug therapy; Z88.8 Allergy status to other drugs, medicaments and biological substances; Z79.52 Long term (current) use of systemic steroids; Z86.010 Personal history of colon polyps; Z87.442 Personal history of urinary calculi; Z87.19 Personal history of other diseases of the digestive system; Z98.51 Tubal ligation status; Z98.890 Other specified postprocedural states
CPT/HCPCS: 0241U; 36415; 71045; 80048; 80053; 82803; 83605; 83735; 84484; 85025; 85610; 85730; 86140; 87040; 93005; 94640; 94760; 96374; 96375; 99285-25; A9270-GY; J0696; J1650; J1885; J2270; J2920; J2930; J3490; J7613-GY; J7620-GY

== ENCOUNTER 2023-08-01 06:53 | Day surgery (SDC) | payer BC ==
[2023-08-01] MEDS ORDERED: Lactated Ringers 1,000 ML IV SCH (07:00)
[2023-08-01] MEDS ORDERED: fentaNYL 100 MCG/2 ML SDV ONE (07:46)
[2023-08-01] MEDS ORDERED: Propofol 200 MG/20 ML SDV ONE ×2 (07:46→08:54)
[2023-08-01 10:35] VITALS: BP 135/78; PULSE 88
[2023-08-01 11:05] LABS: CREATININE 0.9 mg/dL (0.55-1.02); EST CRCL DRUG DOSING (CG) 57.19 mL/min
[2023-08-01] MEDS ORDERED: Iopamidol 612 MG/ML 100 ML Bottle IVPUSH ONE (11:15)
== END 2023-08-01 11:35 | disposition home or self-care (01) ==
LOC: VM.SDS 06:53
PROVIDERS: ATTEND Student in an Organized Health Care Education/Training Program
DX: D12.5 Benign neoplasm of sigmoid colon (principal); I10 Essential (primary) hypertension; J45.40 Moderate persistent asthma, uncomplicated; J44.1 Chronic obstructive pulmonary disease with (acute) exacerbation; D86.9 Sarcoidosis, unspecified; E87.6 Hypokalemia; M25.542 Pain in joints of left hand; M25.541 Pain in joints of right hand; F32.9 Major depressive disorder, single episode, unspecified; F17.210 Nicotine dependence, cigarettes, uncomplicated; Z79.899 Other long term (current) drug therapy; Z88.8 Allergy status to other drugs, medicaments and biological substances
CPT/HCPCS: 00811; 36415; 45385; 74177; 82565; J2704; J3010; J7120; Q9967

== ENCOUNTER 2023-08-30 18:55 | Emergency (ER) | payer BC ==
[2023-08-30 19:15] VITALS: BP 138/92; PULSE 103
[2023-08-30] MEDS: Take Home: Acetaminophen/Codeine 300 MG/30 MG, 5 Tab Pack PO ONE (19:21)
[2023-08-30] MEDS: Take Home: Amoxicillin/Clavulanate K 875-125 MG Tab, 2 Tab Pack PO ONE (19:21)
[2023-08-30] MEDS: Amoxicillin/Clavulanate K 875-125 MG Tab PO SCH (19:21)
[2023-08-31] MEDS: Take Home: Amoxicillin/Clavulanate K 875-125 MG Tab, 2 Tab Pack PO ONE (14:56)
== END 2023-08-30 19:28 | disposition home or self-care (01) ==
LOC: VM.ED 18:55
DX: K08.89 Other specified disorders of teeth and supporting structures (principal); I10 Essential (primary) hypertension; J44.9 Chronic obstructive pulmonary disease, unspecified; F17.210 Nicotine dependence, cigarettes, uncomplicated; Z79.899 Other long term (current) drug therapy; Z88.8 Allergy status to other drugs, medicaments and biological substances
CPT/HCPCS: 99282; A9270

== ENCOUNTER 2023-09-08 12:04 | Emergency (ER) | payer BC ==
[2023-09-08 11:04] LABS: BASOPHILS PERCENT AUTO 0.4 % (0.2-1.2); EOSINOPHILS ABSOLUTE AUTO 0.6 x10^3/uL (0.0-0.5); EOSINOPHILS PERCENT AUTO 6.4 % (0.0-4.0); HEMATOCRIT 42.4 % (33.0-47.0); HEMOGLOBIN 13.7 g/dL (12.0-16.0); IMMATURE GRAN ABSOLUTE AUTO 0.03 x10^3/uL (0.00-0.07); LYMPHOCYTES ABSOLUTE AUTO 3.7 x10^3/uL (1.0-4.8); LYMPHOCYTES PERCENT AUTO 37.9 % (25.0-50.0); MEAN CORPUSCULAR HEMOGLOBIN 30.9 pg (26.0-32.0); MEAN CORPUSCULAR HGB CONC 32.3 g/dL (32.0-36.0); MEAN CORPUSCULAR VOLUME 95.5 fL (78.0-93.0); MONOCYTES ABSOLUTE AUTO 0.6 x10^3/uL (0.0-0.8); NEUTROPHILS ABSOLUTE AUTO 4.9 x10^3/uL (1.8-7.7); PLATELET COUNT,PLT 410 x10^3/uL (130-400); RED BLOOD CELL COUNT 4.44 x10^6/uL (4.00-5.50); WHITE BLOOD CELL COUNT,WBC 9.9 x10^3/uL (4.0-10.0)
[2023-09-08 11:26] LABS: A/G RATIO 0.78; ALANINE AMINOTRANSFERASE,ALT 14 U/L (14-59); ALBUMIN 2.9 g/dL (3.4-5.0); ALKALINE PHOSPHATASE 115 U/L (46-116); ASPARTATE AMNIOTRANSFERASE,AST 11 U/L (15-37); BILIRUBIN TOTAL 0.2 mg/dL (0.2-1.0); BLOOD UREA NITROGEN,BUN 10 mg/dL (7-18); C-REACTIVE PROTEIN 2.02 mg/dL (<=0.50); CARBON DIOXIDE,CO2 31 mmol/L (21-32); CHLORIDE,CL 105 mmol/L (98-107); CREATININE 0.9 mg/dL (0.55-1.02); GLUCOSE RANDOM 116 mg/dL (70-99); POTASSIUM,K 3.4 mmol/L (3.5-5.1); PROTEIN TOTAL,TP 6.6 g/dL (6.4-8.2); SODIUM,NA 145 mmol/L (136-145)
[2023-09-08 11:27] LABS: ANION GAP 12.4 mmol/L (5-15); ESTIMATED GFR 76 mL/min (>=60)
[2023-09-08 11:44] LABS: CORONAVIRUS COVID-19 NAA NEGATIVE (NEGATIVE); INFLUENZA A NAA NEGATIVE (NEGATIVE); INFLUENZA B NAA NEGATIVE (NEGATIVE); RESPIRATORY SYNCYTIAL VIR NAA NEGATIVE (NEGATIVE)
[2023-09-08 12:04] VITALS: BP 113/69; PULSE 90
[~2023-09-08 12:04] MED LIST: Albuterol/Ipratropium 3.0-0.5 MG/3 ML Neb Soln NEB ONE; Codeine/Promethazine 10-6.25 MG/5 ML Syrup 5 ML UD Cup PO ONE; Ketorolac 30 MG/ML SDV IVPUSH ONE
== END 2023-09-08 12:22 | disposition home or self-care (01) ==
LOC: VM.ED 12:22
DX: J44.1 Chronic obstructive pulmonary disease with (acute) exacerbation (principal); I10 Essential (primary) hypertension; F17.210 Nicotine dependence, cigarettes, uncomplicated; Z20.822 Contact with and (suspected) exposure to COVID-19; Z88.0 Allergy status to penicillin; Z79.899 Other long term (current) drug therapy
CPT/HCPCS: 0241U; 36415; 71046; 80053; 85025; 86140; 94640; 96374; 99285; A9270; J1885; J7620-GY

== ENCOUNTER 2023-12-25 06:53 | Emergency (ER) | payer BC ==
[2023-12-25] MEDS: Albuterol/Ipratropium 3.0-0.5 MG/3 ML Neb Soln NEB ONE (07:15)
[2023-12-25] MEDS: methylPREDNISolone Sodium Succinate 125 MG/2 ML SDV IVPUSH ONE (07:27)
[2023-12-25 07:29] LABS: BASOPHILS ABSOLUTE AUTO 0.1 x10^3/uL (0.0-0.2); BASOPHILS PERCENT AUTO 0.5 % (0.2-1.2); EOSINOPHILS ABSOLUTE AUTO 0.7 x10^3/uL (0.0-0.5); EOSINOPHILS PERCENT AUTO 6.1 % (0.0-4.0); HEMATOCRIT 45.6 % (33.0-47.0); HEMOGLOBIN 15.1 g/dL (12.0-16.0); IMMATURE GRAN ABSOLUTE AUTO 0.07 x10^3/uL (0.00-0.07); LYMPHOCYTES ABSOLUTE AUTO 2.6 x10^3/uL (1.0-4.8); LYMPHOCYTES PERCENT AUTO 21.7 % (25.0-50.0); MEAN CORPUSCULAR HEMOGLOBIN 31.7 pg (26.0-32.0); MEAN CORPUSCULAR HGB CONC 33.1 g/dL (32.0-36.0); MEAN CORPUSCULAR VOLUME 95.6 fL (78.0-93.0); MONOCYTES ABSOLUTE AUTO 0.7 x10^3/uL (0.0-0.8); MONOCYTES PERCENT AUTO 5.9 % (2.0-11.0); NEUTROPHILS ABSOLUTE AUTO 7.7 x10^3/uL (1.8-7.7); NEUTROPHILS PERCENT AUTO 65.2 % (50.0-80.0); PLATELET COUNT,PLT 405 x10^3/uL (130-400); RED BLOOD CELL COUNT 4.77 x10^6/uL (4.00-5.50); WHITE BLOOD CELL COUNT,WBC 11.9 x10^3/uL (4.0-10.0)
[2023-12-25 07:54] LABS: A/G RATIO 0.94; ALANINE AMINOTRANSFERASE,ALT 15 U/L (14-59); ALBUMIN 3.3 g/dL (3.4-5.0); ALKALINE PHOSPHATASE 112 U/L (46-116); ASPARTATE AMNIOTRANSFERASE,AST 10 U/L (15-37); BILIRUBIN TOTAL 0.2 mg/dL (0.2-1.0); BLOOD UREA NITROGEN,BUN 15 mg/dL (7-18); CARBON DIOXIDE,CO2 29 mmol/L (21-32); CHLORIDE,CL 106 mmol/L (98-107); CREATININE 0.8 mg/dL (0.55-1.02); GLUCOSE RANDOM 108 mg/dL (70-99); POTASSIUM,K 3.7 mmol/L (3.5-5.1); PROTEIN TOTAL,TP 6.8 g/dL (6.4-8.2); SODIUM,NA 144 mmol/L (136-145)
[2023-12-25 07:55] LABS: ANION GAP 12.7 mmol/L (5-15); C-REACTIVE PROTEIN < 0.50 mg/dL (<=0.50); ESTIMATED GFR 88 mL/min (>=60)
[2023-12-25 10:39] VITALS: BP 142/100; PULSE 73
== END 2023-12-25 08:40 | disposition home or self-care (01) ==
LOC: VM.ED 06:53
DX: J44.0 Chronic obstructive pulmonary disease with (acute) lower respiratory infection (principal); J20.9 Acute bronchitis, unspecified; I10 Essential (primary) hypertension; F17.200 Nicotine dependence, unspecified, uncomplicated; Z88.8 Allergy status to other drugs, medicaments and biological substances; Z79.51 Long term (current) use of inhaled steroids; Z79.899 Other long term (current) drug therapy
CPT/HCPCS: 71046; 80053; 84484; 85025; 86140; 93005; 94640; 96374; 99285; J2930; 93010; 99284; J7620-GY

== ENCOUNTER 2024-05-14 11:18 | Emergency (ER) | payer SELFPAY ==
[2024-05-14] MEDS ORDERED: Sodium Chloride 0.9% 10 ML Syringe FLUSH PRN (11:30)
[2024-05-14] MEDS: Albuterol/Ipratropium 3.0-0.5 MG/3 ML Neb Soln NEB ONE (11:30)
[2024-05-14] MEDS: Albuterol 0.083% 2.5 MG/3 ML Neb Soln NEB ONE (11:41)
[2024-05-14] MEDS: methylPREDNISolone Sodium Succinate 125 MG/2 ML SDV IV ONE (11:48)
[2024-05-14 12:23] LABS: CORONAVIRUS COVID-19 NAA NEGATIVE (NEGATIVE); INFLUENZA A NAA NEGATIVE (NEGATIVE); INFLUENZA B NAA NEGATIVE (NEGATIVE); RESPIRATORY SYNCYTIAL VIR NAA NEGATIVE (NEGATIVE)
[2024-05-14 17:26] VITALS: BP 142/100; PULSE 78
== END 2024-05-14 12:38 | disposition home or self-care (01) ==
LOC: VM.ED 11:18
DX: J44.9 Chronic obstructive pulmonary disease, unspecified (principal); I10 Essential (primary) hypertension; Z79.899 Other long term (current) drug therapy; Z88.8 Allergy status to other drugs, medicaments and biological substances
CPT/HCPCS: 0241U; 71045; 94640; 96374; 99284; 99285-25; J2919; J7613-GY; J7620-GY

== ENCOUNTER 2024-06-18 21:28 | Emergency (ER) | payer SELFPAY ==
[2024-06-18] MEDS: Albuterol 0.083% 2.5 MG/3 ML Neb Soln NEB ONE (22:16)
[2024-06-18] MEDS: Take Home: Albuterol 0.083% 2.5 MG/3 ML Neb Soln, 5 Neb Pack NEB ONE (22:27)
[2024-06-18] MEDS: methylPREDNISolone Sodium Succinate 125 MG/2 ML SDV IM ONE (22:31)
[2024-06-19 06:37] VITALS: BP 170/90; PULSE 105
== END 2024-06-18 22:42 | disposition home or self-care (01) ==
LOC: VM.ED 21:28
DX: J44.1 Chronic obstructive pulmonary disease with (acute) exacerbation (principal); I10 Essential (primary) hypertension; Z79.52 Long term (current) use of systemic steroids; Z79.899 Other long term (current) drug therapy; Z88.8 Allergy status to other drugs, medicaments and biological substances
CPT/HCPCS: 71045; 94640; 96372; 99283; 99284; A9270; J2919; J7613-GY

== ENCOUNTER 2024-06-24 19:35 | Emergency (ER) | payer SELFPAY ==
[2024-06-24 19:44] LABS: BILIRUBIN,URINE NEGATIVE (NEGATIVE); COLOR,URINE YELLOW (YELLOW); GLUCOSE,URINE NEGATIVE (NEGATIVE); KETONES,URINE NEGATIVE (NEGATIVE); LEUKOCYTE ESTERASE,URINE SMALL (NEGATIVE); NITRITE,URINE NEGATIVE (NEGATIVE); OCCULT BLOOD,URINE TRACE-INTACT (NEGATIVE); PROTEIN,URINE NEGATIVE (NEGATIVE); UROBILINOGEN,URINE 0.2 EU/dL (0.2)
[2024-06-24] MEDS ORDERED: Sodium Chloride 0.9% 10 ML Syringe FLUSH PRN (19:45)
[2024-06-24] MEDS: HYDROmorphone 0.5 MG/0.5 ML Syringe IVPUSH ONE (19:51)
[2024-06-24 19:52] LABS: APPEARANCE,URINE SLIGHTLY CLOUDY (CLEAR)
[2024-06-24] MEDS: droPERidol 5 MG/2 ML SDV IVPUSH ONE (19:52)
[2024-06-24] MEDS: Ketorolac 15 MG/ML SDV IVPUSH ONE (19:52)
[2024-06-24 19:53] LABS: BACTERIA,URINE OCCASIONAL /HPF (NOT SEEN); CALCIUM OXALATE CRYSTALS,URINE OCCASIONAL /HPF (NOT SEEN); MUCUS,URINE FEW /LPF (NOT SEEN); SQUAMOUS EPITHELIAL CELLS,UR FEW /HPF (NOT SEEN); WBC,URINE 30-40 /HPF (NOT SEEN)
[2024-06-24] MEDS: diphenhydrAMINE 50 MG/ML SDV IVPUSH ONE (19:54)
[2024-06-24 19:58] LABS: BASOPHILS ABSOLUTE AUTO 0.1 x10^3/uL (0.0-0.2); BASOPHILS PERCENT AUTO 0.4 % (0.2-1.2); EOSINOPHILS ABSOLUTE AUTO 0.9 x10^3/uL (0.0-0.5); EOSINOPHILS PERCENT AUTO 6.1 % (0.0-4.0); HEMATOCRIT 42.6 % (33.0-47.0); HEMOGLOBIN 14.2 g/dL (12.0-16.0); IMMATURE GRAN ABSOLUTE AUTO 0.08 x10^3/uL (0.00-0.07); LYMPHOCYTES ABSOLUTE AUTO 4.4 x10^3/uL (1.0-4.8); LYMPHOCYTES PERCENT AUTO 30.2 % (25.0-50.0); MEAN CORPUSCULAR HEMOGLOBIN 31.9 pg (26.0-32.0); MEAN CORPUSCULAR HGB CONC 33.3 g/dL (32.0-36.0); MEAN CORPUSCULAR VOLUME 95.7 fL (78.0-93.0); MONOCYTES ABSOLUTE AUTO 0.8 x10^3/uL (0.0-0.8); MONOCYTES PERCENT AUTO 5.7 % (2.0-11.0); NEUTROPHILS ABSOLUTE AUTO 8.3 x10^3/uL (1.8-7.7); PLATELET COUNT,PLT 362 x10^3/uL (130-400); RED BLOOD CELL COUNT 4.45 x10^6/uL (4.00-5.50); WHITE BLOOD CELL COUNT,WBC 14.5 x10^3/uL (4.0-10.0)
[2024-06-24 20:10] LABS: LACTIC ACID 1.2 mmol/L (0.4-2.0)
[2024-06-24 20:16] LABS: A/G RATIO 0.94; ALANINE AMINOTRANSFERASE,ALT 21 U/L (14-59); ALBUMIN 3.3 g/dL (3.4-5.0); ALKALINE PHOSPHATASE 148 U/L (46-116); ASPARTATE AMNIOTRANSFERASE,AST 11 U/L (15-37); BILIRUBIN TOTAL 0.2 mg/dL (0.2-1.0); BLOOD UREA NITROGEN,BUN 17 mg/dL (7-18); CALCIUM 9.1 mg/dL (8.5-10.1); CARBON DIOXIDE,CO2 33 mmol/L (21-32); CHLORIDE,CL 103 mmol/L (98-107); CREATININE 0.9 mg/dL (0.55-1.02); GLUCOSE RANDOM 111 mg/dL (70-99); POTASSIUM,K 3.2 mmol/L (3.5-5.1); PROTEIN TOTAL,TP 6.8 g/dL (6.4-8.2); SODIUM,NA 145 mmol/L (136-145)
[2024-06-24 20:18] LABS: ANION GAP 12.2 mmol/L (5-15); C-REACTIVE PROTEIN < 0.50 mg/dL (<=0.50); ESTIMATED GFR 76 mL/min (>=60)
[2024-06-24] MEDS: Lactated Ringers 1,000 ML IV ONE (20:40)
[2024-06-24] MEDS: cefTRIAXone 1 GM Vial IVPUSH ONE (20:40)
[2024-06-24 20:54] VITALS: PULSE 77
[2024-06-24] MEDS: Iopamidol 612 MG/ML 100 ML Bottle IVPUSH ONE (20:59)
[2024-06-24 21:22] VITALS: BP 130/80
[2024-06-24] MEDS: Tamsulosin 0.4 MG Cap.ER PO ONE (21:38)
[2024-06-24] MEDS: Take Home: Acetaminophen/HYDROcodone 325-5 MG, 5 Tab Pack PO ONE (21:38)
== END 2024-06-24 21:55 | disposition home or self-care (01) ==
LOC: VM.ED 19:35
DX: N20.0 Calculus of kidney (principal); N39.0 Urinary tract infection, site not specified; I10 Essential (primary) hypertension; Z88.0 Allergy status to penicillin; Z88.8 Allergy status to other drugs, medicaments and biological substances; Z79.899 Other long term (current) drug therapy; Z87.891 Personal history of nicotine dependence
CPT/HCPCS: 80053; 81001; 81025; 83605; 85025; 86140; 87086; 96361; 96374; 96375; 99284-25; A9270-GY; J0696; J1171; J1200; J1790; J1885; J7120; Q9967

== ENCOUNTER 2025-02-12 17:42 | Emergency (ER) | payer BC ==
[2025-02-12] MEDS: Take Home: Naproxen 500 MG Tab, 4 Tab Pack PO ONE (18:00)
[2025-02-12] MEDS: Take Home: Cyclobenzaprine 10 MG Tab, 4 Tab Pack PO ONE (18:01)
[2025-02-12 18:32] VITALS: BP 138/72; PULSE 89
== END 2025-02-12 18:07 | disposition home or self-care (01) ==
LOC: VM.ED 17:42
DX: M54.50 Low back pain, unspecified (principal); I10 Essential (primary) hypertension; J44.9 Chronic obstructive pulmonary disease, unspecified; F17.210 Nicotine dependence, cigarettes, uncomplicated; Z88.0 Allergy status to penicillin; Z88.1 Allergy status to other antibiotic agents; Z79.51 Long term (current) use of inhaled steroids; Z79.899 Other long term (current) drug therapy
CPT/HCPCS: 99283; A9270-GY